=== PATIENT | female | born 1960 | race Caucasian/White ===

== ENCOUNTER 2022-02-05 08:04 | Outpatient (REF) | payer MEDICARE, MEDICAID, SELFPAY ==
[2022-02-05 09:05] LABS: Estimated Average Glucose 117 mg/dL; Hemoglobin A1c % 5.7 %
[2022-02-05 09:49] LABS: Alanine Aminotransferase 14 U/L (0-31); Albumin Level 4.4 g/dL (3.5-5.0); Alkaline Phosphatase 90 U/L (39-117); Anion Gap 16 (12-20); Aspartate Amino Transferase 12 U/L (5-31); Bilirubin Total < 0.2 mg/dL (0.0-1.0); Blood Urea Nitrogen 22 mg/dL (9-16); Calcium 9.3 mg/dL (8.4-10.2); Carbon Dioxide 22 mmol/L (22-29); Chloride 105 mmol/L (96-108); Cholesterol 227 mg/dL; Estimated Glomerular Filt Rate 54; Glucose Random 186 mg/dL (60-115); HDL Cholesterol 67 mg/dL; LDL Cholesterol Calculated 137 mg/dl; Potassium 4.4 mmol/L (3.3-5.1); Sodium 139 mmol/L (135-145); Total Protein 7.1 g/dL (6.5-8.0); Triglycerides 119 mg/dL
[2022-02-05 10:11] LABS: T4 Thyroxine 6.9 ug/dL (4.5-12.0); Thyroid Stimulating Hormone 0.54 uIU/mL (0.32-4.0)
== END 2022-02-05 08:05 | disposition home or self-care (01) ==
LOC: HO.LAB 08:04
PROVIDERS: PCP Internal Medicine; Visit Provider Psychiatry & Neurology Psychiatry
DX: Z79.899 Other long term (current) drug therapy (principal)
CPT/HCPCS: 36415; 80053; 80061; 83036; 84436; 84443

== ENCOUNTER 2023-05-16 23:54 | Observation (INO) | payer MEDICARE, MEDICAID, SELFPAY ==
--- NOTE | ~2023-05-16 | CT_ITS ---
EXAMINATION: CTA NECK WITH CONTRAST (STROKE) CTA BRAIN WITH CONTRAST (STROKE) CLINICAL INFORMATION: Suspect acute stroke. Assess for major vessel occlusion. Please call report. COMPARISON: None available. TECHNIQUE: CTA of the head and neck was performed in the axial plane from the mediastinum to the skull vertex using 70 mL Omnipaque 350 intravenous contrast. Additional reformatted multiplanar images including maximum intensity projection MIP images are generated on the CT workstation. This CT examination was performed using dose optimization techniques as appropriate, variously including the following: *Automated exposure control *Adjustment of mA and/or kV according to patient size (this includes techniques or standardized protocols for targeted exams where dose is matched to indication/reason for exam; i.e. extremities or head) *Use of iterative reconstruction technique DLP: 1292 mGy-cm FINDINGS: The degree of stenosis determined by criteria similar to NASCET. BONES, SOFT TISSUES AND LUNG APICES: Bronchial wall thickening. Scattered centrilobular nodular opacities with areas of tree-in-bud nodularity throughout the upper lungs. CTA NECK: The aortic arch has a two-vessel branching pattern and the major arch vessel origins are non-stenotic. The vertebral arteries are co-dominant and both vertebral origins are widely patent. Both common carotid arteries are normal in course and caliber. Both internal carotid arteries demonstrate mild atherosclerotic plaque without significant stenosis. CTA HEAD: There is normal opacification of the major intracranial vessels. No acute proximal large vessel occlusion, focal flow-limiting stenosis, or saccular intracranial aneurysm is identified. No abnormal parenchymal enhancement or regional oligemia is visualized. HEAD (delayed): No intracranial mass, intercerebral edema, hemorrhage, or midline shift is evident. Stable chronic right basal ganglial infarct and mild background chronic white matter small vessel ischemic changes. The ventricles and sulci are stable in size and configuration. No extra-axial collections are appreciated. No pathologic intracranial enhancement. Dural sinuses are patent. The paranasal sinuses are well-aerated and clear. CT/CT angio head neck stroke IMPRESSION: * No large vessel occlusion or hemodynamically significant stenosis within the intracranial or extracranial arterial vasculature. * Stable chronic right basal ganglial infarct and mild background white matter small vessel ischemic changes. * Scattered centrilobular nodular opacities with areas of tree-in-bud nodularity throughout the upper lungs suggestive of infectious or inflammatory bronchiolitis. This critical result was discussed with Dr Manan Perkins at 05/17/2023 1:05AM and it was ascertained that the content and urgency of the report was understood at the time of direct communication.
--- NOTE | ~2023-05-16 | CT_ITS ---
EXAMINATION: CT HEAD WITHOUT CONTRAST (STROKE PROTOCOL) CLINICAL INFORMATION: Stroke protocol. Recent stroke 6 weeks ago with residual left facial droop. Worsening face, arm and leg weakness. COMPARISON: None available. TECHNIQUE: Contiguous axial imaging was performed from the skull base to vertex without intravenous administration of contrast. This CT examination was performed using dose optimization techniques as appropriate, variously including the following: *Automated exposure control *Adjustment of mA and/or kV according to patient size (this includes techniques or standardized protocols for targeted exams where dose is matched to indication/reason for exam; i.e. extremities or head) *Use of iterative reconstruction technique DLP: 530 mGy-cm FINDINGS: Chronic right lentiform infarct extending into the right ratliff radiata. Bolaños-white matter interface is otherwise maintained. No acute intracranial hemorrhage. No abnormal mass effect or midline shift is seen. No extra-axial fluid collections are identified. No hydrocephalus. No significant volume loss. Patchy periventricular and deep white matter hypoattenuation is consistent with mild small vessel ischemic changes. No acute osseous or soft tissue abnormality. The mastoid air cells and visualized portions of the paranasal sinuses are well aerated. CT/CT head for stroke IMPRESSION: * No acute intracranial pathology. * Chronic right basal ganglial infarct and mild background white matter small vessel ischemic changes. This critical result was discussed with Dr Manan Perkins at 05/17/2023 12:25 AM and it was ascertained that the content and urgency of the report was understood at the time of direct communication.
[2023-05-16 23:55] VITALS: BP 160/100; PULSE 80; O2SAT 98; BMI 30.9
--- NOTE | 2023-05-16 23:59 | ED_ITS ---
HPI - Neuro Symptoms/Deficit General Chief Complaint: Weakness Stated Complaint: left arm numbness for 2 hours, stroke 6 weeks ago Time Seen by Provider: 05/16/23 23:59 Source: patient and EMS Mode of arrival: EMS Limitations: no limitations History of Present Illness HPI Narrative: 63-year-old female with a history of hypertension, ovarian cancer (1999), cholecystectomy, stroke with left-sided weakness 6 weeks prior who presents emergency department for evaluation of left arm and leg numbness with heaviness in the left arm with symptoms starting at 22:00 hours while the patient was watching TV. Patient states that when she had her stroke 6 weeks prior the symptoms started with numbness in her arm and leg. Patient states that since her last stroke she has recovered almost full strength in her left leg but still has some weakness in her left arm. Patient was concerned that she was having a new stroke so she called an ambulance and was transported to the emergency department. Paramedics reported a blood pressure 160/100, sinus rhythm on the EKG, O2 saturation 98% on room air with a point of care glucose of 197. Patient was evaluated on the coating engineer stretcher and was brought directly to CT scan. Related Data Previous Rx's Medication Instructions Recorded mirtazapine 15 mg tablet 15 mg PO BEDTIME #90 tabs 04/29/20 quetiapine 25 mg tablet 25 mg PO BID #180 tabs 04/29/20 Allergies Allergy/AdvReac Type Severity Reaction Status Date / Time aspirin [ASA] Allergy Intermediate GI UPSET, Unverified 02/15/20 15:43 nausea and vomiting calcium carbonate [Bufferin] Allergy Unknown Verified 07/20/19 00:00 magnesium [Bufferin] Allergy Unknown Verified 07/20/19 00:00 butter Allergy Unknown vomiting Uncoded 10/09/19 00:00 milk Allergy Unknown vomiting Uncoded 10/09/19 00:00 Review of Systems 2 Review of Systems: Yes all other systems are reviewed and are negative [facility] Past Medical History [facility] Narrative: Past medical history: Hypertension, stroke 6 weeks prior treated at [facility], ovarian cancer in 1999. Surgical history: cholecystectomy, hernia repair. Social history: Patient does smoke cigarettes, she smokes several cigarettes per day times 40 years. She denies alcohol use. She smokes marijuana 2 to 3 times a week Social History Social History Smoked in Last 30 Days: Yes Use of substances other than those prescribed or required for medical reasons: Yes Substance Use Type: Marijuana Substance Use Frequency: Chronic Longstanding Advance Directives: No Advance Directives Information Provided: No Patient : No Physical Exam 2 Vital Signs: Vital Signs: Last Vital Signs Temp 98.7 F 05/17/23 00:47 Pulse 68 05/17/23 00:47 Resp 16 05/17/23 00:47 BP 151/86 H 05/17/23 00:47 Pulse Ox 99 05/17/23 00:47 O2 Del Method Room Air 05/17/23 00:47 BMI result Body Mass Index 30.9 Vital signs revealed an elevated blood pressure of 151/86 Exam General: Awake, alert in no distress Head: Normocephalic, atraumatic EENT: PERRL, Lids normal, sclera normal, conjunctiva normal, nose normal , ears normal, throat without erythema or exudates Neck: Supple, no adenopathy, no trachea midline or C-spine tenderness Lung: breath sounds symmetric, no wheezing, rales or rhonchi Chest: symmetric movement, nontender Heart: regular rate and rhythm, normal S1, S2 no murmurs or rubs Abdomen: soft, non-tender, nondistended, normal bowel sounds Back: no vertebral tenderness, no CVAT Extremities: no deformities, moves all extremities symmetrically Skin: no rashes, no lesion, normal color and warmth Neuro: General: Awake, alert, oriented, normal speech Cranial nerves 2-12: Mild left facial droop Strength: Patient able to hold both upper and lower extremities up his gravity, patient has diminished strength in the left arm compared to the right and the left leg compared to the right Sensory exam: Normal light touch bilaterally symmetric Psych: Pleasant, cooperative Medications Administered Discontinued Medications Generic Name Dose Route Start Last Admin Trade Name Freq PRN Reason Stop Dose Admin Iohexol 70 ml 05/17/23 00:47 05/17/23 00:47 Iohexol 350 Mg/Ml 100 Ml Infus..Btl IV 05/17/23 00:48 70 ml ONCE ONE Administration Medical Decision Making Medical Decision Making MDM Narrative: 63-year-old female with a history of hypertension, stroke 6 weeks prior who presents emergency department for evaluation of numbness and heaviness of her left upper and lower extremity which began at 22:30 hours while she was watching TV. Patient states that the numbness felt similar to the numbness that occurred when she had her previous stroke. Vital signs did reveal an elevated blood pressure. Examination revealed left facial droop and weakness of her left upper and lower extremities compared to the right but these are most likely residual from her stroke 6 weeks prior. Patient's sensory exam was normal. Patient's NIH stroke scale was 1. 01:23 My interpretation patient's laboratory evaluation as follows: CBC was normal. Coags were normal. BUN was elevated 27 with normal creatinine of 0.89. Glucose was elevated 122. Twelve EKG with normal sinus rhythm CT scan of the head revealed a chronic right basal ganglion infarct with mild back from white matter and small-vessel ischemia but no acute stroke or bleed. CT angiogram of the head and neck revealed no retrievable large vessel occlusion The patient's presentation is concerning for possible stroke versus TIA. I will discuss admission with the covering hospitalist. Differential Diagnosis Differential Diagnoses: The differential diagnosis associated with the presentation includes Differential diagnosis includes was not limited to stroke, cerebral bleed, electrolyte abnormality, anemia, anxiety Admission/Observation Consideration of admission/observation: Escalation of care including admission/observation considered Consult Healthcare Provider Management of the patient was discussed with: Hospitalist Lab Data MDM Lab Attestation statement: I reviewed the patient's lab results. See MDM above 05/17/23 01:01 05/17/23 01:01 Labs: Lab Results 05/16/23 05/17/23 05/17/23 Range/Units 23:58 00:01 01:01 WBC 9.7 (4.8-10.8) X10*3/uL RBC 4.92 (4.20-5.50) X10*6/uL Hgb 13.3 (12.0-16.0) g/dl Hct 40.6 (37.0-47.0) % MCV 82.5 (80.0-98.0) fL MCH 27.0 (27.0-33.0) pg MCHC 32.8 (31.0-35.0) g/dl RDW 14.9 (11.0-16.0) % Plt Count 348 (160-400) X10*3/uL MPV 8.8 L (9.4-12.3) fL Immature Gran % (Auto) 0.3 (0.0-0.4) % Neut % (Auto) 70.5 (45-73) % Lymph % (Auto) 18.7 L (20-40) % Jasper % (Auto) 9.0 (2-11) % Eos % (Auto) 0.9 (0-4) % Baso % (Auto) 0.6 (0-2) % Lymph # (Auto) 1.8 (1.2-4.9) X10*3/uL Jasper # (Auto) 0.9 (0.1-1.2) X10*3/uL Eos # (Auto) 0.1 (0.0-0.4) X10*3/uL Baso # (Auto) 0.1 (0.0-0.2) X10*3/uL Abs Immat Gran (auto) 0.03 (0.00-0.03) X10*3/uL Absolute Neuts (auto) 6.8 (2.0-8.3) x10*3/uL Absolute Nucleated RBC 0.000 (0.0-0.012) X10*3/uL Nucleated RBC % (auto) 0.0 (0.0-0.2) /100WBC PT 10.1 L (11.1-13.3) SEC Whole Blood PT 13.6 H (11.1-13.5) sec INR 0.8 L (0.9-1.1) Whole Blood INR 1.0 (0.9-1.1) APTT 32.1 (26.0-36.4) SEC Sodium 138 (135-145) mmol/L Potassium 4.4 (3.3-5.1) mmol/L Chloride 108 (96-108) mmol/L Carbon Dioxide 22 (22-29) mmol/L Anion Gap 12 (12-20) BUN 27 H (9-16) mg/dL Creatinine 0.89 (0.5-1.4) mg/dL Estim Creat Clear Calc 61.1 Estimated GFR > 60 POC Glucose 156 H (60-115) mg/dL Random Glucose 122 H (60-115) mg/dL Calcium 9.8 (8.4-10.2) mg/dL Total Bilirubin 0.3 (0.0-1.0) mg/dL Direct Bilirubin 0.1 (0.0-0.5) mg/dL AST 17 (5-31) U/L ALT 21 (0-31) U/L Alkaline Phosphatase 91 (39-117) U/L Total Creatine Kinase 44 (26-140) U/L Troponin I High Sens < 2.7 (<3.5-17.0) ng/L Total Protein 6.8 (6.5-8.0) g/dL Albumin 4.3 (3.5-5.0) g/dL Ethyl Alcohol < 10 mg/dL Independent Interpretation I performed an independent interpretation of an: EKG Interpretation: My interpretation patient's 12 EKG done at 00:10 hours is as follows: Normal sinus rhythm with a rate of 81, normal PA interval, QRS duration, QTC interval, no ST segment elevation, no ST segment depression, no PACs, no PVCs no T-wave significant abnormalities Radiology Impression Discussion of test interpretation with radiology: I discussed test interpretation with the radiologist and I have reviewed the radiologist's reading. Radiologist Impression: CT head for stroke IMPRESSION: * No acute intracranial pathology. * Chronic right basal ganglial infarct and mild background white matter small vessel ischemic changes. This critical result was discussed with Dr Manan Perkins at 05/17/2023 12:25 AM and it was ascertained that the content and urgency of the report was understood at the time of direct communication. Dictated By: Mehran Tracey MD CT angio head neck stroke IMPRESSION: * No large vessel occlusion or hemodynamically significant stenosis within the intracranial or extracranial arterial vasculature. * Stable chronic right basal ganglial infarct and mild background white matter small vessel ischemic changes. * Scattered centrilobular nodular opacities with areas of tree-in-bud nodularity throughout the upper lungs suggestive of infectious or inflammatory bronchiolitis. This critical result was discussed with Dr Manan Perkins at 05/17/2023 1:05AM and it was ascertained that the content and urgency of the report was understood at the time of direct communication. Dictated By: Mehran Tracey MD NIH Stroke Scale Internal: Initial- Upon Arrival Level of Consciousness: Alert Level of Consciousness Questions: Answers both questions correctly Level of Consciousness Commands: Performs both tasks correctly Best Gaze: Normal Visual: No visual loss Facial Palsy: Minor paralyis Motor Arm (Right): No drift Motor Arm (Left): No drift Motor Leg (Right): No drift Motor Leg (Left): No drift Limb Ataxia: Absent Sensory: Normal Best Language: No aphasia Dysarthia: Normal Extinction and Inattention: No abnormality Score: 1 Critical Care Time Critical Care Time Critical Care Time: Yes Total Critical Care Time: 45 Attestation: Critical Care: The patient was critically ill with a high probability of imminent or life threatening deterioration. I spent greater than 30 minutes of discontinuous time evaluating the patient,delivering critical care at the bedside, discussing and evaluating pertinent data with consultants. Critical care time does not include time spent performing separately billable procedures or teaching. Total time spent performing critical care was 45 minutes. Discharge Plan Discharge Prescriptions: No Action mirtazapine 15 mg tablet 15 mg PO BEDTIME Qty: 90 3RF quetiapine 25 mg tablet 25 mg PO BID Qty: 180 5RF
--- NOTE | 2023-05-16 23:59 | ECG_ITS ---
Test Reason : stroke Blood Pressure : / mmHG Vent. Rate : 081 BPM Atrial Rate : 081 BPM P-R Int : 130 ms QRS Dur : 090 ms QT Int : 410 ms P-R-T Axes : 075 038 064 degrees QTc Int : 476 ms Normal sinus rhythm Nonspecific T wave abnormality Abnormal ECG When compared with ECG of 31-MAR-2019 02:23, No significant change was found Referred By: Manan Perkins Electronically Signed By:MOSHE TORO MD
[2023-05-17 00:04] LABS: Prothrombin Time Whole Bld POC 13.6 sec (11.1-13.5)
[2023-05-17 00:07] LABS: Glucose, Whole Blood 156 mg/dL (60-115)
[2023-05-17 00:13] VITALS: BP 151/80; PULSE 80; RESP 16; TEMP 36.2; O2SAT 98
[2023-05-17 00:47] VITALS: BP 151/86; PULSE 68; RESP 16; TEMP 37.1; O2SAT 99
[2023-05-17] MEDS: iohexoL 350 MG/ML 100 ML INFUS..BTL 70 ML IV (00:47)
[2023-05-17 01:05] LABS: MANUAL DIFF FLAG NO
[2023-05-17 01:07] LABS: Basophils Absolute Auto 0.1 X10*3/uL (0.0-0.2); Basophils Percent Auto 0.6 % (0-2); Eosinophils Absolute Auto 0.1 X10*3/uL (0.0-0.4); Eosinophils Percent Auto 0.9 % (0-4); Hematocrit 40.6 % (37.0-47.0); Hemoglobin 13.3 g/dl (12.0-16.0); Imm Gran Abs Auto 0.03 X10*3/uL (0.00-0.03); Imm Gran Pct Auto 0.3 % (0.0-0.4); Lymphocytes Absolute Auto 1.8 X10*3/uL (1.2-4.9); Lymphocytes Percent Auto 18.7 % (20-40); Mean Corpuscular HGB Conc 32.8 g/dl (31.0-35.0); Mean Corpuscular Volume 82.5 fL (80.0-98.0); Mean Platelet Volume 8.8 fL (9.4-12.3); Monocytes Absolute Auto 0.9 X10*3/uL (0.1-1.2); Neutrophils Absolute Auto 6.8 x10*3/uL (2.0-8.3); Neutrophils Percent Auto 70.5 % (45-73); Platelet Count 348 X10*3/uL (160-400); Red Blood Count 4.92 X10*6/uL (4.20-5.50); Red Cell Distribution Width 14.9 % (11.0-16.0); White Blood Count 9.7 X10*3/uL (4.8-10.8)
[2023-05-17 01:12] LABS: INTERNATIONAL NORM RATIO 0.8 (0.9-1.1); Prothrombin Time 10.1 SEC (11.1-13.3)
[2023-05-17 01:15] LABS: Partial Thromboplastin Time 32.1 SEC (26.0-36.4)
[2023-05-17 01:16] LABS: Stroke Lab Use COMPLETE
[2023-05-17 01:24] LABS: Alanine Aminotransferase 21 U/L (0-31); Albumin Level 4.3 g/dL (3.5-5.0); Alkaline Phosphatase 91 U/L (39-117); Anion Gap 12 (12-20); Aspartate Amino Transferase 17 U/L (5-31); Bilirubin Direct 0.1 mg/dL (0.0-0.5); Bilirubin Total 0.3 mg/dL (0.0-1.0); Blood Urea Nitrogen 27 mg/dL (9-16); Calcium 9.8 mg/dL (8.4-10.2); Carbon Dioxide 22 mmol/L (22-29); Chloride 108 mmol/L (96-108); Creatinine Clr Calc Pharmacy 61.1; Estimated Glomerular Filt Rate > 60; Ethanol < 10 mg/dL; Glucose Random 122 mg/dL (60-115); Potassium 4.4 mmol/L (3.3-5.1); Sodium 138 mmol/L (135-145); Total Protein 6.8 g/dL (6.5-8.0)
[2023-05-17 01:28] LABS: Troponin-I High Sensitivity < 2.7 ng/L (<3.5-17.0)
--- OUTSIDE RECORDS SUMMARY | 2023-05-17 01:31 | XMS_ITS | Continuity of Care Document ---
Author Name Unknown Organization [facility] ter Address [address] [place] [id number]- Care Team Providers Care Medical Imaging Technician Name Role Phone Not on Staff, PCP Primary Care Physician Unavail able Encounter [facility] Date(s): 03/30/23 - 04/01/[address] [id number]- Encounter Diagnosis Arterial ischemic stroke(Final) - 03/31/23 Anxiety and depression(Final) - 03/31/23 Discharge Disposition: A-D/C Home Attending Physician: Britney Gomez MD Admitting Physician: Cuco Mcfadden DO Referring Physician: Not on Staff, Referring MD Allergies, Adverse Reactions, Alerts Substance Reaction Severity Status aspirin GI s/s Active Motrin GI s/s Active Immunizations Given and Recorded Vaccine Date Status Refusal Reason influenza virus vaccine, inactivated 04/01/23 Give n influenza virus vaccine, inactivated 05/08/20 Reuben rded influenza virus vaccine, inactivated 02/23/16 Reuben rded influenza virus vaccine, inactivated 03/28/15 Reuben rded SARS-CoV-2 (COVID-19) mRNA-1273 vaccine 05/01/21 R ecorded SARS-CoV-2 (COVID-19) mRNA-1273 vaccine 09/19/20 R ecorded SARS-CoV-2 (COVID-19) mRNA-1273 vaccine 08/22/20 R ecorded pneumococcal 23-valent vaccine 12/15/12 Given pneumococcal 23-valent vaccine 01/06/12 Recorded Fluarix (oldterm) 03/15/12 Given Tet/diphth/pertussis, acel (oldterm) 03/15/12 Give n tetanus/diphtheria/pertussis, acel(Tdap) 03/15/12 Recorded Fluvirin (oldterm) 04/03/11 Given Medications busPIRone 30 mg oral tablet 1 tablet = 30 mg, By Mouth, 2 times a day, # 180 tablet, 0 Refills, Maintenance, 03/30/23 21:59:00 EDT, Tablet, Partial fill upon patient request if the prescription is for a schedule II opioid drug. Start Date: 03/30/23 Status: Ordered escitalopram 20 mg oral tablet 1 tablet = 20 mg, By Mouth, Daily, # 30 tablet, 0 Refills, Maintenance, 03/30/23 22:01:00 EDT, Tablet, Partial fill upon patient request if the prescription is for a schedule II opioid drug. Start Date: 03/30/23 Status: Ordered hydrOXYzine hydrochloride 50 mg oral tablet 1 tablet = 50 mg, By Mouth, 3 times a day, PRN for anxiety, # 40 tablet, 0 Refills, Maintenance, 03/30/23 21:59:00 EDT, Tablet, Partial fill upon patient request if the prescription is for a scheduleII opioid drug. Start Date: 03/30/23 Status: Ordered Lipitor 40 mg oral tablet = 40 mg, By Mouth, Daily at bedtime, 0 Refills, Maintenance, 04/01/23 13:20:00 EDT, Tablet, Partialfill upon patient request if the prescription is for a schedule II opioid drug. Start Date: 04/01/23 Status: Ordered melatonin 3 mg oral tablet = 3 mg, By Mouth, Daily at bedtime, PRN Insomnia, 0 Refills, Maintenance, 04/01/23 13:21:00 EDT, Tablet, Partial fill upon patient request if the prescription is for a schedule II opioid drug. Start Date: 04/01/23 Status: Ordered MiraLax Powder 1 pack/packet = 17 Gm, By Mouth, Daily, PRN Constipation, 0 Refills, Maintenance, 04/01/23 13:21:00EDT, Powder, Partial fill upon patient request if the prescription is for a schedule II opioid drug. Start Date: 04/01/23 Status: Ordered mirtazapine 45 mg oral tablet 1 tablet = 45 mg, By Mouth, Daily at bedtime, # 30 tablet, 0 Refills, Maintenance, 03/30/23 22:00:00 EDT, Tablet, Partial fill upon patient request if the prescription is for a schedule II opioid drug. Start Date: 03/30/23 Status: Ordered Nicotine = 21 mg, Topically, Daily, 0 Refills, Maintenance, 04/01/23 13:21:00 EDT, Patch, Partial fill upon patient request if the prescription is for a schedule II opioid drug. Start Date: 04/01/23 Status: Ordered Plavix 75 mg oral tablet 75 mg, By Mouth, Daily, Refills 0, Maintenance, 04/01/23 13:21:00 EDT, Partial fill upon patient request if the prescription is for a schedule II opioid drug. Start Date: 04/01/23 Status: Ordered propranolol 10 mg oral tablet 10 mg, Tablet, By Mouth, 04/01/23 10:02:00 EDT Start Date: 04/01/23 Stop Date: 04/01/23 Status: Completed propranolol 10 mg oral tablet 10 mg, 1, tablet, By Mouth, 2 times a day, # 180 tablet, Refills 0, Maintenance, 03/30/23 22:00:00 EDT, Partial fill upon patient request if the prescription is for a schedule II opioid drug. Start Date: 03/30/23 Status: Ordered QUEtiapine 50 mg oral tablet 1 tablet = 50 mg, By Mouth, 2 times a day, # 180 tablet, 0 Refills, Maintenance, 03/30/23 21:59:00 EDT, Tablet, Partial fill upon patient request if the prescription is for a schedule II opioid drug. Start Date: 03/30/23 Status: Ordered Problem List Condition Confirmation Course Effective Dates Status Health St atus Informant Abdominal pain NOS Confirmed 06/03/11 Active Cannabis user, Patient acknowledges use Confirmed Active Chest pain NOS Confirmed 05/01/11 Active Chronic abdominal pain Confirmed Active Chronic nausea Confirmed Active Cigarette smoker Confirmed Active Depression Confirmed Active Depression, major Confirmed 04/05/12 Active Depressive Disorder, Not Elsewhere Classified Confirmed 04/05/12 Active GERD (gastroesophageal reflux disease) Confirmed Active Obesity Confirmed Active 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 Panic disorder Confirmed Active Panic Disorder without Agoraphobia Confirmed 04/05/12 Active Results Radiology Reports * Exam Date Time Procedure Performing Provider Status 03/31/23 4:32 AM MRI Brain W/O Contrast Joselin Dang; Au th (Verified) Notes: (MRI Brain W/O Contrast) Reason For Exam: left sided weakness, r/o infarct;Hemiparesis RESULT: MRI Brain W/O Contrast MRI Brain W/O Contrast INDICATION: Reason: Hemiparesis; left sided weakness, r o infarct; Clinical Question(s): Infarction; Order Comment: Please see Reference Text for complete list of contraindications Infarction TECHNIQUE: MRI of the brain was performed without contrast utilizing sagittal T1, axial T2, axial FLAIR, axial SWAN, and axial DWI sequences. COMPARISON: CT scan of the head 03/30/2023. FINDINGS: Multiple images are degraded by patient motion which diminishes detail, and interpretation was made in light of this technical confine. BRAIN and EXTRA-AXIAL SPACES: There is a confluent region of T2 bright signal and mildly restricteddiffusion involving the posterior right caudate body and putamen. This correlates with the region of diminished density on the prior studies. A chronic left thalamocapsular lacunar infarct is present, and small FLAIR bright foci are also noted within the gamaliel. These are compatible with chronic microangiopathic/small vessel ischemic change.No abnormal susceptibility artifact to indicate hemorrhage. The ventricles are normal in size. Mild prominence of the sulci. No extra-axial fluid collection. EXTRACRANIAL SOFT TISSUES: Orbits are unremarkable. Paranasal sinuses and mastoids are unremarkable. BONES: Marrow signal is preserved. IMPRESSION: 1. Acute-subacute right corpus striatal infarct without hemorrhagic transformation. 2. Chronic left thalamocapsular junction lacunar infarct. WSN: [id number] Ordering Physician: Gagan Crouch Dictated By: Jeovanny Singh MD Dictated Date/Time: 03/31/23 7:46 am Reviewed By: Jeovanny Singh MD Signed By: Jeovanny Singh MD Signed Date/Time: 03/31/23 7:46 am Transcribed By: CANDICE Transcribed Date/Time: 03/31/23 7:41 am * Exam Date Time Procedure Performing Provider Status 03/30/23 2:39 PM Chest Portable Rod Loaiza; Auth ( Verified) Notes: (Chest Portable) Reason For Exam: Stroke;Other: RESULT: Chest Portable Chest Portable Hx of Present Illness: Pt reports 3 days ago she started with falling, leaning to L side, having slurred speech and a L facial droop. L arm is weak and numb; Reason: Other:; Stroke; Clinical Question(s): CHF COMPARISON: Multiple priors with the most recent dated 04/19/2011. FINDINGS: LINES AND TUBES: None. LUNGS AND PLEURA: Clear lungs. Normal pulmonary vascularity. No pleural effusion. No pneumothorax. HEART, MEDIASTINUM AND LYSSA: Heart is normal in size. Normal mediastinal and hilar contour. BONES AND SOFT TISSUES: No acute abnormality. IMPRESSION: No acute abnormality. WSN: [id number] Ordering Physician: Mary Martinez Dictated By: Steven Hernandez MD, V Dictated Date/Time: 03/30/23 3:22 pm Reviewed By: Steven Hernandez MD, V Signed By: Steven Hernandez MD, V Signed Date/Time: 03/30/23 3:22 pm Transcribed By: CANDICE Transcribed Date/Time: 03/30/23 3:21 pm * Exam Date Time Procedure Performing Provider Status 03/30/23 2:[address] Angio Neck Hyperacute Stroke Cathy Chu; Auth (Verified) Notes: (CT Angio Neck Hyperacute Stroke) Reason For Exam: Aneurysm, neck vessel(s);Other: RESULT: CT Angio Neck Hyperacute Stroke CT Angio Head Hyperacute Stroke, CT Angio Neck Hyperacute Stroke Hx of Present Illness: Pt reports 3 days ago she started with falling, leaning to L side, having slurred speech and a L facial droop. L arm is weak and numb; Reason: Other:; Stroke; Clinical Question(s): Other:; Hematoma Aneurysm / Other: TECHNIQUE: CT angiogram of the head and neck was performed after bolus administration of intravenous contrast. 100 mL of Omnipaque 300 was administered intravenously. Coronal and sagittal MIP reformatted images were obtained. Additional 3-D images were created on a separate workstation under concurrent supervision by the attending radiologist. All stenoses are measured using NASCET criteria. Weight-based protocol using automatic tube modulation was used to optimize exposure parameters. RADIATION DOSE PARAMETERS: CTDIvol Body: 10.33 mGy, DLP Body: 383 mGy*cm. CTDIvol Head: 45.50 mGy, DLP Head: 772 mGy*cm. COMPARISON: Noncontrast CT head performed concurrently. FINDINGS: CTA OF THE NECK: Arch: There is a three vessel aortic arch. The origins of the supra aortic vessels are patent. Right carotid system: The common carotid and cervical internal carotid arteries are patent. There is minimal atherosclerotic plaque at the carotid bifurcation, but no ICA stenosis (0%) by NASCET criteria. Left carotid system: The common carotid and cervical internal carotid arteries are patent. No stenosis (0%) by NASCET criteria. The left ICA is tortuous. There is a left-dominant vertebral artery system. Right vertebral: Patent. Left vertebral: Patent. Other: Soft tissues and bones: No evidence of lymphadenopathy or mass. The thyroid is unremarkable. Visualized lungs are blurred by motion artifact, without significant superimposed airspace opacity. Mild degenerative changes of the cervical spine are noted, without acute osseous abnormality. CTA OF THE HEAD: Anterior circulation: Minimal calcification is seen along the intracranial ICAs without significantnarrowing. There is a 2 mm aneurysm projected posteriorly from the right supraclinoid ICA. The anterior cerebral arteries are patent and normal in caliber. Bilateral M1 and proximal M2 segments are patent and normal in caliber. Posterior circulation: The right vertebral artery is hypoplastic after giving off PICA, normal variant. The left vertebral is normal in caliber. The basilar artery, superior cerebellar arteries, and posterior cerebral arteries are patent with a small left posterior communicating artery noted. Veins: Major dural venous sinuses are patent. Other: Soft tissues and bones: There is hypodensity in the right posterior thalamus extending into the ratliff radiata and into the caudate body suggesting subacute ischemia. Gaze is noted to be towards the right. No significant opacification in the paranasal sinuses or mastoid air cells. IMPRESSION: 1. No proximal occlusion or high grade stenosis in the major arteries of the head and neck. 2. Suspected subacute right corpus striatum infarct. 3. 2 mm right supraclinoid ICA aneurysm. WSN: [id number] Ordering Physician: Mary Martinez Dictated By: Kendra Lawson MD Dictated Date/Time: 03/30/23 3:05 pm Reviewed By: Kendra Lawson MD Signed By: Kendra Lawson MD Signed Date/Time: 03/30/23 3:05 pm Transcribed By: CANDICE Transcribed Date/Time: 03/30/23 2:30 pm * Exam Date Time Procedure Performing Provider Status 03/30/23 2:[address] Angio Head Hyperacute Stroke Cathy Chu; Auth (Verified) Notes: (CT Angio Head Hyperacute Stroke) Reason For Exam: Stroke;Other: RESULT: CT Angio Head Hyperacute Stroke CT Angio Head Hyperacute Stroke, CT Angio Neck Hyperacute Stroke Hx of Present Illness: Pt reports 3 days ago she started with falling, leaning to L side, having slurred speech and a L facial droop. L arm is weak and numb; Reason: Other:; Stroke; Clinical Question(s): Other:; Hematoma Aneurysm / Other: TECHNIQUE: CT angiogram of the head and neck was performed after bolus administration of intravenous contrast. 100 mL of Omnipaque 300 was administered intravenously. Coronal and sagittal MIP reformatted images were obtained. Additional 3-D images were created on a separate workstation under concurrent supervision by the attending radiologist. All stenoses are measured using NASCET criteria. Weight-based protocol using automatic tube modulation was used to optimize exposure parameters. RADIATION DOSE PARAMETERS: CTDIvol Body: 10.33 mGy, DLP Body: 383 mGy*cm. CTDIvol Head: 45.50 mGy, DLP Head: 772 mGy*cm. COMPARISON: Noncontrast CT head performed concurrently. FINDINGS: CTA OF THE NECK: Arch: There is a three vessel aortic arch. The origins of the supra aortic vessels are patent. Right carotid system: The common carotid and cervical internal carotid arteries are patent. There is minimal atherosclerotic plaque at the carotid bifurcation, but no ICA stenosis (0%) by NASCET criteria. Left carotid system: The common carotid and cervical internal carotid arteries are patent. No stenosis (0%) by NASCET criteria. The left ICA is tortuous. There is a left-dominant vertebral artery system. Right vertebral: Patent. Left vertebral: Patent. Other: Soft tissues and bones: No evidence of lymphadenopathy or mass. The thyroid is unremarkable. Visualized lungs are blurred by motion artifact, without significant superimposed airspace opacity. Mild degenerative changes of the cervical spine are noted, without acute osseous abnormality. CTA OF THE HEAD: Anterior circulation: Minimal calcification is seen along the intracranial ICAs without significantnarrowing. There is a 2 mm aneurysm projected posteriorly from the right supraclinoid ICA. The anterior cerebral arteries are patent and normal in caliber. Bilateral M1 and proximal M2 segments are patent and normal in caliber. Posterior circulation: The right vertebral artery is hypoplastic after giving off PICA, normal variant. The left vertebral is normal in caliber. The basilar artery, superior cerebellar arteries, and posterior cerebral arteries are patent with a small left posterior communicating artery noted. Veins: Major dural venous sinuses are patent. Other: Soft tissues and bones: There is hypodensity in the right posterior thalamus extending into the ratliff radiata and into the caudate body suggesting subacute ischemia. Gaze is noted to be towards the right. No significant opacification in the paranasal sinuses or mastoid air cells. IMPRESSION: 1. No proximal occlusion or high grade stenosis in the major arteries of the head and neck. 2. Suspected subacute right corpus striatum infarct. 3. 2 mm right supraclinoid ICA aneurysm. WSN: [id number] Ordering Physician: Mary Martinez Dictated By: Kendra Lawson MD Dictated Date/Time: 03/30/23 3:05 pm Reviewed By: Kendra Lawson MD Signed By: Kendra Lawson MD Signed Date/Time: 03/30/23 3:05 pm Transcribed By: CANDICE Transcribed Date/Time: 03/30/23 2:30 pm * Exam Date Time Procedure Performing Provider Status 03/30/23 2:[address] Head-Hyper Acute Stroke Chapman , Co lleen; Auth (Verified) Notes: (CT Head-Hyper Acute Stroke) Reason For Exam: Neuro deficit, acute, stroke suspected;Other: RESULT: CT Head-Hyper Acute Stroke CT Head-Hyper Acute Stroke INDICATION: Hx of Present Illness: Pt reports 3 days ago she started with falling, leaning to L side, having slurred speech and a L facial droop. L arm is weak and numb; Reason: Other:; Neuro deficit, acute, stroke suspected; Clinical Question(s): Other:; Hematoma Infarction TECHNIQUE: Noncontrast head CT using axial technique and reconstructed in axial and coronal planes.Iterative reconstruction techniques are used to optimize dose and image quality. CTDIvol Body: 10.33 mGy, DLP Body: 383 mGy*cm. CTDIvol Head: 45.50 mGy, DLP Head: 772 mGy*cm. COMPARISON: None. FINDINGS: Orthodontic Lab Technician view findings, lines and tubes: None. BRAIN AND EXTRA-AXIAL SPACES: No parenchymal hemorrhage, midline shift, or mass effect. Bolaños-white matter differentiation is wellpreserved. No acute infarct. Old right basal ganglia lacunar infarct. Ventricles, sulci, and basilar cisterns are normal. Mild low-density white matter changes. No subarachnoid hemorrhage. No subdural or epidural collection. CALVARIUM, SKULL BASE, AND SOFT TISSUES: No fractures or suspicious bony lesions. The paranasal sinuses and mastoid air cells are clear. Visualized orbits and globes are intact. The extracranial soft tissues are unremarkable. IMPRESSION: No acute intracranial pathology. Mild chronic small vessel ischemic changes. WSN: [id number] Ordering Physician: Mary Martinez Dictated By: Yassine Cullen MD Dictated Date/Time: 03/30/23 2:27 pm Reviewed By: Yassine Cullen MD Signed By: Yassine Cullen MD Signed Date/Time: 03/30/23 2:27 pm Transcribed By: CANDICE Transcribed Date/Time: 03/30/23 2:22 pm Vital Signs Most recent to oldest [Reference Range]: 1 2 3 Height 156 cm (03/31/23 5:15 PM) 156 cm (03/31/23 1:43 PM) Oxygen Saturation [94-100 %] 96 % (04/01/23 1:12 PM) 96 % (04/01/23 6:10 AM) 96 % (04/01/23 4:15 AM) Pulse Rate [55-90 bpm] 98 bpm *H* (04/01/23 2:28 PM) 120 bpm *H* (04/01/23 1:12 PM) 117 bpm *H* (04/01/23 9:16 AM) Blood Pressure [90-138/55-84 mm Hg] 130/104mm Hg (04/01/23 1:12 PM) 136/113mm Hg (04/01/23 9:16 AM) 127/77mm Hg (04/01/23 6:10 AM) Respiratory Rate [16-30 br/min] 18 br/min (04/01/23 1:12 PM) 18 br/min (04/01/23 9:16 AM) 18 br/min (04/01/23 6:10 AM) Temperature [96.8-100.4 DegF] 98.5 DegF (04/01/23 6:10 AM) 98.2 DegF (04/01/23 2:32 AM) 92.2 DegF *L* (03/31/23 10:44 PM) Mode of Delivery (Oxygen) Room air (04/01/23 1:12 PM) Room air (04/01/23 6:10 AM) Room air (04/01/23 4:15 AM) Blood pressure sites Arm, right (03/31/23 1:43 PM) Arm, right (03/31/23 9:09 AM) Arm, left (03/31/23 3:38 AM) Temperature Route Oral (04/01/23 6:10 AM) Oral (04/01/23 2:32 AM) Oral (03/31/23 10:44 PM) Social History Social History Type Response Smoking Status 5-9 cigarettes (betw een 1/4 to 1/2 pack)/day in last 30 days; Interested in cessation: Yes; Patient wants NRT during admission Yes; Other: 40+ years smoking. Has decreased to a half a pack or less for the last few months.; entered on: 03/31/23 Sex History and physical note * Gagan Crouch MD: PERFORM Event Display: History and Physical Hospital Authored Date: Patient: ??JENNIFERADOLPH BENSON ? Age:??62 Years?Sex:??Female?:??[id number]?? Chief Complaint/Reason for Consultation L sided weakness with facial droop and slurred speech x 3 days. History of Present Illness Patient is a 62-year-old female with past medical history of hypertension, tobacco and cannabis smoker, anxiety/depression, history of panic attack, history of substance abuse noted in neurology notefrom today, presented to ED with left-sided weakness of 3 days.?? Initially she thought it would improve so did not seek medical attention but since it was not improving came to the hospital today.??At the time of my interview she states that her left leg strength is improved but left upper extremity continues to be weak.?? She denies being on aspirin or Plavix.?? Reports only taking the medication bottles that he she has in her purse which I reviewed.?She does report some issues with speech. She denies any cough or runny nose or sore throat. ??No fever or chills. ??No chest pain or shortness of breath or palpitation. ??No??history of CVA. ??No??history of VTE.?? No??abdominal pain or constipation or diarrhea or nausea or vomiting. ??No dysuria, urgency or frequency.?? No headache or vision changes. ??She feels anxious and wants her??psychiatric medications. ?? In the ED she underwent CT??and CTA head and neck for stroke rule out.?? Neurology was consulted. ??Plavix 300 mg??and lorazepam 2 mg was given and she is being admitted for further management. ?? Review of Systems All other review of systems were negative with the exception of those noted above in the HPI.?? Objective ? Vital Signs?? Temperature: 98.1 DegF (03/30/23 20:05:00) Temperature Route: Oral (03/30/23 20:05:00) Pulse Rate:??99 bpm??High (03/31/23 01:16:00) Respiratory Rate: 18 br/min (03/31/23 01:16:00) Systolic Blood Pressure: 115 mm Hg (03/31/23 01:16:00) Diastolic Blood Pressure: 65 mm Hg (03/31/23 01:16:00) Blood pressure sites: Arm, left (03/30/23 23:36:00) Mean Arterial Pressure: 82 mm Hg (03/31/23 01:16:00) Pulse Pressure: 50 mm Hg (03/31/23 01:16:00) Oxygen Saturation: 98 % (03/31/23 01:16:00) Mode of Delivery (Oxygen): Room air (03/31/23 01:16:00) Early Warning Score: 0 (03/31/23 01:17:03) ? Intake/Output? No Data Available ?? NIH Stroke Scale Level of Consciousness for Stroke Scale: Alert (03/30/23 14:32:00) Response Month/Age: Answers both questions correctly (03/30/23 14:32:00) Response Open/Close Eyes: Performs both tasks correctly (03/30/23 14:32:00) Best Gaze: Normal (03/30/23 14:32:00) Visual: No visual loss (03/30/23 14:32:00) Facial Palsy: Minor paralysis (03/30/23 14:32:00) Motor Function Left Arm: Drift (03/30/23 14:32:00) Motor Function Right Arm: No drift (03/30/23 14:32:00) Motor Function Left Leg: Drift (03/30/23 14:32:00) Motor Function Right Leg: No drift (03/30/23 14:32:00) Limb Ataxia: Absent (03/30/23 14:32:00) Sensory: Normal; no sensory loss (03/30/23 14:32:00) Best Language: No aphasia (03/30/23 14:32:00) Dysarthria NIH Stroke Scale: Mild to moderate dysarthria (03/30/23 14:32:00) Extinction and Inattention: No abnormality (03/30/23 14:32:00) NIH Stroke Scale Score: 4 (03/30/23 14:32:00) ? Physical Exam Constitutional: Alert, in no acute distress. Head EENT: Extraocular muscle movement intact.??Moist mucous membranes.?? Neck: Supple. No JVD. Respiratory: Clear to auscultation. No wheezing or crackles. No use of accessory muscles. Cardiovascular: S1S2 regular. No murmurs, rubs or gallops. Gastrointestinal: Abdomen soft, non-tender, non-distended. Normal bowel sounds. Genitourinary: No CVA tenderness. Extremities: No lower extremity pitting??edema. No cyanosis or clubbing. Neurologic: AAOx3,??Dysarhtria and facial droop +,??LUE 3/5 and LLE 4/5,?RUE and RLE 5/5 Skin: No rash. Psychiatric: Normal mood and affect Assessment/Plan Diagnoses ?? Patient is a 62-year-old female with past medical history of hypertension, tobacco and cannabis smoker, anxiety/depression, history of panic attack, history of substance abuse noted in neurology note from today, presented to ED with left-sided weakness of 3 days.? Rule out CVA Left hemiparesis -CT head/CTA with suspected subacute right corpus stratum infarct, 2 mm right supraclinoid ICA aneurysm, no proximal occlusion or high-grade stenosis of major arteries of head and neck. -Left-sided weakness improving per patient.?? Able to move left lower extremity now, continues to have facial droop -Denies any symptoms concerning for infection, chest x-ray negative.?? No dysuria, urgency or frequency.?? She does have mild leukocytosis of 12.4.?? Trend white cell count and temperature curve. ??Check UA and tox screen -Neurology evaluation appreciated, will order MRI as recommended -Every 4 neurochecks -Plavix 10 mg given, will do 75 mg daily.?? Reported allergy to aspirin this will need to be further clarified tomorrow. -Checking lipid panel and A1c -PMNR consult, bedside speech/swallow eval -Permissive hypertension, fold in propanolol as able. ?? Hypertension, on propanolol, hold in the setting of concern for stroke for permissive hypertension. ?? Nicotine abuse, counselled against use. ?? Anxiety/depression, continue hydroxyzine 50 mg 3 times as needed, buspirone 30 mg 2 times a day, escitalopram 20 mg daily, mirtazapine 40 mg daily at bedtime, quetiapine 50 mg 2 times a day ?? GERD, used to be on omeprazole but not taking it now.?? Hold for now ?? DVT prophylaxis with heparin ?? Full code, confirmed with patient ? Histories Allergies Allergies ?(Active and Proposed Allergies Only) Motrin? (Severity: Unknown severity, Onset: Unknown) ?Reactions: GI s/s aspirin? (Severity: Unknown severity, Onset: Unknown) ?Reactions: GI s/s ? 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 Past Surgical History Cholecystectomy Laproscopic: 08/15/14 bilateral ovariectomy and partial hysterectomy ??in July 1999 colonoscopy 2010 , poor prep hernia repair , July 2011 LEEP January 2012 ? Social History Tobacco Details:??Current every day smoker Details:??Use: Current every day smoker. ? Family History Other: CAD - Coronary artery disease; Diabetes mellitus type II; Hyperlipidemia; Hypertension ? Medications Home Medications BusPIRone (busPIRone 30 mg oral tablet)?1?tab(s)?30?Milligram?By Mouth?2 times a day Escitalopram (escitalopram 20 mg oral tablet)?1?tab(s)?20?Milligram?By Mouth?Daily HydrOXYzine (hydrOXYzine hydrochloride 50 mg oral tablet)?1?tab(s)?50?Milligram?By Mouth?3 times a day?as needed?for anxiety Mirtazapine (mirtazapine 45 mg oral tablet)?1?tab(s)?45?Milligram?By Mouth?Daily at bedtime Propranolol (propranolol 10 mg oral tablet)?10?Milligram?1?tablet?By Mouth?2 times a day Quetiapine (QUEtiapine 50 mg oral tablet)?1?tab(s)?50?Milligram?By Mouth?2 times a day ? Inpatient Medications Medications (14) Active SCHEDULED: (5) BusPIRone 10 mg Tablet (busPIRone 10 mg oral tablet) ??30 mg, By Mouth, 2 times a day Escitalopram 10 mg Tablet (escitalopram 10 mg oral tablet) ??20 mg, By Mouth, Daily Mirtazapine 15 mg Tablet (mirtazapine 15 mg oral tablet) ??45 mg, By Mouth, Daily at bedtime NaCl 0.9% Flush 3ml (NaCL 0.9% Flush) ??3 mL, IV Push, Every 8 hours Quetiapine 25 mg Tablet (QUEtiapine 25 mg oral tablet) ??50 mg, By Mouth, 2 times a day CONTINUOUS: (0) PRN: (9) Acetaminophen 325 mg Tablet (Acetaminophen Tablet) ??650 mg, By Mouth, Every 4 hours Dextromethorphan-Guaifenesin 20 mg-200 mg/10 mL Liqu UD (Robitussin DM Liquid) ??10 mL, By Mouth, Every 4 hours Docusate Sodium 100 mg Capsule (Docusate Sodium Capsule) ??100 mg 1 capsule, By Mouth, 2 times a day HydrOXYzine Pamoate 25mg Capsule (hydrOXYzine pamoate 25 mg oral capsule) ??50 mg, By Mouth, 3 times a day Melatonin 3 mg Tablet (Melatonin Tablet) ??3 mg, By Mouth, Daily at bedtime NaCl 0.9% Flush 3ml (NaCL 0.9% Flush) ??3 mL, IV Push, Every 8 hours Polyethylene Glycol 17 Gm Powder (MiraLax Powder) ??17 Gm 1 pack/packet, By Mouth, Daily Senna Tablet ??8.6 mg 1 tablet, By Mouth, 2 times a day Simethicone 80 mg Chewable Tablet (Simethicone Tablet) ??80 mg, Chew, 3 times a day ? Results Recent Labs BLOOD BANK Blood Type B Positive ()?? 03/30/2023 14:02 Antibody Screen Negative ()?? 03/30/2023 14:02 ?? BLOOD COUNT & DIFF WBC 12.4 k/mm3 (High)?? 03/30/2023 14:52 RBC 5.47 m/mm3 (High)?? 03/30/2023 14:52 Hgb 14.5 Gm/dL ()?? 03/30/2023 14:52 Hct 43.8 % ()?? 03/30/2023 14:52 MCV 80.1 femtoliters ()?? 03/30/2023 14:52 MCH 26.5 pg (Low)?? 03/30/2023 14:52 MCHC 33.1 g/dL ()?? 03/30/2023 14:52 Platelet Count 381 k/mm3 ()?? 03/30/2023 14:52 RDW-SD 40.3 femtoliters ()?? 03/30/2023 14:52 MPV 8.7 femtoliters (Low)?? 03/30/2023 14:52 Nucleated RBC (Automated) 0.0 #/100 WBC'S ()?? 03/30/2023 14:52 Abs. NRBC 0.0 k/mm3 ()?? 03/30/2023 14:52 Abs. Neut 9.0 k/mm3 (High)?? 03/30/2023 14:52 Abs. Lymph 2.6 k/mm3 ()?? 03/30/2023 14:52 Abs. [place] 0.7 k/mm3 ()?? 03/30/2023 14:52 Abs. Eo 0.0 k/mm3 ()?? 03/30/2023 14:52 Abs. Baso 0.1 k/mm3 ()?? 03/30/2023 14:52 Neut % 72.3 % ()?? 03/30/2023 14:52 Lymph % 21.2 % ()?? 03/30/2023 14:52 [place] % 5.4 % ()?? 03/30/2023 14:52 Eos % 0.2 % ()?? 03/30/2023 14:52 Baso % 0.4 % ()?? 03/30/2023 14:52 Imm Gran 0.5 % ()?? 03/30/2023 14:52 Abs. Imm Gran 0.1 k/mm3 ()?? 03/30/2023 14:52 ?? CARDIAC High Sensitivity Troponin (HSTnT) <6 ng/L ()?? 03/30/2023 14:52 ?? CHEM GENERAL Sodium 136 mmol/L ()?? 03/30/2023 14:52 Potassium 4.3 mmol/L ()?? 03/30/2023 14:52 Chloride 103 mmol/L ()?? 03/30/2023 14:52 Bicarbonate Level 21 mmol/L (Low)?? 03/30/2023 14:52 Anion Gap 12 ()?? 03/30/2023 14:52 Glucose Level 126 mg/dL (High)?? 03/30/2023 14:52 Hemoglobin A1C (Monitoring) 6.2 % (High)?? 03/30/2023 14:52 BUN 19 mg/dL ()?? 03/30/2023 14:52 Creatinine-Blood 0.8 mg/dL ()?? 03/30/2023 14:52 Estimated GFR Creatinine 86 ML/MIN/1.73 M2 ()?? 03/30/2023 14:52 Calcium 9.5 mg/dL ()?? 03/30/2023 14:52 AST (SGOT) 11 units/L ()?? 03/30/2023 14:52 ?? COAG INR 1.0 ()?? 03/30/2023 14:52 Protime (PT) 10.2 seconds ()?? 03/30/2023 14:52 APTT 29.3 seconds ()?? 03/30/2023 14:52 ?? LIPID STUDIES Cholesterol 229 mg/dL (High)?? 03/30/2023 14:52 Triglycerides 165 mg/dL (High)?? 03/30/2023 14:52 HDL Cholesterol 59 mg/dL ()?? 03/30/2023 14:52 LDL Cholesterol 137 mg/dL (High)?? 03/30/2023 14:52 Non HDL Cholesterol 170 mg/dL (High)?? 03/30/2023 14:52 ? [facility] * Event Display: Echocardiogram - Complete Authored Date: [id number] Transthoracic Echocardiography Report (TTE) Patient Demographics Patient Name ADOLPH REDDY Date of Study 03/31/2023 Corporate Gender Female Facility Race Ethnicity Date of 1960 Height: 62.2 inches Age 62 year(s) Weight: 174.17 pounds Accession Number [id number] BSA: 1.81 m2 Room Number [id number] BMI: 31.65 kg/m2 Referring Physician Claribel Alcazar MD Interpreting Missy Chisholm MD Physician Hand Glove Cleaner Angelica Freed CVA. Clinical History Obesity. Study Data Type of Study TTE procedure:Echo Complete-Doppler, Colorflow, M-Mode. Procedure Information:Saline (bubble study) was administered by Mitchel. Study Date03/31/2023 Start Time: 02:53 PM Study Location: [facility] [place] Adult Echo Study Status: Echo lab Patient Status: Routine Technical Quality: Technically difficult due to restricted mobility. Blood Pressure:149/101 mmHg EKG: Normal sinus rhythm HR: 90 bpm Contrast Medium: Bubble Study. Amount - 50 ml 2D Measurements LV Diastolic Dimension: 4.1 cm LV Systolic Dimension: 3.5 cm LV Septum Diastolic: 0.6 cm LV PW Diastolic: 0.7 cm AO Root Dimension: 2.5 cm LA ESV (BP):13.7 ml LVOT Stroke Volume: 48.98 ml LA ESV Index: 8 ml/m2 Stroke Volume Index27.06 ml/m2 LVOT: 2 cm Cardiac Index:2.44 l/min/m2 Ascending Aorta:2.6 cm Doppler Measurements AV Peak Velocity: 150 cm/s MV Peak E-Wave: 49.7 cm/s AV Peak Gradient: 9 mmHg MV Peak A-Wave: 76.3 cm/s MV E/A Ratio: 0.65 LVOT Peak Velocity: 88.3 cm/s LVOT VTI15.6 cm MV Deceleration Time: 204 msec TR Velocity:238 cm/s TR Gradient:22.66 mmHg PV Peak Velocity: 83.4 cm/s E' Septal Velocity: 4.24 cm/s PV Peak Gradient: 2.78 mmHg E' Lateral Velocity: 11.1 cm/s E/Med E':11.7217 E/Lat E':[id number] Cardiac Anatomy Left Ventricle/Interventricular Septum The left ventricular size is normal. Left ventricular wall thickness is normal to near normal. Suboptimal endocardial definition in apical images limits evaluation. The left ventricular ejection fraction is 60-65%. No obvious wall motion abnormalities seen on limited views. Normal diastolic function. Left Atrium/Interatrial Septum The left atrium is normal in size. An agitated saline study (bubble study) was performed and was normal at rest and with Valsalva. There is no evidence of right to left shunting. Aortic Valve The aortic valve is poorly visualized. There is no aortic stenosis. There is trivial aortic regurgitation. Mitral Valve The mitral valve appears grossly normal. There is trace mitral regurgitation. Aorta The ascending aorta and aortic root are normal in size. Right Ventricle The right ventricle is normal in size. Right ventricular systolic function is mildly reduced. Right Atrium The right atrium is normal in size. Pulmonic Valve The pulmonic valve velocity is normal. Tricuspid Valve The tricuspid valve is grossly normal. There is trace tricuspid valve regurgitation. Pumonary Artery The pulmonary artery systolic pressure estimation is within normal limits. Venous Structures The inferior vena cava appears grossly normal. Pericardium/Extracardiac There is no significant pericardial effusion. Summary The left ventricular size is normal. Left ventricular wall thickness is normal to near normal. Suboptimal endocardial definition in apical images limits evaluation. The left ventricular ejection fraction is 60-65%. No obvious wall motion abnormalities seen on limited views. Normal diastolic function. The left atrium is normal in size. An agitated saline study (bubble study) was performed and was normal at rest and with Valsalva. There is no evidence of right to left shunting. The aortic valve is poorly visualized. There is no aortic stenosis. There is trivial aortic regurgitation. The right ventricle is normal in size. Right ventricular systolic function is mildly reduced. There is no significant pericardial effusion. Comparison No prior study available for comparison. Signature * Event Display: Echocardiogram - Complete Authored Date: [facility] Progress note * Yesi KHAN, Rae Ha: PERFORM, MODIFY, MODIFY, MODIFY, MODIFY Event Display: [facility] Authored Date: Patient: ??ADOLPH REDDY ? Age:??62 Years?Sex:??Female?:??1960?? Chief Complaint/Reason for Consultation Left sided weakness, facial droop, and slurred speech x3 days History of Present Illness Interval HPI: Overnight without acute events. Patient offers no new complaints. Continues with left-sided weakness. ECHO with LVEF: 60-65%. Left atrium normal. No shunting on bubble study. ?? Review of Systems Constitutional: Denies fever/chills. HEENT: Denies dizziness. Denies headache. Denies recent loss or change in vision. Cardiovascular: Denies chest pain and/or palpitations. Denies shortness of breath.?? Respiratory: Denies SOB/dyspnea. ?? GI: Denies N/V/D. Denies abdominal discomfort. : Denies dysuria, or nocturia. Denies any other urinary symptoms. Neuro: Denies dizziness. Denies headache. Denies recent loss or change in vision. Denies paresthesia. Reports improved left-sided weakness Musculoskeletal: Denies musculoskeletal pain. ? Objective Vital Signs?? Temperature: 98.5 DegF (04/01/23 06:10:00) Temperature Route: Oral (04/01/23 06:10:00) Pulse Rate:??117 bpm??High (04/01/23 09:16:00) Respiratory Rate: 18 br/min (04/01/23 09:16:00) Systolic Blood Pressure: 136 mm Hg (04/01/23 09:16:00) Diastolic Blood Pressure:??113 mm Hg??High (04/01/23 09:16:00) Blood pressure sites: Arm, right (03/31/23 13:43:00) Mean Arterial Pressure: 119 mm Hg (03/31/23 17:15:00) Pulse Pressure: 50 mm Hg (04/01/23 06:10:00) Oxygen Saturation: 96 % (04/01/23 06:10:00) Mode of Delivery (Oxygen): Room air (04/01/23 06:10:00) Early Warning Score: 2 (04/01/23 09:41:42) ? Candido Coma Scale Candido Coma Score: 15 (04/01/23 09:16:00) Motor Response-Adult: Obeys commands (04/01/23 09:16:00) Response Eye Opening: Spontaneously (04/01/23 09:16:00) Verbal Response-Adult: Oriented and converses (04/01/23 09:16:00) ? Physical Exam General:?62-year-old female, who appears stated age. Calm and cooperative. Responds appropriately to questioning. Speech slurred Integ: Skin is warm, dry and intact. No diaphoresis.?? HEENT: Eyes symmetrical. Pupils 2mm, equally round, regular, and responsive to light. Extraocular eye movements intact. No nystagmus. Hearing grossly intact.?? Respiratory: Respirations even and unlabored. GI: Abd soft, and nondistended. Extremities: warm and perfused. Neurological: Mental status: A&O x3. Answers questions appropriately and follows commands. Cranial Nerves: II: Pupils 2mm equally round, regular and reactive to light III, IV, : EOM intact, no gaze preference or deviation. No nystagmus. VFF V: Facial sensation intact to light touch in V1, V2, and V3 segments. VII: left facial droop VIII: Normal hearing to speech IX, X:??Normal palatal elevation, no uvular deviation. XI: Shoulder shrug intact bilaterally XII: Leftward tongue protrusion Motor: Musculoskeletal development appropriate for age and gender. left-sided weakness?? Strength Stockroom Selector: L: 4-/5 ? R: 5/5 Deltoids: L: 4-/5??with pronator drift?? R:5/5 Biceps: ?? L: 4/5 ? R:5/5 Triceps: ?? L: 5/5 ? R:5/5 Knee extension: L: 4-/5 ? R: 4+/5 Sensory: Sensation intact to light touch in all limbs. No hemineglect, no extinction to double sided stimulation Coordination:?? No clear dysmetria on finger to nose on right. Unable to complete on left. Gait: Deferred. ?? Assessment/Plan 62-year-old female with??PMH significant for Mullerian mucinous tumor, chronic abdominal pain, tobacco and cannabis smoker, depression, panic disorder and substance abuse (opioid and benzos, has beendischarged from multiple PCP offices due to??prescription abuse) who presented to the ED on 03/30??for evaluation of??Left sided weakness x 3 days. LKW 03/27. Patient noted to have Left facial, droop, in addition to slurred speech and??LUE/LLE weakness.??Initial NIHSS 4.??CT Head nonacute. Chronic Right BG infarct noted. CTA Head/Neck without LVO or high grade stenosis. MRI brain with acute/subacute right corpus striatal infarct. Chronic left thalmocapsular lacunar infarct noted. Patient loadedwith Plavix. ECHO with LVEF: 60-65%. Left atrium normal. No shunting on bubble study. Today,??continues with left facial droop, slurred speech, and Left-sided weakness (slightly improved). ? DDx: Acute/subacute right corpus striatal infarct - Rule out cardioembolic etiology ? Recommendations: - Continue Plavix 75 mg daily (Ideally, prefer DAPT, but patient states she is allergic to ASA as it makes her stomach hurt) -??Continue??statin therapy for LDL goal <70 - Cardioembolic work up ? - Follow up hypercoag labs ? - XioPatch on discharge - requested - Continue neuro checks, VS, and telemetry per unit protocol - STAT CT Head for any acute changes - PM&R consult - Control vascular risks: A1C <7.0. Statin therapy for LDL >70 or >100 with only one vascular??risk. television production assistant BP control - Outpatient follow up with [facility] for incidental Right ICA aneurysm - requested - Outpatient Neurology follow up with Dr. Jessica Mendoza - appointment requested ? Thank you. Neurology will sign off at this time. ?? d/w Dr. 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 Past Surgical History Cholecystectomy Laproscopic: 08/15/14 bilateral ovariectomy and partial hysterectomy ??in July 1999 colonoscopy 2010 , poor prep hernia repair , July 2011 LEEP January 2012 ? Social History Tobacco Details:??Use: 5-9 cigarettes (between 1/4 to 1/2 pack)/day in last 30 days. ??Interested in cessation: Yes. ??Yes, Other: 40+ years smoking. ??Has decreased to a half a pack or less for the last fewmonths.. Details:??Current every day smoker Details:??Use: Current every day smoker. ? Stroke Treatment Details Able to close lips, pucker and blow out: No Patient alert: Yes Voluntary Cough: Yes ?? Medications Home Medications BusPIRone (busPIRone 30 mg oral tablet)?1?tab(s)?30?Milligram?By Mouth?2 times a day Escitalopram (escitalopram 20 mg oral tablet)?1?tab(s)?20?Milligram?By Mouth?Daily HydrOXYzine (hydrOXYzine hydrochloride 50 mg oral tablet)?1?tab(s)?50?Milligram?By Mouth?3 times a day?as needed?for anxiety Mirtazapine (mirtazapine 45 mg oral tablet)?1?tab(s)?45?Milligram?By Mouth?Daily at bedtime Propranolol (propranolol 10 mg oral tablet)?10?Milligram?1?tablet?By Mouth?2 times a day Quetiapine (QUEtiapine 50 mg oral tablet)?1?tab(s)?50?Milligram?By Mouth?2 times a day ? Inpatient Medications Medications (25) Active SCHEDULED: (11) Atorvastatin 40 mg Tablet (Lipitor 40 mg oral tablet) ??40 mg, By Mouth, Daily at bedtime BusPIRone 10 mg Tablet (busPIRone 10 mg oral tablet) ??30 mg, By Mouth, 2 times a day Clopidogrel 75 mg Tablet (Plavix 75 mg oral tablet) ??75 mg, By Mouth, Daily Escitalopram 10 mg Tablet (escitalopram 10 mg oral tablet) ??20 mg, By Mouth, Daily Heparin 5000 units/mL Inj (1 mL) (Heparin Inj) ??5,000 units 1 mL, Subcutaneous Injection, 3 times a day Mirtazapine 15 mg Tablet (mirtazapine 15 mg oral tablet) ??45 mg, By Mouth, Daily at bedtime NaCl 0.9% Flush 3ml (NaCL 0.9% Flush) ??3 mL, IV Push, Every 8 hours Nicotine 21 mg / 24 hour Patch (Nicotine Topical) ??21 mg, Topically, Daily Propranolol 10 mg Tablet (propranolol 10 mg oral tablet) ??10 mg, By Mouth, 2 times a day Quetiapine 25 mg Tablet (QUEtiapine 25 mg oral tablet) ??50 mg, By Mouth, 2 times a day Remove Patch (Remove ??Patch) ??1 each, Topically, Daily CONTINUOUS: (0) PRN: (14) Acetaminophen 325 mg Tablet (Acetaminophen Tablet) ??650 mg, By Mouth, Every 4 hours Dextromethorphan-Guaifenesin 20 mg-200 mg/10 mL Liqu UD (Robitussin DM Liquid) ??10 mL, By Mouth, Every 4 hours Dextrose Inj Syringe (Dextrose 50% Inj Syringe (25Gm)) ??12.5 Gm, IV Push Slowly, Every 20 minutes Dextrose Inj Syringe (Dextrose 50% Inj Syringe (25Gm)) ??25 Gm, IV Push Slowly, Every 15 minutes Docusate Sodium 100 mg Capsule (Docusate Sodium Capsule) ??100 mg 1 capsule, By Mouth, 2 times a day Glucagon 1 mg Inj (Glucagon Inj) ??1 mg, Intramuscular, Once Glucose 40% Gel (15 Gm) (Glucose Gel) ??15 Gm, By Mouth, Every 20 minutes Glucose 40% Gel (15 Gm) (Glucose Gel) ??30 Gm, By Mouth, Every 20 minutes HydrOXYzine Pamoate 25mg Capsule (hydrOXYzine pamoate 25 mg oral capsule) ??50 mg, By Mouth, 3 times a day Melatonin 3 mg Tablet (Melatonin Tablet) ??3 mg, By Mouth, Daily at bedtime NaCl 0.9% Flush 3ml (NaCL 0.9% Flush) ??3 mL, IV Push, Every 8 hours Polyethylene Glycol 17 Gm Powder (MiraLax Powder) ??17 Gm 1 pack/packet, By Mouth, Daily Senna Tablet ??8.6 mg 1 tablet, By Mouth, 2 times a day Simethicone 80 mg Chewable Tablet (Simethicone Tablet) ??80 mg, Chew, 3 times a day ? Results Recent Labs BLOOD BANK Blood Type B Positive ()?? 03/31/2023 01:19 Antibody Screen Negative ()?? 03/31/2023 01:19 ?? BLOOD COUNT & DIFF WBC 9.8 k/mm3 ()?? 03/31/2023 05:23 RBC 5.24 m/mm3 ()?? 03/31/2023 05:23 Hgb 14.2 Gm/dL ()?? 03/31/2023 05:23 Hct 42.3 % ()?? 03/31/2023 05:23 MCV 80.7 femtoliters ()?? 03/31/2023 05:23 MCH 27.1 pg ()?? 03/31/2023 05:23 MCHC 33.6 g/dL ()?? 03/31/2023 05:23 Platelet Count 364 k/mm3 ()?? 03/31/2023 05:23 RDW-SD 40.6 femtoliters ()?? 03/31/2023 05:23 MPV 8.6 femtoliters (Low)?? 03/31/2023 05:23 Nucleated RBC (Automated) 0.0 #/100 WBC'S ()?? 03/31/2023 05:23 Abs. NRBC 0.0 k/mm3 ()?? 03/31/2023 05:23 ?? CHEM GENERAL Sodium 139 mmol/L ()?? 03/31/2023 05:23 Potassium 3.7 mmol/L ()?? 03/31/2023 05:23 Chloride 104 mmol/L ()?? 03/31/2023 05:23 Bicarbonate Level 22 mmol/L ()?? 03/31/2023 05:23 Anion Gap 13 ()?? 03/31/2023 05:23 Glucose Level 127 mg/dL (High)?? 03/31/2023 05:23 Glucose, POC 124 mg/dL (High)?? 03/31/2023 23:08 BUN 20 mg/dL ()?? 03/31/2023 05:23 Creatinine-Blood 0.9 mg/dL ()?? 03/31/2023 05:23 Estimated GFR Creatinine 75 ML/MIN/1.73 M2 ()?? 03/31/2023 05:23 Calcium 9.3 mg/dL ()?? 03/31/2023 05:23 ? Abnormal Labs ?? CHEM GENERAL ??Glucose, POC ??124 mg/dL (High) ??03/31/2023 23:08 ? Note: Critical results are displayed in red. ? * Inge Sanford MD: PERFORM Event Display: Progress Note Hospital Authored Date: Patient: ??ADOLPH REDDY ? Age:??62 Years?Sex:??Female?:??1960?? Subjective Patient was seen and examined in a.m.??in the ER Daughter at bedside Feels like??weakness??and speech improving MRI reported for acute stroke Neurology recommended echo with bubble study.?? LDL is high started on??Lipitor Physical medicine rehab saw her.?? Started on dental soft diet.?? Recommended will need rehab,??waiting PT/OT evaluation Review of Systems As above Objective Vital Signs?? Temperature: 98.1 DegF (03/30/23 20:05:00) Temperature Route: Oral (03/30/23 20:05:00) Pulse Rate:??100 bpm??High (03/31/23 09:09:00) Respiratory Rate: 20 br/min (03/31/23 09:09:00) Systolic Blood Pressure:??149 mm Hg??High (03/31/23 09:09:00) Diastolic Blood Pressure:??101 mm Hg??High (03/31/23 09:09:00) Blood pressure sites: Arm, right (03/31/23 09:09:00) Mean Arterial Pressure: 117 mm Hg (03/31/23 09:09:00) Pulse Pressure: 48 mm Hg (03/31/23 09:09:00) Oxygen Saturation: 95 % (03/31/23 09:09:00) Mode of Delivery (Oxygen): Room air (03/31/23 09:09:00) Early Warning Score: 2 (03/31/23 09:09:46) ? Intake/Output? No Data Available ? Physical Exam Constitutional: Alert, in no acute distress. Respiratory: Clear to auscultation. No wheezing or crackles. No use of accessory muscles. Cardiovascular: S1S2 regular. No murmurs, rubs or gallops. Gastrointestinal: Abdomen soft, non-tender, non-distended. Normal bowel sounds.. Extremities: No lower extremity pitting??edema. No cyanosis or clubbing. Neurologic: AAOx3,??Dysarthria and facial droop +,??left-sided??upper and lower extremity weakness Results Recent Labs BLOOD BANK Blood Type B Positive ()?? 03/31/2023 01:19 Antibody Screen Negative ()?? 03/31/2023 01:19 ?? BLOOD COUNT & DIFF WBC 9.8 k/mm3 ()?? 03/31/2023 05:23 RBC 5.24 m/mm3 ()?? 03/31/2023 05:23 Hgb 14.2 Gm/dL ()?? 03/31/2023 05:23 Hct 42.3 % ()?? 03/31/2023 05:23 MCV 80.7 femtoliters ()?? 03/31/2023 05:23 MCH 27.1 pg ()?? 03/31/2023 05:23 MCHC 33.6 g/dL ()?? 03/31/2023 05:23 Platelet Count 364 k/mm3 ()?? 03/31/2023 05:23 RDW-SD 40.6 femtoliters ()?? 03/31/2023 05:23 MPV 8.6 femtoliters (Low)?? 03/31/2023 05:23 Nucleated RBC (Automated) 0.0 #/100 WBC'S ()?? 03/31/2023 05:23 Abs. NRBC 0.0 k/mm3 ()?? 03/31/2023 05:23 Abs. Neut 9.0 k/mm3 (High)?? 03/30/2023 14:52 Abs. Lymph 2.6 k/mm3 ()?? 03/30/2023 14:52 Abs. [place] 0.7 k/mm3 ()?? 03/30/2023 14:52 Abs. Eo 0.0 k/mm3 ()?? 03/30/2023 14:52 Abs. Baso 0.1 k/mm3 ()?? 03/30/2023 14:52 Neut % 72.3 % ()?? 03/30/2023 14:52 Lymph % 21.2 % ()?? 03/30/2023 14:52 [place] % 5.4 % ()?? 03/30/2023 14:52 Eos % 0.2 % ()?? 03/30/2023 14:52 Baso % 0.4 % ()?? 03/30/2023 14:52 Imm Gran 0.5 % ()?? 03/30/2023 14:52 Abs. Imm Gran 0.1 k/mm3 ()?? 03/30/2023 14:52 ?? CARDIAC High Sensitivity Troponin (HSTnT) <6 ng/L ()?? 03/30/2023 14:52 ?? CHEM GENERAL Sodium 139 mmol/L ()?? 03/31/2023 05:23 Potassium 3.7 mmol/L ()?? 03/31/2023 05:23 Chloride 104 mmol/L ()?? 03/31/2023 05:23 Bicarbonate Level 22 mmol/L ()?? 03/31/2023 05:23 Anion Gap 13 ()?? 03/31/2023 05:23 Glucose Level 127 mg/dL (High)?? 03/31/2023 05:23 Hemoglobin A1C (Monitoring) 6.2 % (High)?? 03/30/2023 14:52 BUN 20 mg/dL ()?? 03/31/2023 05:23 Creatinine-Blood 0.9 mg/dL ()?? 03/31/2023 05:23 Estimated GFR Creatinine 75 ML/MIN/1.73 M2 ()?? 03/31/2023 05:23 Calcium 9.3 mg/dL ()?? 03/31/2023 05:23 AST (SGOT) 11 units/L ()?? 03/30/2023 14:52 ?? COAG INR 1.0 ()?? 03/30/2023 14:52 Protime (PT) 10.2 seconds ()?? 03/30/2023 14:52 APTT 29.3 seconds ()?? 03/30/2023 14:52 ?? LIPID STUDIES Cholesterol 229 mg/dL (High)?? 03/30/2023 14:52 Triglycerides 165 mg/dL (High)?? 03/30/2023 14:52 HDL Cholesterol 59 mg/dL ()?? 03/30/2023 14:52 LDL Cholesterol 137 mg/dL (High)?? 03/30/2023 14:52 Non HDL Cholesterol 170 mg/dL (High)?? 03/30/2023 14:52 ? Assessment/Plan ??Patient is a 62-year-old female with past medical history of hypertension, tobacco and cannabis smoker, anxiety/depression, history of panic attack, history of substance abuse noted in neurology note from today, presented to ED with left-sided weakness of 3 days.? Acute stroke Left hemiparesis -CT head/CTA with suspected subacute right corpus stratum infarct, 2 mm right supraclinoid ICA aneurysm, no proximal occlusion or high-grade stenosis of major arteries of head and neck. -Left-sided weakness improving per patient.?? Able to move left lower extremity now, continues to have facial droop -Denies any symptoms concerning for infection, chest x-ray negative.?? No dysuria, urgency or frequency.?? She does have mild leukocytosis of 12.4.?? Trend white cell count and temperature curve. ??Check UA and tox screen -Neurology evaluation appreciated, will order MRI as recommended -Every 4 neurochecks -Plavix 75 mg daily.?? Reported allergy to aspirin -Checking lipid panel and A1c.?? A1c 6.2. ??Discussed with??patient.?? LDL high. ??Started on Lipitor discussed with patient -PMNR consult, bedside speech/swallow eval -Permissive hypertension, hold in propranolol ?? 03/31 MRI reported for acute stroke Neurology recommended echo with bubble study.?? LDL is high started on??Lipitor Physical medicine rehab saw her.?? Started on dental soft diet.?? Recommended will need rehab,??waiting PT/OT evaluation ?? Hypertension, on propanolol, hold in the setting of concern for stroke for permissive hypertension. ?? Nicotine abuse, counselled against use. ?? Anxiety/depression, continue hydroxyzine 50 mg 3 times as needed, buspirone 30 mg 2 times a day, escitalopram 20 mg daily, mirtazapine 40 mg daily at bedtime, quetiapine 50 mg 2 times a day ?? GERD, used to be on omeprazole but not taking it now.?? Hold for now ?? DVT prophylaxis with heparin ?? Full code, confirmed with patient ?? * Yesi KHAN, Rae Ha: PERFORM, MODIFY, MODIFY, MODIFY, MODIFY, MODIFY, MODIFY Event Display: Progress Note Hospital Authored Date: Patient: ??ADOLPH REDDY ? Age:??62 Years?Sex:??Female?:??1960?? Chief Complaint/Reason for Consultation Left sided weakness, facial droop, and slurred speech x3 days History of Present Illness Interval HPI: Overnight without acute events. Patient reports improved??left- sided weakness. MRI brain with acute/subacute right corpus striatal infarct. Chronic left thalmocapsular lacunar infarct noted. ?? Review of Systems Constitutional: Denies fever/chills. HEENT: Denies dizziness. Denies headache. Denies recent loss or change in vision. Cardiovascular: Denies chest pain and/or palpitations. Denies shortness of breath.?? Respiratory: Denies SOB/dyspnea. ?? GI: Denies N/V/D. Denies abdominal discomfort. : Denies dysuria, or nocturia. Denies any other urinary symptoms. Neuro: Denies dizziness. Denies headache. Denies recent loss or change in vision. Denies paresthesia. Reports improved left-sided weakness Musculoskeletal: Denies musculoskeletal pain. ? Objective Vital Signs?? Temperature: 98.1 DegF (03/30/23 20:05:00) Temperature Route: Oral (03/30/23 20:05:00) Pulse Rate:??100 bpm??High (03/31/23 09:09:00) Respiratory Rate: 20 br/min (03/31/23 09:09:00) Systolic Blood Pressure:??149 mm Hg??High (03/31/23 09:09:00) Diastolic Blood Pressure:??101 mm Hg??High (03/31/23 09:09:00) Blood pressure sites: Arm, right (03/31/23 09:09:00) Mean Arterial Pressure: 117 mm Hg (03/31/23 09:09:00) Pulse Pressure: 48 mm Hg (03/31/23 09:09:00) Oxygen Saturation: 95 % (03/31/23 09:09:00) Mode of Delivery (Oxygen): Room air (03/31/23 09:09:00) Early Warning Score: 2 (03/31/23 09:09:46) ? Keene Coma Scale Candido Coma Score: 15 (03/30/23 19:00:00) Motor Response-Adult: Obeys commands (03/30/23 19:00:00) Response Eye Opening: Spontaneously (03/30/23 19:00:00) Verbal Response-Adult: Oriented and converses (03/30/23 19:00:00) ? Physical Exam General:?62-year-old female, who appears stated age. Calm and cooperative. Responds appropriately to questioning. Speech slurred Integ: Skin is warm, dry and intact. No diaphoresis.?? HEENT: Eyes symmetrical. Pupils 2mm, equally round, regular, and responsive to light. Extraocular eye movements intact. No nystagmus. Hearing grossly intact.?? Respiratory: Respirations even and unlabored. GI: Abd soft, and nondistended. Extremities: warm and perfused. Neurological: Mental status: A&O x3. Answers questions appropriately and follows commands. Cranial Nerves: II: Pupils 2mm equally round, regular and reactive to light III, IV, : EOM intact, no gaze preference or deviation. No nystagmus. VFF V: Facial sensation intact to light touch in V1, V2, and V3 segments. VII: left facial droop VIII: Normal hearing to speech IX, X:??Normal palatal elevation, no uvular deviation. XI: Shoulder shrug intact bilaterally XII: Leftward tongue protrusion Motor: Musculoskeletal development appropriate for age and gender. left-sided weakness?? Strength Stockroom Selector: L: 4-/5 ? R: 5/5 Deltoids: L: 4-/5??with pronator drift?? R:5/5 Biceps: ?? L: 4/5 ? R:5/5 Triceps: ?? L: 5/5 ? R:5/5 Knee extension: L: 4-/5 ? R: 4/5 Sensory: Sensation intact to light touch in all limbs. No hemineglect, no extinction to double sided stimulation Coordination:?? Finger to nose slowed on left. No clear dysmetria. Gait: Deferred. ? Assessment/Plan 62-year-old female with??PMH significant for Mullerian mucinous tumor, chronic abdominal pain, tobacco and cannabis smoker, depression, panic disorder and substance abuse (opioid and benzos, has beendischarged from multiple PCP offices due to??prescription abuse) who presented to the ED on 03/30??for evaluation of??Left sided weakness x 3 days. LKW 03/27. Patient noted to have Left facial, droop, in addition to slurred speech and??LUE/LLE weakness.??Initial NIHSS 4.??CT Head nonacute. Chronic Right BG infarct noted. CTA Head/Neck without LVO or high grade stenosis. MRI brain with acute/subacute right corpus striatal infarct. Chronic left thalmocapsular lacunar infarct noted. Patient loadedwith Plavix. Today,??continues with left facial droop, slurred speech, and Left-sided weakness (slightly improved). ? DDx: Acute/subacute right corpus striatal infarct - Rule out cardioembolic etiology ? Recommendations: - Continue Plavix 75 mg daily (Ideally, prefer DAPT, but patient states she is allergic to ASA as it makes her stomach hurt) - Initiate statin therapy for LDL goal <70 - Cardioembolic work up ?- Obtain ECHO with bubble ? - Hypercoag labs - ordered - Continue neuro checks, VS, and telemetry per unit protocol - STAT CT Head for any acute changes - PM&R consult - Control vascular risks: A1C <7.0. Statin therapy for LDL >70 or >100 with only one vascular??risk. prison BP control - Outpatient follow up with [facility] for incidental Right ICA aneurysm - requested ? Thank you. Neurology will follow. Please call with any questions/concerns ?? d/w Dr. Escudero d/w Inge Pena ? 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 Past Surgical History Cholecystectomy Laproscopic: 08/15/14 bilateral ovariectomy and partial hysterectomy ??in July 1999 colonoscopy 2010 , poor prep hernia repair , July 2011 LEEP January 2012 ? Social History Tobacco Details:??Current every day smoker Details:??Use: Current every day smoker. ? Stroke Treatment Details Able to close lips, pucker and blow out: No Patient alert: Yes Voluntary Cough: Yes ?? Medications Home Medications BusPIRone (busPIRone 30 mg oral tablet)?1?tab(s)?30?Milligram?By Mouth?2 times a day Escitalopram (escitalopram 20 mg oral tablet)?1?tab(s)?20?Milligram?By Mouth?Daily HydrOXYzine (hydrOXYzine hydrochloride 50 mg oral tablet)?1?tab(s)?50?Milligram?By Mouth?3 times a day?as needed?for anxiety Mirtazapine (mirtazapine 45 mg oral tablet)?1?tab(s)?45?Milligram?By Mouth?Daily at bedtime Propranolol (propranolol 10 mg oral tablet)?10?Milligram?1?tablet?By Mouth?2 times a day Quetiapine (QUEtiapine 50 mg oral tablet)?1?tab(s)?50?Milligram?By Mouth?2 times a day ? Inpatient Medications Medications (22) Active SCHEDULED: (8) Atorvastatin 40 mg Tablet (Lipitor 40 mg oral tablet) ??40 mg, By Mouth, Daily at bedtime BusPIRone 10 mg Tablet (busPIRone 10 mg oral tablet) ??30 mg, By Mouth, 2 times a day Clopidogrel 75 mg Tablet (Plavix 75 mg oral tablet) ??75 mg, By Mouth, Daily Escitalopram 10 mg Tablet (escitalopram 10 mg oral tablet) ??20 mg, By Mouth, Daily Heparin 5000 units/mL Inj (1 mL) (Heparin Inj) ??5,000 units 1 mL, Subcutaneous Injection, 3 times a day Mirtazapine 15 mg Tablet (mirtazapine 15 mg oral tablet) ??45 mg, By Mouth, Daily at bedtime NaCl 0.9% Flush 3ml (NaCL 0.9% Flush) ??3 mL, IV Push, Every 8 hours Quetiapine 25 mg Tablet (QUEtiapine 25 mg oral tablet) ??50 mg, By Mouth, 2 times a day CONTINUOUS: (0) PRN: (14) Acetaminophen 325 mg Tablet (Acetaminophen Tablet) ??650 mg, By Mouth, Every 4 hours Dextromethorphan-Guaifenesin 20 mg-200 mg/10 mL Liqu UD (Robitussin DM Liquid) ??10 mL, By Mouth, Every 4 hours Dextrose Inj Syringe (Dextrose 50% Inj Syringe (25Gm)) ??12.5 Gm, IV Push Slowly, Every 20 minutes Dextrose Inj Syringe (Dextrose 50% Inj Syringe (25Gm)) ??25 Gm, IV Push Slowly, Every 15 minutes Docusate Sodium 100 mg Capsule (Docusate Sodium Capsule) ??100 mg 1 capsule, By Mouth, 2 times a day Glucagon 1 mg Inj (Glucagon Inj) ??1 mg, Intramuscular, Once Glucose 40% Gel (15 Gm) (Glucose Gel) ??15 Gm, By Mouth, Every 20 minutes Glucose 40% Gel (15 Gm) (Glucose Gel) ??30 Gm, By Mouth, Every 20 minutes HydrOXYzine Pamoate 25mg Capsule (hydrOXYzine pamoate 25 mg oral capsule) ??50 mg, By Mouth, 3 times a day Melatonin 3 mg Tablet (Melatonin Tablet) ??3 mg, By Mouth, Daily at bedtime NaCl 0.9% Flush 3ml (NaCL 0.9% Flush) ??3 mL, IV Push, Every 8 hours Polyethylene Glycol 17 Gm Powder (MiraLax Powder) ??17 Gm 1 pack/packet, By Mouth, Daily Senna Tablet ??8.6 mg 1 tablet, By Mouth, 2 times a day Simethicone 80 mg Chewable Tablet (Simethicone Tablet) ??80 mg, Chew, 3 times a day ? Results Recent Labs BLOOD BANK Blood Type B Positive ()?? 03/31/2023 01:19 Antibody Screen Negative ()?? 03/31/2023 01:19 ?? BLOOD COUNT & DIFF WBC 9.8 k/mm3 ()?? 03/31/2023 05:23 RBC 5.24 m/mm3 ()?? 03/31/2023 05:23 Hgb 14.2 Gm/dL ()?? 03/31/2023 05:23 Hct 42.3 % ()?? 03/31/2023 05:23 MCV 80.7 femtoliters ()?? 03/31/2023 05:23 MCH 27.1 pg ()?? 03/31/2023 05:23 MCHC 33.6 g/dL ()?? 03/31/2023 05:23 Platelet Count 364 k/mm3 ()?? 03/31/2023 05:23 RDW-SD 40.6 femtoliters ()?? 03/31/2023 05:23 MPV 8.6 femtoliters (Low)?? 03/31/2023 05:23 Nucleated RBC (Automated) 0.0 #/100 WBC'S ()?? 03/31/2023 05:23 Abs. NRBC 0.0 k/mm3 ()?? 03/31/2023 05:23 Abs. Neut 9.0 k/mm3 (High)?? 03/30/2023 14:52 Abs. Lymph 2.6 k/mm3 ()?? 03/30/2023 14:52 Abs. [place] 0.7 k/mm3 ()?? 03/30/2023 14:52 Abs. Eo 0.0 k/mm3 ()?? 03/30/2023 14:52 Abs. Baso 0.1 k/mm3 ()?? 03/30/2023 14:52 Neut % 72.3 % ()?? 03/30/2023 14:52 Lymph % 21.2 % ()?? 03/30/2023 14:52 [place] % 5.4 % ()?? 03/30/2023 14:52 Eos % 0.2 % ()?? 03/30/2023 14:52 Baso % 0.4 % ()?? 03/30/2023 14:52 Imm Gran 0.5 % ()?? 03/30/2023 14:52 Abs. Imm Gran 0.1 k/mm3 ()?? 03/30/2023 14:52 ?? CARDIAC High Sensitivity Troponin (HSTnT) <6 ng/L ()?? 03/30/2023 14:52 ?? CHEM GENERAL Sodium 139 mmol/L ()?? 03/31/2023 05:23 Potassium 3.7 mmol/L ()?? 03/31/2023 05:23 Chloride 104 mmol/L ()?? 03/31/2023 05:23 Bicarbonate Level 22 mmol/L ()?? 03/31/2023 05:23 Anion Gap 13 ()?? 03/31/2023 05:23 Glucose Level 127 mg/dL (High)?? 03/31/2023 05:23 Hemoglobin A1C (Monitoring) 6.2 % (High)?? 03/30/2023 14:52 BUN 20 mg/dL ()?? 03/31/2023 05:23 Creatinine-Blood 0.9 mg/dL ()?? 03/31/2023 05:23 Estimated GFR Creatinine 75 ML/MIN/1.73 M2 ()?? 03/31/2023 05:23 Calcium 9.3 mg/dL ()?? 03/31/2023 05:23 AST (SGOT) 11 units/L ()?? 03/30/2023 14:52 ?? COAG INR 1.0 ()?? 03/30/2023 14:52 Protime (PT) 10.2 seconds ()?? 03/30/2023 14:52 APTT 29.3 seconds ()?? 03/30/2023 14:52 ?? LIPID STUDIES Cholesterol 229 mg/dL (High)?? 03/30/2023 14:52 Triglycerides 165 mg/dL (High)?? 03/30/2023 14:52 HDL Cholesterol 59 mg/dL ()?? 03/30/2023 14:52 LDL Cholesterol 137 mg/dL (High)?? 03/30/2023 14:52 Non HDL Cholesterol 170 mg/dL (High)?? 03/30/2023 14:52 ? Abnormal Labs ?? BLOOD BANK ??Antibody Screen ??Negative () ??03/31/2023 01:19 ??Blood Type ??B Positive () ??03/31/2023 01:19 ? BLOOD COUNT & DIFF ??Abs. Imm Gran ??0.1 k/mm3 () ??03/30/2023 14:52 ??Abs. NRBC ??0.0 k/mm3 () ??03/31/2023 05:23 ??Abs. Neut ??9.0 k/mm3 (High) ??03/30/2023 14:52 ??Imm Gran ??0.5 % () ??03/30/2023 14:52 ??MPV ??8.6 femtoliters (Low) ??03/31/2023 05:23 ??Nucleated RBC (Automated) ??0.0 #/100 WBC'S () ??03/31/2023 05:23 ??RDW-SD ??40.6 femtoliters () ??03/31/2023 05:23 ? CARDIAC ??High Sensitivity Troponin (HSTnT) ??<6 ng/L () ??03/30/2023 14:52 ? CHEM GENERAL ??Estimated GFR Creatinine ??75 ML/MIN/1.73 M2 () ??03/31/2023 05:23 ??Glucose Level ??127 mg/dL (High) ??03/31/2023 05:23 ??Hemoglobin A1C (Monitoring) ??6.2 % (High) ??03/30/2023 14:52 ? LIPID STUDIES ??Cholesterol ??229 mg/dL (High) ??03/30/2023 14:52 ??HDL Cholesterol ??59 mg/dL () ??03/30/2023 14:52 ??LDL Cholesterol ??137 mg/dL (High) ??03/30/2023 14:52 ??Non HDL Cholesterol ??170 mg/dL (High) ??03/30/2023 14:52 ??Triglycerides ??165 mg/dL (High) ??03/30/2023 14:52 ? Note: Critical results are displayed in red. ? Consult note * Ran Galvez MD: PERFORM Event Display: Consultation Note Authored Date: Patient: ??ADOLPH REDDY ? Age:??62 Years?Sex:??Female?:??1960?? Chief Complaint/Reason for Consult L sided weakness with facial droop and slurred speech x 3 days. History of Present Illness 62 yo RH woman?? presented?? with 3 day hx of L sided weakness and 1 day hx of L Facial droop. NIHSS 4. ?? MRI c/w L?? corpus striatal infarct by my read.. NPO. ?? At baseline, she was independent?? in ADL and amb without a device. She lives alone in an apartment in [place]-- no stairs. Brother and sister have had strokes Physical Exam Vitals & Measurements T:??98.1?F?? HR:??100??(Peripheral)?? RR:??20?? BP:??149/101?? SpO2:??95%?? General:??Alert2. Bed to chair p.?? No apparent distress. Psychiatric: Mood:??Normal.?? Pleasant & Cooperative Oriented: X 3 ? HEENT: Cranial Nerves:??CN 2-12 normal,??L central facial droop.?? EOMI.? Visual holman:??Full. ?? Visual neglect:??None.?? No diplopia?No nystagmus. ?? Tracks:??Bilaterally ?? Cardiovascular:??RRR. Lungs:??CTA bilaterally Abdomen/GI:??NABS. NT. Soft. ?? Extremities:?? Edema:??None.?? Passive ROM: WFL? Skin:??No open areas or rash.? Neurologic? Follows Commands:??2 step well ?? can cross body to well.?? Memory:??Normal? Language:??Normal. ?Naming:??Normal.?. ??Dysarthria:??None. ??Dysphonia:??None.? Motor Exam:??Motor strength 5/5 on R; LUE 3-/5 shoulder and elbow, 3/5 wrist and marketing co op; incomplete finger extension and partial isolation of the index finger.?? LLE in supine 3-/5?? hip flexion,?? 3/5knee flex/ext and ankle d/f and p/f ?? Sensory Exam: light touch??normal, position??normal. ?? Coordination Exam: finger to nose??poor d/t weakness L Deep Tendon Reflexes??2+ on R and 3+??on R Babinski:??on L ?? Spasticity Exam:??None.? Mobility Exam:??Supine to sit??mod assist, Mod Assist to Stand but unable to support self?? with LLE ? Swallow: performed at 10:30 AM ?Purees:??Normal.? Thin liquids??normal. ? Solids:??Normal.?? Combos- Normal ?? Assessment/Plan 62 yo RH woman, living?? independently in the community, developed L sided weakness x 3 days and L FD x 1 day. R corpus striatal CVA. Exam c/w this, mild L FD and moderate L HP with inability to transfer, and ambulate. Good functional prognosis ?? Rec: 1. Dental soft diet with HOB upright 2. Bed to chair with assist BID 2. Bowel program 4. Monitor for bladder retention 5. PT for bed mobility, transfers and ambulation 6. OT for ADL and UE strengthening 7.?? 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 Obesity Panic disorder Panic Disorder without Agoraphobia Procedure/Surgical History Cholecystectomy Laproscopic: 08/15/14 bilateral ovariectomy and partial hysterectomy ??in July 1999 colonoscopy 2010 , poor prep hernia repair , July 2011 LEEP January 2012 Home Medications BusPIRone: 30 mg = 1 tablet, By Mouth, 2 times a day Escitalopram: 20 mg = 1 tablet, By Mouth, Daily HydrOXYzine: 50 mg = 1 tablet, By Mouth, 3 times a day, PRN (for anxiety) Mirtazapine: 45 mg = 1 tablet, By Mouth, Daily at bedtime Propranolol: 10 mg = 1 tablet, By Mouth, 2 times a day Quetiapine: 50 mg = 1 tablet, By Mouth, 2 times a day Hospital Medications Medications (22) Active SCHEDULED: (8) Atorvastatin 40 mg Tablet (Lipitor 40 mg oral tablet) ??40 mg, By Mouth, Daily at bedtime BusPIRone 10 mg Tablet (busPIRone 10 mg oral tablet) ??30 mg, By Mouth, 2 times a day Clopidogrel 75 mg Tablet (Plavix 75 mg oral tablet) ??75 mg, By Mouth, Daily Escitalopram 10 mg Tablet (escitalopram 10 mg oral tablet) ??20 mg, By Mouth, Daily Heparin 5000 units/mL Inj (1 mL) (Heparin Inj) ??5,000 units 1 mL, Subcutaneous Injection, 3 times a day Mirtazapine 15 mg Tablet (mirtazapine 15 mg oral tablet) ??45 mg, By Mouth, Daily at bedtime NaCl 0.9% Flush 3ml (NaCL 0.9% Flush) ??3 mL, IV Push, Every 8 hours Quetiapine 25 mg Tablet (QUEtiapine 25 mg oral tablet) ??50 mg, By Mouth, 2 times a day CONTINUOUS: (0) PRN: (14) Acetaminophen 325 mg Tablet (Acetaminophen Tablet) ??650 mg, By Mouth, Every 4 hours Dextromethorphan-Guaifenesin 20 mg-200 mg/10 mL Liqu UD (Robitussin DM Liquid) ??10 mL, By Mouth, Every 4 hours Dextrose Inj Syringe (Dextrose 50% Inj Syringe (25Gm)) ??12.5 Gm, IV Push Slowly, Every 20 minutes Dextrose Inj Syringe (Dextrose 50% Inj Syringe (25Gm)) ??25 Gm, IV Push Slowly, Every 15 minutes Docusate Sodium 100 mg Capsule (Docusate Sodium Capsule) ??100 mg 1 capsule, By Mouth, 2 times a day Glucagon 1 mg Inj (Glucagon Inj) ??1 mg, Intramuscular, Once Glucose 40% Gel (15 Gm) (Glucose Gel) ??15 Gm, By Mouth, Every 20 minutes Glucose 40% Gel (15 Gm) (Glucose Gel) ??30 Gm, By Mouth, Every 20 minutes HydrOXYzine Pamoate 25mg Capsule (hydrOXYzine pamoate 25 mg oral capsule) ??50 mg, By Mouth, 3 times a day Melatonin 3 mg Tablet (Melatonin Tablet) ??3 mg, By Mouth, Daily at bedtime NaCl 0.9% Flush 3ml (NaCL 0.9% Flush) ??3 mL, IV Push, Every 8 hours Polyethylene Glycol 17 Gm Powder (MiraLax Powder) ??17 Gm 1 pack/packet, By Mouth, Daily Senna Tablet ??8.6 mg 1 tablet, By Mouth, 2 times a day Simethicone 80 mg Chewable Tablet (Simethicone Tablet) ??80 mg, Chew, 3 times a day Radiology (03/30/2023 14:[address] Angio Neck Hyperacute Stroke) ?? IMPRESSION: ? 1. ??No proximal occlusion or high grade stenosis in the major arteries of the head and neck. 2. ??Suspected subacute right corpus striatum infarct. 3. ??2 mm right supraclinoid ICA aneurysm. [1] ?? (03/31/2023 04:32 EDT MRI Brain W/O Contrast) IMPRESSION: ?? 1. Acute-subacute right corpus striatal infarct without hemorrhagic transformation. 2. Chronic left thalamocapsular junction lacunar infarct. [2] Lab Results PM&R Labs WBC: 9.8 k/mm3 (03/31/23) Platelet Count: 364 k/mm3 (03/31/23) Sodium: 139 mmol/L (03/31/23) BUN: 20 mg/dL (03/31/23) Creatinine-Blood: 0.9 mg/dL (03/31/23) AST (SGOT): 11 units/L (03/30/23 14:52:00) [1]??CT Angio Neck Hyperacute Stroke; Renny GARCIA , Kendra Gardner 03/30/2023 14:21 EDT [2]??MRI Brain W/O Contrast; Jeovanny Singh MD 03/31/2023 04:32 EDT * Joseph PAYNE, Lucina Mobley: PERFORM Event Display: Consultation Note Authored Date: Patient: ??ADOLPH REDDY ? Age:??62 Years?Sex:??Female?:??1960?? Chief Complaint/Reason for Consultation L sided weakness with facial droop and slurred speech x 3 days. History of Present Illness 62 y/o F w/ PMH of mullerian mucinous tumor, chronic abdominal pain, tobacco and cannabis smoker, depression, panic disorder and substance abuse (opioid and benzos, has been discharged from multiple PCP offices d/t prescription abuse) who presented to the ED w/ L sided weakness x 3 days. LKW 03/27.Patient noted L facial, arm and leg weakness. She believed it would improve so she did not seek medical attention. Upon arrival to the ED,??noted to have significant L sided weakness.??SBP 160s. CTH w/ chronic R BG infarct but no acute infarct. CTA w/o LVO or high grade stenosis.? NIHSS of 4 for L FD, dysarthria,??and L hemiparesis. She states to call her pharmacy when asked about antiplatelets or anticoagulation use. Per chart review, patient is not on either. She statesshe is having a panic attack and to go leave her room as soon as possible to get [her] ativan . Review of Systems Admits to L sided weakness, L FD and dysarthria. Admits to a panic attack. Denies vision changes, aphasia, numbness, paresthesias. Objective ? Vital Signs?? Temperature: 97.8 DegF (03/30/23 12:55:00) Temperature Route: Oral (03/30/23 12:55:00) Pulse Rate: 82 bpm (03/30/23 12:55:00) Respiratory Rate: 18 br/min (03/30/23 12:55:00) Systolic Blood Pressure:??149 mm Hg??High (03/30/23 12:55:00) Diastolic Blood Pressure:??92 mm Hg??High (03/30/23 12:55:00) Mean Arterial Pressure: 111 mm Hg (03/30/23 12:55:00) Pulse Pressure: 57 mm Hg (03/30/23 12:55:00) Oxygen Saturation: 95 % (03/30/23 12:55:00) Mode of Delivery (Oxygen): Room air (03/30/23 12:55:00) ? NIH Stroke Scale Level of Consciousness for Stroke Scale: Alert (03/30/23 14:32:00) Response Month/Age: Answers both questions correctly (03/30/23 14:32:00) Response Open/Close Eyes: Performs both tasks correctly (03/30/23 14:32:00) Best Gaze: Normal (03/30/23 14:32:00) Visual: No visual loss (03/30/23 14:32:00) Facial Palsy: Minor paralysis (03/30/23 14:32:00) Motor Function Left Arm: Drift (03/30/23 14:32:00) Motor Function Right Arm: No drift (03/30/23 14:32:00) Motor Function Left Leg: Drift (03/30/23 14:32:00) Motor Function Right Leg: No drift (03/30/23 14:32:00) Limb Ataxia: Absent (03/30/23 14:32:00) Sensory: Normal; no sensory loss (03/30/23 14:32:00) Best Language: No aphasia (03/30/23 14:32:00) Dysarthria NIH Stroke Scale: Mild to moderate dysarthria (03/30/23 14:32:00) Extinction and Inattention: No abnormality (03/30/23 14:32:00) NIH Stroke Scale Score: 4 (03/30/23 14:32:00) ?? Keene Coma Scale Keene Coma Score: 15 (03/30/23 12:55:00) Motor Response-Adult: Obeys commands (03/30/23 12:55:00) Response Eye Opening: Spontaneously (03/30/23 12:55:00) Verbal Response-Adult: Oriented and converses (03/30/23 12:55:00) ? Physical Exam Gen: NAD, awake, alert HEENT: normocephalic, atraumatic. No ptosis. Psych: agitated, not anxious appearing Cardio: RRR Lungs: normal I:E Abdomen: nondistended Extremities: no edema Skin: warm and dry Neuro: Mental status is??intact, no deficits Speech is??dysarthric,??no aphasia. Names well. Follows simple and complex commands. Cranial Nerves: PERRL, EOMI without nystagmus, VFF. L FD.?? Motor: LUE 3/5, LLE 3/5;??slight improvement with??encouragement.??R side 5/5. Sensation: Intact light touch sensation bilaterally. Coordination: No ataxia or dysmetria noted with finger to nose on R, cannot perform on L.? CT Head IMPRESSION: ?? No acute intracranial pathology. Mild chronic small vessel ischemic changes. ?? Images have been personally reviewed by myself. ?? Assessment/Plan 62 y/o F w/ PMH of mullerian mucinous tumor, chronic abdominal pain, tobacco and cannabis smoker, depression, panic disorder and substance abuse (opioid and benzos, has been discharged from multiple PCP offices d/t prescription abuse) who presented to the ED on 03/30 w/ L sided weakness x 3 days. LKW 03/27. Patient noted L facial, arm and leg weakness. She believed it would improve so she did notseek medical attention. NIHSS 4 for L FD, dysarthria, and L hemiparesis.??CTH w/ chronic R BG infarct but no acute infarct. CTA w/o LVO or high grade stenosis. Patient became agitated when told she will need a stroke workup. Immediately asked for ativan and ordered me out of her room to get her ativan. ?? Dx: L hemiparesis x 3 days; chronic appearing R BG infarct - r/o acute/subacute infarct ?? Recommendations: - q 4 hour neuro checks - MRI of brain w/o??to assess for infarct - load Plavix 300 mg NOW; followed up Plavix 75 mg daily (would like pt to be on DAPT but states shes allergic to ASA as it makes her stomach hurt) - check LDL. recommend goal LDL <70 with high dose statin - check A1C - PM&R consult - cardiac telemetry - NPO until passes swallow eval - DVT ppx with SQH - permissive hypertension - provide stroke education - outpatient goals LDL between 40 &70, A1C <7%, and BP <120/80? D/w Dr. Escudero D/w Dr. Martinez Call/cortex with any questions. Neurology will follow. ?? Histories Allergies Allergies ?(Active and Proposed Allergies Only) Motrin? (Severity: Unknown severity, Onset: Unknown) ?Reactions: GI s/s aspirin? (Severity: Unknown severity, Onset: Unknown) ?Reactions: GI s/s ? 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 Past Surgical History Cholecystectomy Laproscopic: 08/15/14 bilateral ovariectomy and partial hysterectomy ??in July 1999 colonoscopy 2010 , poor prep hernia repair , July 2011 LEEP January 2012 ? Social History Tobacco Details:??Current every day smoker Details:??Use: Current every day smoker. ? Family History Other: CAD - Coronary artery disease; Diabetes mellitus type II; Hyperlipidemia; Hypertension ? Medications Home Medications Lorazepam (lorazepam 2 mg oral tablet)?1?tab(s)?2?Milligram?By Mouth?3 times a day?as needed?PRN Omeprazole (omeprazole 20 mg oral enteric coated capsule)?2?capsule?40?Milligram?By Mouth?Daily Oxcarbazepine (oxcarbazepine 150 mg oral tablet)?3?tab(s)?450?Milligram?By Mouth?2 times a day?for 30?Days PROCHLORperazine (prochlorperazine 10 mg oral tablet)?1?tab(s)?10?Milligram?By Mouth?3 times a day?as needed?as needed for nausea/vomiting?for 10?Days Venlafaxine (venlafaxine 150 mg oral capsule, extended release)?1?capsule?150?Milligram?By Mouth?2 times a day ? Results Recent Labs No labs resulted between 03/29/2023 00:00 and 03/30/2023 14:43? Abnormal Labs No lab data available. ? CBC, CBC w/Diff?? No qualifying data available. ?? BMP, Mg, and Phos?? No qualifying data available. ?? Coagulation Profile?? No qualifying data available. ?? LFT?? No qualifying data available. ?? Urinalysis?? No qualifying data available. ? Blood Gases?? No qualifying data available. ?? Uric/LDH?? No qualifying data available. ? * Lindsay Becker MD: PERFORM Event Display: Consultation Note Authored Date: [id number] Attending Attestation:??I have discussed the case and its management with the advanced practitionerand agree with the findings and plan as documented in the advanced practitioner???s note. ?? Lindsay Mendoza M.D Attending-Vascular Neurology Department of Neurosciences Note * Britney Gomez MD: PERFORM Event Display: Discharge/Transfer Note Hospital Authored Date: Patient: ??ADOLPH REDDY ? Age:??62 Years?Sex:??Female?:??1960?? Patient Information Discharge Location: [facility] Primary Care Physician: Not on Staff, PCP Admit Date/Time: 03/30/23 16:22 Discharge Disposition Discharge Disposition: Long Term Facility/Rehab Discharge Diagnosis Anxiety and depression (F41.9) Arterial ischemic stroke (I63.9) ?? _ Discharge Medications Atorvastatin (Lipitor 40 mg oral tablet)?40?Milligram?By Mouth?Daily at bedtime BusPIRone (busPIRone 30 mg oral tablet)?1?tab(s)?30?Milligram?By Mouth?2 times a day Clopidogrel (Plavix 75 mg oral tablet)?75?Milligram?By Mouth?Daily Escitalopram (escitalopram 20 mg oral tablet)?1?tab(s)?20?Milligram?By Mouth?Daily HydrOXYzine (hydrOXYzine hydrochloride 50 mg oral tablet)?1?tab(s)?50?Milligram?By Mouth?3 times a day?as needed?for anxiety Melatonin (melatonin 3 mg oral tablet)?3?Milligram?By Mouth?Daily at bedtime?as needed?Insomnia Mirtazapine (mirtazapine 45 mg oral tablet)?1?tab(s)?45?Milligram?By Mouth?Daily at bedtime Nicotine?21?Milligram?Topically?Daily Polyethylene Glycol 3350 (MiraLax Powder)?1?pack/packet?17?gram?By Mouth?Daily?as needed?Constipation Propranolol (propranolol 10 mg oral tablet)?10?Milligram?1?tablet?By Mouth?2 times a day Quetiapine (QUEtiapine 50 mg oral tablet)?1?tab(s)?50?Milligram?By Mouth?2 times a day ? Quality Measures Stroke Quality Measures:?Discharged on Antithrombotic Therapy:??Allergy to Antithrombotic ?Statin Prescribed at Discharge:??Active Home Med for Statin ?? Tobacco Use Treatment:?Cessation Medication Prescribed on Discharge:??Active Home Med for Cessation Medication ? Medications Started Statin Plavix Allergies Allergies ?(Active and Proposed Allergies Only) Motrin? (Severity: Unknown severity, Onset: Unknown) ?Reactions: GI s/s aspirin? (Severity: Unknown severity, Onset: Unknown) ?Reactions: GI s/s ? Future Appointments will need to Fu with Neurology Hospital Course ??Chief Complaint/Reason for Consultation ?? L sided weakness with facial droop and slurred speech x 3 days. ? History of Present Illness ? Patient is a 62-year-old female with past medical history of hypertension, tobacco and cannabis smoker, anxiety/depression, history of panic attack, history of substance abuse noted in neurology notefrom today, presented to ED with left-sided weakness of 3 days.?? Initially she thought it would improve so did not seek medical attention but since it was not improving came to the hospital today.??At the time of my interview she states that her left leg strength is improved but left upper extremity continues to be weak.?? She denies being on aspirin or Plavix.?? Reports only taking the medication bottles that he she has in her purse which I reviewed.?? She does report some issues with speech. She denies any cough or runny nose or sore throat.?? No fever or chills.?? No chest pain or shortness of breath or palpitation.?? No history of CVA.?? No history of VTE.?? No abdominal pain or constipation or diarrhea or nausea or vomiting.?? No dysuria, urgency or frequency.?? No headache or vision changes.?? She feels anxious and wants her psychiatric medications. ?? In the ED she underwent CT and CTA head and neck for stroke rule out.?? Neurology was consulted.?? Plavix 300 mg and lorazepam 2 mg was given and she is being admitted for further management. ?? Hospital Course: 62-year-old female with PMH significant for Mullerian mucinous tumor, chronic abdominal pain, tobacco and cannabis smoker, depression, panic disorder and substance abuse (opioid and benzos, has been discharged from multiple PCP offices due to prescription abuse) who presented to the ED on 03/30 for evaluation of Left sided weakness x 3 days. LKW 03/27. Patient noted to have Left facial, droop, inaddition to slurred speech and LUE/LLE weakness. Initial NIHSS 4. CT Head nonacute. Chronic Right BG infarct noted. CTA Head/Neck without LVO or high grade stenosis. MRI brain with acute/subacute right corpus striatal infarct. Chronic left thalmocapsular lacunar infarct noted. Patient loaded with Plavix. ECHO with LVEF: 60-65%. Left atrium normal. No shunting on bubble study. Today, continues with left facial droop, slurred speech, and Left-sided weakness (slightly improved). ? Acute/subacute right corpus striatal infarct Patient was seen by neurology. Started on Plavix 75 mg daily Started on statin therapy for LDL goal less than 70 Patient to have outpatient follow-up with [facility] for incidental right ICA aneurysm which has been requested Outpatient neurology follow-up with Dr.Flores Mendoza - appointment requested ?? Patient was seen by PM&R PT for bed mobility transfers and ambulation OT for ADL and upper extremity strengthening Patient to be transferred to acute rehab ?? Hypertension, on propanolol, Nicotine abuse, counselled against use.?? Started on nicotine patch ?? Anxiety/depression, continue hydroxyzine 50 mg 3 times as needed, buspirone 30 mg 2 times a day, escitalopram 20 mg daily, mirtazapine 40 mg daily at bedtime, quetiapine 50 mg 2 times a day ?? GERD, used to be on omeprazole but not taking it now.? Patient stable enough to be discharged to rehab today. ?? Cardiogram done showed Summary The left ventricular size is normal. Left ventricular wall thickness is normal to near normal. Suboptimal endocardial definition in apical images limits evaluation. The left ventricular ejection fraction is 60-65%. No obvious wall motion abnormalities seen on limited views. Normal diastolic function. The left atrium is normal in size. An agitated saline study (bubble study) was performed and was normal at rest and with Valsalva. There is no evidence of right to left shunting. The aortic valve is poorly visualized. There is no aortic stenosis. There is trivial aortic regurgitation. The right ventricle is normal in size. Right ventricular systolic function is mildly reduced. There is no significant pericardial effusion. ?? MRI of the head showed IMPRESSION: ?? 1. Acute-subacute right corpus striatal infarct without hemorrhagic transformation. 2. Chronic left thalamocapsular junction lacunar infarct. ? Objective Assessment and Plan Discharge Planning:? Measurements?? Height: 156 cm (03/31/23) ?? Vital Signs?? Temperature: 98.5 DegF (04/01/23 06:10:00) Temperature Route: Oral (04/01/23 06:10:00) Pulse Rate:??120 bpm??High (04/01/23 13:12:00) Respiratory Rate: 18 br/min (04/01/23 13:12:00) Systolic Blood Pressure: 130 mm Hg (04/01/23 13:12:00) Diastolic Blood Pressure:??104 mm Hg??High (04/01/23 13:12:00) Blood pressure sites: Arm, right (03/31/23 13:43:00) Mean Arterial Pressure: 119 mm Hg (03/31/23 17:15:00) Pulse Pressure: 50 mm Hg (04/01/23 06:10:00) Oxygen Saturation: 96 % (04/01/23 13:12:00) Mode of Delivery (Oxygen): Room air (04/01/23 13:12:00) Early Warning Score: 2 (04/01/23 13:22:44) ? Intake/Output? No Data Available ?? . Physical Exam Constitutional: Alert, in no acute distress. Respiratory: Clear to auscultation. No wheezing or crackles. No use of accessory muscles. Cardiovascular: S1S2 regular. No murmurs, rubs or gallops. Gastrointestinal: Abdomen soft, non-tender, non-distended. Normal bowel sounds.. Extremities: No lower extremity pitting??edema. No cyanosis or clubbing. Neurologic: AAOx3,??Dysarthria and facial droop +,??left-sided??upper and lower extremity weakness Consultants Neurology and PM and R Follow-Up Appointments Added Follow Up ?Time Frame ?Comments Follow up with Neurology Patient Instructions - Continue Plavix 75 mg daily (Ideally, prefer DAPT, but patient states she is allergic to ASA as it makes her stomach hurt) -??Continue??statin therapy for LDL goal <70 - Outpatient follow up with [facility] for incidental Right ICA aneurysm - requested - Outpatient Neurology follow up with Dr. Jessica Mendoza - appointment requested ?? Post Discharge Care Diet: ??Cardiac diet ?? Code Status: ??Full Code ?? Condition: ??Fair ?? Discharge ?04/01/23 13:20:00 EDT Discharge Prescriptions ?ePrescribed, 04/01/23 13:20:00 EDT Home Health Face to Face ^HomeHealthFTF Results Discharge Labs BLOOD BANK Blood Type B Positive ()?? 03/31/2023 01:19 Antibody Screen Negative ()?? 03/31/2023 01:19 ?? BLOOD COUNT & DIFF WBC 9.8 k/mm3 ()?? 03/31/2023 05:23 RBC 5.24 m/mm3 ()?? 03/31/2023 05:23 Hgb 14.2 Gm/dL ()?? 03/31/2023 05:23 Hct 42.3 % ()?? 03/31/2023 05:23 MCV 80.7 femtoliters ()?? 03/31/2023 05:23 MCH 27.1 pg ()?? 03/31/2023 05:23 MCHC 33.6 g/dL ()?? 03/31/2023 05:23 Platelet Count 364 k/mm3 ()?? 03/31/2023 05:23 RDW-SD 40.6 femtoliters ()?? 03/31/2023 05:23 MPV 8.6 femtoliters (Low)?? 03/31/2023 05:23 Nucleated RBC (Automated) 0.0 #/100 WBC'S ()?? 03/31/2023 05:23 Abs. NRBC 0.0 k/mm3 ()?? 03/31/2023 05:23 Abs. Neut 9.0 k/mm3 (High)?? 03/30/2023 14:52 Abs. Lymph 2.6 k/mm3 ()?? 03/30/2023 14:52 Abs. [place] 0.7 k/mm3 ()?? 03/30/2023 14:52 Abs. Eo 0.0 k/mm3 ()?? 03/30/2023 14:52 Abs. Baso 0.1 k/mm3 ()?? 03/30/2023 14:52 Neut % 72.3 % ()?? 03/30/2023 14:52 Lymph % 21.2 % ()?? 03/30/2023 14:52 [place] % 5.4 % ()?? 03/30/2023 14:52 Eos % 0.2 % ()?? 03/30/2023 14:52 Baso % 0.4 % ()?? 03/30/2023 14:52 Imm Gran 0.5 % ()?? 03/30/2023 14:52 Abs. Imm Gran 0.1 k/mm3 ()?? 03/30/2023 14:52 ?? CARDIAC High Sensitivity Troponin (HSTnT) <6 ng/L ()?? 03/30/2023 14:52 ? CHEM GENERAL Sodium 139 mmol/L ()?? 03/31/2023 05:23 Potassium 3.7 mmol/L ()?? 03/31/2023 05:23 Chloride 104 mmol/L ()?? 03/31/2023 05:23 Bicarbonate Level 22 mmol/L ()?? 03/31/2023 05:23 Anion Gap 13 ()?? 03/31/2023 05:23 Glucose Level 127 mg/dL (High)?? 03/31/2023 05:23 Glucose, POC 124 mg/dL (High)?? 03/31/2023 23:08 Hemoglobin A1C (Monitoring) 6.2 % (High)?? 03/30/2023 14:52 BUN 20 mg/dL ()?? 03/31/2023 05:23 Creatinine-Blood 0.9 mg/dL ()?? 03/31/2023 05:23 Estimated GFR Creatinine 75 ML/MIN/1.73 M2 ()?? 03/31/2023 05:23 Calcium 9.3 mg/dL ()?? 03/31/2023 05:23 AST (SGOT) 11 units/L ()?? 03/30/2023 14:52 ? COAG INR 1.0 ()?? 03/30/2023 14:52 Protime (PT) 10.2 seconds ()?? 03/30/2023 14:52 APTT 29.3 seconds ()?? 03/30/2023 14:52 ? LIPID STUDIES Cholesterol 229 mg/dL (High)?? 03/30/2023 14:52 Triglycerides 165 mg/dL (High)?? 03/30/2023 14:52 HDL Cholesterol 59 mg/dL ()?? 03/30/2023 14:52 LDL Cholesterol 137 mg/dL (High)?? 03/30/2023 14:52 Non HDL Cholesterol 170 mg/dL (High)?? 03/30/2023 14:52 ? Blood Glucose Trend Glucose, POC:??124 mg/dL??High (03/31/23 23:08:00) Glucose, POC:??158 mg/dL??High (03/31/23 17:13:00) ? >30 ??minutes spent on discharge * Amber Moreland: PERFORM, SIGN, VERIFY Event Display: Case Management Discharge Plan Authored Date: [id number] Patient: ADOLPH REDDY Age: 62 years Sex: Female : 1960 Associated Diagnoses: None Author: Amber Moreland Discharge Plan Case Management Discharge Plan : Case Management Discharge Plan Data 04/01/2023 12:40 EDT Discharge Level of Care at Discharge Inpatient Rehab Facility/Unit Discharge Nursing Homes/Rehab Facilities [facility] Discharge Transportation Arranged [facility] [address] [place] [phone] Discharge Arranged Transport Date/Time 04/01/2023 14:00 Mode of Transportation Arranged Ambulance Name of Person Notified of Transfer Shanae Patient Care team information Care Team Personnel Name: John Whitney MD Position: [facility] Physician - Oncology Member Role: Lifetime Consulting Physician Address: Address: [address] [place] [address] [facility] Hematology Oncology [address] Name: Not on Staff, PCP Position: [facility] Physician (General Medicine) Member Role: PCP Name: *Meagan GASPAR Attending Position: [facility] ED Medicine Name: Shanell Flores RN Position: [facility] ED RN W/OE and Tasks Member Role: Patient Care Provider Name: Kris Mercedes RN Position: [facility] ED RN W/OE and Tasks Member Role: Patient Care Provider Care Team Related Persons Name: SHANAE LOVE Address: [address] [address] Name: SHANAE MENON Address: [place], [place]
--- OUTSIDE RECORDS SUMMARY | 2023-05-17 01:31 | XMS_ITS | Continuity of Care Document ---
Author Name Unknown Organization [facility] Address [address] [place] [id number]- Care Team Providers Care [employer] Technician Name Role Phone Not on Staff, PCP Primary Care Physician Unavail able Encounter [facility] Date(s): 04/02/23 - 05/02/23 [facility] [address] [place] [id number]- Attending Physician: Isaias Geller Admitting Physician: Isaias Geller Referring Physician: Isaias Geller Allergies, Adverse Reactions, Alerts Substance Reaction Severity [...] Panic Disorder without Agoraphobia Confirmed 04/05/12 Active Social History Social History Type Response Smoking Status 5-9 cigarettes (betw een 1/4 to 1/2 pack)/day in last 30 days; Interested in cessation: Yes; Patient wants NRT during admission Yes; Other: 40+ years smoking. Has decreased to a half a pack or less for the last few months.; entered on: 03/31/23 Sex Patient Care team information Care Team Personnel Name: John Whitney MD Position: [facility] Physician - Oncology Member Role: Lifetime Consulting Physician Address: Address: [address] [place] [address] Cancer Care [facility] Hematology Oncology [place], [place] [address] Name: Not on Staff, PCP Position: [facility] Physician (General Medicine) Member Role: PCP Care Team Related Persons Name: SHANAE LOVE Address: home [address] [place] [id number] Name: SHANAE MENON Address: home [place], [place]
[2023-05-17 01:56] LABS: Appearance Urine Clear; Color Urine Yellow; Glucose Urine UA Negative (Negative); Leukocyte Esterase Urine Negative (Negative); Nitrite Urine Positive (Negative); Specific Gravity - Urine >= 1.030 (1.005-1.025); UMIC TRIGGER UACC YES; Urine Blood Negative (Negative); Urine Ketones Negative (Negative); Urine Protein Negative (Neg-Trace)
[2023-05-17 01:58] LABS: Bacteria Urine 4+ (None Seen); Hyaline Casts Urine 0-2 /LPF (0-2); RBC Urine 0-2 /HPF (0-2); Squamous Epithelial Cell Urine 0-2 /HPF (0-2); UACC Culture Trigger YES; WBC Urine 0-5 /HPF (0-5)
[2023-05-17 02:00] VITALS: BP 143/88; PULSE 67; RESP 16; TEMP 36.4; O2SAT 98
--- NOTE | 2023-05-17 02:46 | PC.NURSE ---
PT resting in bed, respirations even and unlabored, in no apparent distress. Talking in full clear sentences. VS stable. Plan of care ongoing.
[2023-05-17 04:42] VITALS: BP 98/59; PULSE 63; RESP 14; TEMP 36.4; O2SAT 95
--- OUTSIDE RECORDS SUMMARY | 2023-05-17 06:14 | XMS_ITS | Summary of Care ---
Author Name Unknown Organization [facility] Address [address] [place] [address]- Encounter 04/01/23 - 04/11/[address] [id number] Discharge Disposition: 01H Discharged to Home or Self Care Attending Physician: Shu Kuhn MD Admitting Physician: Shu Kuhn MD Allergies, Adverse Reactions, Alerts Substance Reaction Severity Status aspirin Active morphine Active Medications busPIRone 30 mg oral tablet 30 mg = 1 tab, Tab, Oral, BID, 60 tab, 0 Refill(s), Route to Pharmacy Electronically, [facility] #[id number], 155, 04/02/23 10:55:00 EDT, Height/Length Dosing, cm, 73.7, 04/01/23 17:29:00 EDT, Weight Dosing, kg Start Date: 04/08/23 Status: Ordered gabapentin 100 mg oral capsule 100 mg, = 1 cap, Indication: Neuropathic Pain - Spinal Cap, Oral, TID, 90 cap, 0 Refill(s), Route to Pharmacy Electronically, [facility] #[id number], 155, 04/02/23 10:55:00 EDT, Height/Length Dosing, cm, 73.7, 04/01/23 17:29:00 EDT, Weight Dosing... Start Date: 04/08/23 Status: Ordered Lexapro 20 mg oral tablet 20 mg = 1 tab, Tab, Oral, Daily, 30 tab, 0 Refill(s), Route to Pharmacy Electronically, [facility] #[id number], 155, 04/02/23 10:55:00 EDT, Height/Length Dosing, cm, 73.7, 04/01/23 17:29:00 EDT,Weight Dosing, kg Start Date: 04/08/23 Status: Ordered Lipitor 40 mg oral tablet 40 mg = 1 tab, Tab, Oral, QHS, 30 tab, 0 Refill(s), Route to Pharmacy Electronically, [facility] #[id number], 155, 04/02/23 10:55:00 EDT, Height/Length Dosing, cm, 73.7, 04/01/23 17:29:00 EDT, Weight Dosing, kg Start Date: 04/08/23 Status: Ordered melatonin 3 mg oral tablet 3 mg = 1 tab, Tab, Oral, QHS PRN, 0 Refill(s), Insomnia Start Date: 04/01/23 Status: Ordered MiraLax oral powder for reconstitution 17 gm, Powder, Oral, Daily PRN, 0 Refill(s), Constipation Start Date: 04/01/23 Status: Ordered mirtazapine 45 mg oral tablet 45 mg = 1 tab, Tab, Oral, QHS, 30 tab, 0 Refill(s), Route to Pharmacy Electronically, [facility] #[id number], 155, 04/02/23 10:55:00 EDT, Height/Length Dosing, cm, 73.7, 04/01/23 17:29:00 EDT, Weight Dosing, kg Start Date: 04/08/23 Status: Ordered nicotine 21 mg/24 hr transdermal film, extended release 1 patch, Film, Transdermal, Daily, 20 patch, 0 Refill(s), Route to Pharmacy Electronically, [facility] #[id number], 155, 04/02/23 10:55:00 EDT, Height/Length Dosing, cm, 73.7, 04/01/23 17:29:00 EDT, Weight Dosing, kg Start Date: 04/08/23 Status: Ordered Plavix 75 mg oral tablet 75 mg, = 1 tab, Tab, Oral, Daily, 30 tab, 0 Refill(s), Route to Pharmacy Electronically, [facility] #[id number], 155, 04/02/23 10:55:00 EDT, Height/Length Dosing, cm, 73.7, 04/01/23 17:29:00 EDT, Weight Dosing, kg Start Date: 04/08/23 Status: Ordered propranolol 10 mg = 1 tab, Tab, Oral, Start date 04/10/23 20:00:00 EST, 04/01/23 15:44:00 EDT Start Date: 04/10/23 Stop Date: 04/10/23 Status: Completed propranolol 10 mg oral tablet 10 mg, 1 tab, Tab, Oral, BID, 60 tab, 0 Refill(s), Route to Pharmacy Electronically, [facility] #[id number], 155, 04/02/23 10:55:00 EDT, Height/Length Dosing, cm, 73.7, 04/01/23 17:29:00 EDT, Weight Dosing, kg Start Date: 04/08/23 Status: Ordered Seroquel 50 mg oral tablet 50 mg, = 1 tab, Tab, Oral, BID, 60 tab, 0 Refill(s), Route to Pharmacy Electronically, [facility] #[id number], 155, 04/02/23 10:55:00 EDT, Height/Length Dosing, cm, 73.7, 04/01/23 17:29:00 EDT, Weight Dosing, kg Start Date: 04/08/23 Status: Ordered Therapeutic Multiple Vitamins with Minerals oral tablet 1 tab, Tab, Oral, Daily, 0 Refill(s) Start Date: 04/08/23 Status: Ordered Problem List Condition Confirmation Course Effective Dates Status H ealth Status Informant Abdominal pain Confirmed Active At risk of venous thromboembolus 1 Confirmed 04/02/23 Active Cannabis Confirmed Active Chest pain Confirmed Active CVA - Cerebrovascular accident Confirmed Active Depression Confirmed Active GERD - Gastro-esophageal reflux disease Confirmed Active Obesity Confirmed Active Panic disorder with agoraphobia Confirmed Active Smoker Confirmed Active Substance abuse Confirmed Active 1Problem added by Discern Expert Rule: EBN_VTERISKPROB_3 Results Most recent to oldest [Reference Range]: 1 2 Creatinine Level 0.97 mg/dL (04/10/23 5:52 PM) 1.14 mg/dL (04/02/23 8:42 AM) Estimated Creatinine Clearance 46.59 mL/ min 1 (04/10/23 5:52 PM) 39.65 mL/min 2 (04/02/23 8:42 AM) 1Result Comment: Calculated using method: Cockcroft-Gault (default) Calculated using Formula : 0.85*(140-ageInYears)*IBW/(72*scrInMGperDL) Age: 62 (63538401859.0) Serum Creatinine: 0.97 mg/dL (34119160335.0) Height: 155 cm (52687494111.0) Weight: 73.3 kg (IBW = 47.854 kg) 2Result Comment: Calculated using method: Cockcroft-Gault (default) Calculated using Formula : 0.85*(140-ageInYears)*IBW/(72*scrInMGperDL) Age: 62 (45036200665.0) Serum Creatinine: 1.14 mg/dL (03569437161.0) Height: 155 cm (42590750694.0) Weight: 73.7 kg (IBW = 47.854 kg) Vital Signs Most recent to oldest [Reference Range]: 1 2 3 Temperature Oral F [96.4-99.1 DegF] 97.6 DegF (04/11/23 5:32 AM) 97.7 DegF (04/10/23 4:30 PM) 98.4 DegF (04/10/23 5:10 AM) Temperature Axillary F [96.4-99.1 DegF] 98.1 DegF (04/05/23 5:00 AM) 98.2 DegF (04/04/23 8:13 AM) 97.4 DegF (04/04/23 4:08 AM) Peripheral Pulse Rate [60-100 bpm] 76 bpm (04/11/23 7:21 AM) 104 bpm *HI* (04/11/23 5:32 AM) 78 bpm (04/10/23 9:21 PM) Respiratory Rate [14-20 br/min] 20 br/min (04/11/23 5:32 AM) 19 br/min (04/10/23 4:30 PM) 19 br/min (04/07/23 4:25 PM) Blood Pressure [90-140/60-90 mmHg] 114/83mmHg (04/11/23 7:21 AM) 171/116mmHg *HI* (04/11/23 5:32 AM) Systolic Blood Pressure [90-140 mmHg] 154 mmHg *HI* (04/10/23 9:21 PM) Diastolic Blood Pressure [60-90 mmHg] 88 mmHg (04/10/23 9:21 PM) Mean Arterial Pressure, Cuff 107 mmHg (04/10/23 4:30 PM) 90 mmHg (04/10/23 7:33 AM) 78 mmHg (04/10/23 5:10 AM) Extremity used to obtain blood pressure Left Arm (04/11/23 7:21 AM) Left Arm (04/11/23 5:32 AM) Vital Signs Additional Information (04/10/23 7:00 AM) Temperature Axillary 36.7 DegC 1 (04/05/23 5:00 AM) 36.8 DegC 2 (04/04/23 8:13 AM) 36.3 DegC 3 (04/04/23 4:08 AM) Temperature Oral 36.5 DegC 4 (04/10/23 4:30 PM) 36.9 DegC 5 (04/10/23 5:10 AM) Temperature Oral [35.8-37.3 DegC] 36.8 DegC (04/09/23 3:00 PM) 1Result Comment: Charted by SYSTEM secondary to charting of Temperature Axillary F on a Vitals Monitor. Rule: VITALSLINK_CALCULATIONS_2 2Result Comment: Charted by SYSTEM secondary to charting of Temperature Axillary F on a Vitals Monitor. Rule: VITALSLINK_CALCULATIONS_2 3Result Comment: Charted by SYSTEM secondary to charting of Temperature Axillary F on a Vitals Monitor. Rule: VITALSLINK_CALCULATIONS_2 4Result Comment: Charted by SYSTEM secondary to charting of Temperature Oral F on a Vitals Monitor. Rule: VITALSLINK_CALCULATIONS_2 5Result Comment: Charted by SYSTEM secondary to charting of Temperature Oral F on a Vitals Monitor. Rule: VITALSLINK_CALCULATIONS_2 Social History Social History Type Response Sex Female
--- NOTE | 2023-05-17 06:59 | P.HPHOSP_ITS ---
History of Present Illness Date of Service: 05/17/23 Attending physician on admission: Galileo Kingsley Chief Complaint: Left sided numbness 63-year-old white female with a history of hypertension, ovarian cancer (1999), cholecystectomy, and stroke with residual left hemiparesis who presents to the emergency department for evaluation of left arm and leg numbness that started 2 hours prior to her presentation. She at baseline has residual left sided weakness which was unchanged. The only new symptoms was the numbness, first involving the LUE and then the LLE. This got her worried since she thought that she may be having another stroke (this is what happened too when she had the stroke) hence her decision to come in for evaluation. She states that since her last stroke she has recovered almost full strength in her left leg but still has some weakness in her left arm. EMS reported a blood pressure 160/100, sinus rhythm on the EKG, O2 saturation 98% on room air with a point of care glucose of 197. However by the time I saw her, the numbness had resolved and initial work up done in the emergency room was unrevealing with both CT brain and CTA head and neck not showing any acute intra-cranial pathology. Review of Systems 2 Review of Systems: Yes all other systems are reviewed and are negative PMFSH Social History Smoked in Last 30 Days: Yes Use of substances other than those prescribed or required for medical reasons: Yes Substance Use Type: Marijuana Substance Use Frequency: Chronic Longstanding Advance Directives: No Advance Directives Information Provided: No Patient : No Meds Allergies Allergy/AdvReac Type Severity Reaction Status Date / Time aspirin [ASA] Allergy Intermediate GI UPSET, Verified 05/17/23 06:28 nausea and vomiting calcium carbonate [Bufferin] Allergy Unknown Rash Verified 05/17/23 06:28 magnesium [Bufferin] Allergy Unknown Rash Verified 05/17/23 06:28 butter Allergy Unknown vomiting Uncoded 10/09/19 00:00 milk Allergy Unknown vomiting Uncoded 10/09/19 00:00 Physical Exam 2 Vital Signs and Narrative: Vital Signs: Last Vital Signs Temp 97.5 F 05/17/23 04:42 Pulse 63 05/17/23 04:42 Resp 14 05/17/23 04:42 BP 98/59 L 05/17/23 04:42 Pulse Ox 95 05/17/23 04:42 O2 Del Method Room Air 05/17/23 04:42 BMI result Body Mass Index 30.9 General: Well nourished. Awake, alert and oriented x 4. No apparent distress Eyes: No pallor or jaundice. PERRLA, EOMI HENT: Moist oral mucus membranes. No oropharyngeal lesions. Neck: Supple. No cervical adenopathy. No JVD Cardiovascular: Regular rate and rhythm. Normal heart sounds. No murmurs, rubs or gallops. No JVD. No peripheral edema. Respiratory: Normal respiratory effort with no accessory muscle use. CTAB. Gastrointestinal: Abdomen is soft, non-tender, non-distended. NABS. No hepatosplenomegaly Extremities: No edema. No calf tenderness. Good peripheral pulses Skin - Warm/Dry. No rashes. No motling. Capillary refill is < 2 seconds Neurological: AAOx4. Intact speech & cognition. Noted with left sided hemiparesis. CN II - XII grossly intact but not individually tested. Hematologic: No bleeding. No ecchymosis. No swollen or tender lymph nodes. Psychiatric: Cooperative. Appropriate mood and affect. Results Labs 05/17/23 01:01 05/17/23 01:01 Labs: Laboratory Results - last 24 hr 05/16/23 05/17/23 05/17/23 23:58 00:01 01:01 MCV 82.5 MCH 27.0 MCHC 32.8 RDW 14.9 Plt Count 348 MPV 8.8 L Immature Gran % (Auto) 0.3 Neut % (Auto) 70.5 Lymph % (Auto) 18.7 L [place] % (Auto) 9.0 Eos % (Auto) 0.9 Baso % (Auto) 0.6 Lymph # (Auto) 1.8 [place] # (Auto) 0.9 Eos # (Auto) 0.1 Baso # (Auto) 0.1 Abs Immat Gran (auto) 0.03 Absolute Neuts (auto) 6.8 Absolute Nucleated RBC 0.000 Nucleated RBC % (auto) 0.0 PT 10.1 L Whole Blood PT 13.6 H INR 0.8 L Whole Blood INR 1.0 APTT 32.1 Anion Gap 12 Estim Creat Clear Calc 61.1 Estimated GFR > 60 POC Glucose 156 H Random Glucose 122 H Calcium 9.8 Total Bilirubin 0.3 Direct Bilirubin 0.1 AST 17 ALT 21 Alkaline Phosphatase 91 Total Creatine Kinase 44 Total Protein 6.8 Albumin 4.3 Urine Color Urine Appearance Urine pH Ur Specific [place] Urine Protein Urine Glucose (UA) Urine Ketones Urine Blood Urine Nitrite Ur Leukocyte Esterase Urine RBC Urine WBC Ur Squamous Epith Cells Urine Bacteria Hyaline Casts Ethyl Alcohol < 10 05/17/23 01:49 MCV MCH MCHC RDW Plt Count MPV Immature Gran % (Auto) Neut % (Auto) Lymph % (Auto) [place] % (Auto) Eos % (Auto) Baso % (Auto) Lymph # (Auto) [place] # (Auto) Eos # (Auto) Baso # (Auto) Abs Immat Gran (auto) Absolute Neuts (auto) Absolute Nucleated RBC Nucleated RBC % (auto) PT Whole Blood PT INR Whole Blood INR APTT Anion Gap Estim Creat Clear Calc Estimated GFR POC Glucose Random Glucose Calcium Total Bilirubin Direct Bilirubin AST ALT Alkaline Phosphatase Total Creatine Kinase Total Protein Albumin Urine Color Yellow Urine Appearance Clear Urine pH 5.0 Ur Specific [place] >= 1.030 H Urine Protein Negative Urine Glucose (UA) Negative Urine Ketones Negative Urine Blood Negative Urine Nitrite Positive H Ur Leukocyte Esterase Negative Urine RBC 0-2 Urine WBC 0-5 Ur Squamous Epith Cells 0-2 Urine Bacteria 4+ Hyaline Casts 0-2 Ethyl Alcohol Imaging Radiologist's Impressions: Impressions Head CT 05/17/23 00:18 IMPRESSION: * No acute intracranial pathology. * Chronic right basal ganglial infarct and mild background white matter small vessel ischemic changes. This critical result was discussed with Dr Manan Perkins at 05/17/2023 12:25 AM and it was ascertained that the content and urgency of the report was understood at the time of direct communication. Head/Neck CTA 05/17/23 00:44 IMPRESSION: * No large vessel occlusion or hemodynamically significant stenosis within the intracranial or extracranial arterial vasculature. * Stable chronic right basal ganglial infarct and mild background white matter small vessel ischemic changes. * Scattered centrilobular nodular opacities with areas of tree-in-bud nodularity throughout the upper lungs suggestive of infectious or inflammatory bronchiolitis. This critical result was discussed with Dr Manan Perkins at 05/17/2023 1:05AM and it was ascertained that the content and urgency of the report was understood at the time of direct communication. Assessment and Plan (1) Left sided numbness: Status: Acute (2) Hypertension, essential: Status: Acute (3) Left hemiparesis: Status: Acute (4) Stroke: Qualifiers: CVA mechanism: other Qualified Code(s): I63.89 - Other cerebral infarction Status: Inactive Plan 63-year-old white female with a history of hypertension, ovarian cancer (1999), cholecystectomy, and stroke with residual left hemiparesis here with: 1. Transient episode of left sided numbness - symptoms had already resolved by the time I got to see her - doubt that this represents a new stroke - she is not on aspirin (allergic) - resume Plavix and Atorvastatin - will consult Neurology before ordering any additional tests 2. Hypertension - BP up to 151 mmHg - resume Propranolol 3. Anxiety and depression - resume Buspirone, Lexapro, Mirtazapine and Quetiapine Total time managing care of this patient today: 55 minutes. Quality Stroke Does the patient have a stroke diagnosis?: Yes Reason for No Anti-thrombotic by Day Two: N/A - Med Ordered VTE Prior VTE?: No VTE Risk Level:: Medical - moderate - high VTE Device Contraindication: N/A - Device Ordered VTE Drug Contraindication: N/A - Med Ordered
[2023-05-17 07:22] VITALS: BP 151/110; PULSE 92; RESP 14; TEMP 36.7; O2SAT 99
--- NOTE | 2023-05-17 07:43 | MHC.CM.PN ---
Met with patient in regards to discharge planning. Patient lives alone, ambulates independently and had no services prior to coming to the hospital. Patient's PCP was Dr Vega but she hadn't seen him in over a year so he will not see her as a patient. Patient has a new PCP appointment in December. This is the earliest her daughter could help her arrange an appointment. Patient suffered from a CVA on . Patient went to [facility] after her CVA and returned home. Patient's psychiatrist has been prescribing her maintenance medication until her scheduled appointment in December. Obs notice explained and signed. Copy of HCP requested from [facility]. Patient's brother will transport her home when medically stable. Patient is requesting to be d/c'd home. Yuliet KHAN made aware. Continue to monitor for d/c needs.
--- NOTE | 2023-05-17 09:10 | PC.NURSE ---
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 PT ADVICED ABOUT THE OF RISKS OF CVA S/SX RETURN AND . PT IS STILL ADAMANT ABOUT LEAVING AMA.
[2023-05-17 09:28] VITALS: BP 172/94; PULSE 108; RESP 16; TEMP 36.7; O2SAT 95
--- NOTE | 2023-05-17 10:57 | PM.DS ---
DS: Providers Provider Date of Service: 05/17/23 Date of admission: 05/17/23 06:07 Primary care physician: None Physician Consults: 05/17/23 07:40 Consult to Neurology Routine Consulting Provider: [facility] Reason for consultation: left sided numbness Has provider been notified: No DS: Diagnosis Discharge Diagnosis (1) Left sided numbness: Status: Acute (2) Hypertension, essential: Status: Acute (3) Left hemiparesis: Status: Acute (4) Stroke: Status: Inactive DS: Summary Hospital Course Hospital Course: HP as per admiting provider. 63-year-old white female with a history of hypertension, ovarian cancer (1999), cholecystectomy, and stroke with residual left hemiparesis who presents to the emergency department for evaluation of left arm and leg numbness that started 2 hours prior to her presentation. She at baseline has residual left sided weakness which was unchanged. The only new symptoms was the numbness, first involving the LUE and then the LLE. This got her worried since she thought that she may be having another stroke (this is what happened too when she had the stroke) hence her decision to come in for evaluation. She states that since her last stroke she has recovered almost full strength in her left leg but still has some weakness in her left arm. EMS reported a blood pressure 160/100, sinus rhythm on the EKG, O2 saturation 98% on room air with a point of care glucose of 197. However by the time I saw her, the numbness had resolved and initial work up done in the emergency room was unrevealing with both CT brain and CTA head and neck not showing any acute intra-cranial pathology. 63 year old women admitted for TIA/stroke like symptoms. She had and neck CTA which was negative for large vessel occlusion or significant stenosis. It did ahow chronic right basal ganglia infarct. She had an outstanding consultation for neurology and her elevated blood pressure readings needed to be addressed however patient reported that she had to leave right away. She was alert and oriented x 3. Patient was waiting for her brother to pick her. Patient reported that she should return to the emergency department if symptoms persist or worsen. She stated understanding Time Attestation Discharge coordination time: Greater than 30 minutes Quality: Safe Use of Opioids Does Pt have an Active Cancer Diagnosis on the Problem List?: No Quality: Stroke Does the patient have a stroke diagnosis?: No Physical Exam Vital Signs: Vital Signs: Last Vital Signs Temp 98.1 F 05/17/23 09:28 Pulse 108 H 05/17/23 09:28 Resp 16 05/17/23 09:28 BP 172/94 H 05/17/23 09:28 Pulse Ox 95 05/17/23 09:28 O2 Del Method Room Air 05/17/23 09:28 BMI result Body Mass Index 30.9 Appearing in no acute distress head is normocephalic atraumatic eyes pupils are PERRLA sclera is anicteric mouth throat mucous membranes are intact and moist neck is supple no lymphadenopathy, no JVD noted lung sounds are clear to auscultation heart regular rate rhythm, clear S1, S2 positive bowel sounds, abdomen is soft, nontender neuro patient is alert x3, no focal deficits DS: Data Data Completed and Pending Labs on day of discharge: Laboratory Results - last 24 hr 05/16/23 05/17/23 05/17/23 23:58 00:01 01:01 WBC 9.7 RBC 4.92 Hgb 13.3 Hct 40.6 MCV 82.5 MCH 27.0 MCHC 32.8 RDW 14.9 Plt Count 348 MPV 8.8 L Immature Gran % (Auto) 0.3 Neut % (Auto) 70.5 Lymph % (Auto) 18.7 L [place] % (Auto) 9.0 Eos % (Auto) 0.9 Baso % (Auto) 0.6 Lymph # (Auto) 1.8 [place] # (Auto) 0.9 Eos # (Auto) 0.1 Baso # (Auto) 0.1 Abs Immat Gran (auto) 0.03 Absolute Neuts (auto) 6.8 Absolute Nucleated RBC 0.000 Nucleated RBC % (auto) 0.0 PT 10.1 L Whole Blood PT 13.6 H INR 0.8 L Whole Blood INR 1.0 APTT 32.1 Sodium 138 Potassium 4.4 Chloride 108 Carbon Dioxide 22 Anion Gap 12 BUN 27 H Creatinine 0.89 Estim Creat Clear Calc 61.1 Estimated GFR > 60 POC Glucose 156 H Random Glucose 122 H Calcium 9.8 Total Bilirubin 0.3 Direct Bilirubin 0.1 AST 17 ALT 21 Alkaline Phosphatase 91 Total Creatine Kinase 44 Troponin I High Sens < 2.7 Total Protein 6.8 Albumin 4.3 Urine Color Urine Appearance Urine pH Ur Specific [place] Urine Protein Urine Glucose (UA) Urine Ketones Urine Blood Urine Nitrite Ur Leukocyte Esterase Urine RBC Urine WBC Ur Squamous Epith Cells Urine Bacteria Hyaline Casts Ethyl Alcohol < 10 05/17/23 01:49 WBC RBC Hgb Hct MCV MCH MCHC RDW Plt Count MPV Immature Gran % (Auto) Neut % (Auto) Lymph % (Auto) [place] % (Auto) Eos % (Auto) Baso % (Auto) Lymph # (Auto) [place] # (Auto) Eos # (Auto) Baso # (Auto) Abs Immat Gran (auto) Absolute Neuts (auto) Absolute Nucleated RBC Nucleated RBC % (auto) PT Whole Blood PT INR Whole Blood INR APTT Sodium Potassium Chloride Carbon Dioxide Anion Gap BUN Creatinine Estim Creat Clear Calc Estimated GFR POC Glucose Random Glucose Calcium Total Bilirubin Direct Bilirubin AST ALT Alkaline Phosphatase Total Creatine Kinase Troponin I High Sens Total Protein Albumin Urine Color Yellow Urine Appearance Clear Urine pH 5.0 Ur Specific [place] >= 1.030 H Urine Protein Negative Urine Glucose (UA) Negative Urine Ketones Negative Urine Blood Negative Urine Nitrite Positive H Ur Leukocyte Esterase Negative Urine RBC 0-2 Urine WBC 0-5 Ur Squamous Epith Cells 0-2 Urine Bacteria 4+ Hyaline Casts 0-2 Ethyl Alcohol Discharge Plan Discharge Anticipated Discharge Date/Time: 05/17/23 10:55 Patient Disposition: Left Against Medical Advice Discharge Diagnosis: Left sided weakness Referrals: Physician,None [Primary Care Provider] - 1 Week Discharge Medications: No Action atorvastatin 40 mg tablet 40 mg PO QPM hydroxyzine HCl 50 mg tablet 50 mg PO TID PRN (Reason: panic attack) clopidogrel 75 mg tablet 75 mg PO QPM propranolol 10 mg tablet 10 mg PO BID buspirone 30 mg tablet 30 mg PO BID mirtazapine 45 mg tablet 45 mg PO BEDTIME gabapentin 100 mg capsule 100 mg PO TID escitalopram oxalate 20 mg tablet 20 mg PO QAM quetiapine 50 mg tablet 50 mg PO BID Discharge Orders: Discharge Order (Routine); Ordered 05/17/23 Ordered By: Yuliet Verdugo Diet: Advance to usual diet Activity on Discharge: As tolerated Stand Alone Forms: Against Medical Advice Care Plan Goals: Left against medical advice Health Concerns: Left sided weakness Plan of Treatment: Patient did not complete workup for TIA/stroke-like symptoms. She should return to the emergency department if symptoms persist or worsen Assessment: For summary Discharge Date/Time: 05/17/23 09:43
--- NOTE | 2023-05-17 11:03 | PHA.MEDREC ---
Pharmacy Consult ? Medication Reconciliation Pharmacy has completed the medication reconciliation. used claim history to confirm medications. patient could not remember names and kept telling me she wanted to leave.
== END 2023-05-17 09:43 | disposition left against medical advice (07) ==
LOC: HO.ED 05-17 01:43 → HO.EDOVER 05-17 06:13
PROVIDERS: Admitting Provider Internal Medicine; Emergency Provider Emergency Medicine Emergency Medical Services; Visit Provider Nurse Practitioner Acute Care
DX: I69.354 Hemiplegia and hemiparesis following cerebral infarction affecting left non-dominant side (principal); I63.89 Other cerebral infarction; I10 Essential (primary) hypertension; F41.9 Anxiety disorder, unspecified; R20.0 Anesthesia of skin; Z53.29 Procedure and treatment not carried out because of patient's decision for other reasons; Z79.899 Other long term (current) drug therapy; Z85.43 Personal history of malignant neoplasm of ovary
CPT/HCPCS: 36415; 70450; 70496; 70498; 80048; 80076; 80307; 81001; 82550; 82947; 84484; 85025; 85610; 85730; 87086; 87088; 87186; 93005; 99222; 99285; Q9967

== ENCOUNTER → 2023-05-16 23:59 | Outpatient (BNV) | payer MEDICARE, MEDICAID, SELFPAY | PROVIDERS: Admitting Provider Internal Medicine; Emergency Provider Emergency Medicine Emergency Medical Services; Visit Provider Internal Medicine Cardiovascular Disease | DX: R94.31 Abnormal electrocardiogram [ECG] [EKG] (principal) | CPT/HCPCS: 93010 ==

== ENCOUNTER → 2023-05-17 06:07 | Outpatient (BNV) | payer MEDICARE, MEDICAID, SELFPAY | PROVIDERS: Admitting Provider Internal Medicine; Emergency Provider Emergency Medicine Emergency Medical Services; Visit Provider Internal Medicine | DX: R20.0 Anesthesia of skin (principal); I10 Essential (primary) hypertension; G81.94 Hemiplegia, unspecified affecting left nondominant side; I63.89 Other cerebral infarction | CPT/HCPCS: 99223; 99499 ==

== ENCOUNTER 2023-06-29 08:45 | Outpatient (AMB) | payer MEDICARE, MEDICAID, SELFPAY ==
--- NOTE | 2023-06-29 09:09 | A.OFFPC_ITS ---
Vital Signs 06/29/23 09:14 Height 5 ft 0.63 in Weight 156 lb 4 oz BMI 29.9 BP 130/78 Blood Pressure Location Lt brachial Position Sitting Pulse 75 Pulse Source Pulse Oximeter Pulse Oximetry (%) 97 Oxygen Delivery Method Room Air Intake Visit Reasons: Fowl Blood Tester Re-establish Care([facility] [place] 05/16/23 Stroke ?) Intake Note: The individual is present for a follow-up appointment following hospital discharge. They were released from [facility] on May 17, 2023, following a stroke and are now seeking to resume care with a new primary care physician. The patient was previously under the care of Dr. Vega. Mortgage Protection Sales Required: No Accompanied by: Self / Same As Patient Allergies aspirin [ASA] Allergy (Intermediate, Verified 06/29/23 09:34) GI UPSET, nausea and vomiting calcium carbonate [Bufferin] Allergy (Unknown, Verified 06/29/23 09:34) Rash magnesium [Bufferin] Allergy (Unknown, Verified 06/29/23 09:34) Rash butter Allergy (Unknown, Uncoded 06/29/23 09:19) vomiting milk Allergy (Unknown, Uncoded 06/29/23 09:19) vomiting Medication List - Last Reconciled 06/29/23 by Kalpesh Browne PA-C atorvastatin 40 mg PO QPM buspirone 30 mg PO BID clopidogrel 75 mg PO QPM escitalopram oxalate 20 mg PO QAM gabapentin 100 mg PO TID hydroxyzine HCl 50 mg PO TID PRN mirtazapine 45 mg PO BEDTIME propranolol 10 mg PO BID quetiapine 50 mg PO BID Tobacco use date assessed: 06/29/23 Dental Screening Dental Screen Date: 06/29/23 Did you have a dental visit in the last 12 months?: No Did you have a dental problem in the last 6 months where you did not have access to dental care?: No Was dental information given to patient?: Patient has dentist HPI Fowl Blood Tester Re-establish Care([facility] [place] 05/16/23 Stroke ?) HPI Details Patient is a 63-year-old female here today for an establish care visit. This is the 1st time meeting this 63 year female with a past medical history significant for hypertension, ovarian cancer in 1999, CVA. She was recently se en at [facility] for acute left upper and left lower extremity numbness and tingling. She at baseline already has left hemiparesis from previous stroke. CTA head and neck without any large vessel occlusions. She was to follow-up in patient with Neurology though left against medical advice. Laboratory Tests 05/17/23 01:01 RBC 4.92 Creatinine 0.89 Random Glucose 122 H Ethyl Alcohol < 10 PFSH Social History (Updated 06/29/23 @ 09:37 by Kalpesh Browne PA-C) Housing: Apartment Alcohol intake: never Patient Tobacco Use Status: Current everyday Tobacco user Tobacco use type: Cigarette Cigarettes Per Day: 6 Years Smoked: 45 e-Cigarette/Vaping Use: Never Used Substance Use Type: Marijuana service: No Current occupational status: disabled Cognitive needs: No Hearing needs: No Vision needs: No Questionnaire PHQ-9 Over the last 2 weeks, how often have you been bothered by any of the following problems? 1. Little interest or pleasure in doing things: several days 2. Feeling down, depressed, or hopeless: several days 3. Trouble falling or staying asleep, or sleeping too much: several days 4. Feeling tired or having little energy: several days 5. Poor appetite or overeating: several days 6. Feeling bad about yourself - or that you are a failure or have let yourself or your family down: more than half the days 7. Trouble concentrating on things, such as reading the newspaper or watching television: several days 8. Moving or speaking so slowly that other people could have noticed. Or the opposite - being so fidgety or restless that you have been moving around a lot more than usual: not at all 9. Thoughts that you would be better off or of hurting yourself in some way: not at all Total score: 8 Depression Screening Interpretation: Positive Depression Screening Follow-up: Existing condition and In treatment Depression Screening Done: Yes 54335 - PHQ-9 Billing: Yes Source: Developed by Drs. Bret Childers, Renu Cazares, Alexandru White and colleagues, with an educational elizabeth from [employer]. Thrive Questionnaire Date Thrive assessed: 06/29/23 I am a: Patient What is your living situation today?: I have a steady place to live Within the past 12 months, did the food you bought not last and you didn't have the money to get more?: Never true Within the past 12 months, did you worry whether your food would run out before you got money to buy more?: Never true Do you have trouble paying for medicines?: No Do you have trouble getting transportation to medical appointments?: No Do you have trouble paying your heating and electricity bill?: No Do you have trouble taking care of your child, family member or friend?: No Do you have trouble with day-to-day activities such as bathing, preparing meals, shopping, managing finances, etc.?: No Are you currently unemployed and looking for a job?: No Are you interested in more education?: No Please select the resources that you would like help with: None Currently or been in a relationship where the following occur: no concerns reported THRIVE Score: 0 AUDIT C Alcohol Use Questionnaire (AUDIT-C) 1. How often do you have a drink containing alcohol?: Never 3. How often do you have six or more drinks on one occasion?: Never Total Score: 0 Score Reviewed/Action Taken: Yes (Pt does not drink. ) KURT-7 AMB Questionnaire KURT-7 Date KURT - 7 assessed: 06/29/23 Feeling nervous, anxious, or on edge: 3 = Nearly every day Not being able to stop or control worryin = Nearly every day Worrying too much about different things: 3 = Nearly every day Trouble relaxin = Several days Being so restless that it is hard to sit still: 1 = Several days Becoming easily annoyed or irritable: 2 = More than half the days Feeling afraid as if something awful might happen: 1 = Several days Total KURT-7 score (0-4 normal; 5-9 mild; 10-14 moderate; 15-21 severe): 14 Source: Developed by Drs. Bret Childers, Renu Cazares, Alexandru White and colleagues, with an educational elizabeth from [employer]. KURT-7 Assessment Billing KURT-7 Assessment Tool: KURT-7 Assessment 08956 Physical exam (Primary Care) Vital Signs: Last Vital Signs Pulse 75 06/29/23 09:14 BP 130/78 06/29/23 09:14 Pulse Ox 97 06/29/23 09:14 Oxygen Delivery Method Room Air 06/29/23 09:14 BMI result Body Mass Index 29.9 Tobacco/Smoking Status: Tobacco use Status Tobacco use date assessed 06/29/23 06/29/23 09:26 Patient Tobacco Use Status Current everyday Tobacco 06/29/23 09:37 Tobacco use type Cigarette 06/29/23 09:37 e-Cigarette/Vaping Use Never Used 06/29/23 09:37 Are you ready to quit: No Tobacco cessation counseling provided: Yes Items discussed: Nicotine replacement and QuitWorks Relapse Prevention: discussed the importance of a supportive environment, discussed negative mood or depression after quitting, weight gain after smoking is common and discussed dietary, exercise and/or lifestyle changes Number of minutes spent counselin CPT code: 22058 - 4-10 Minutes PHQ-9: PHQ-9 Score PHQ-9: Total score 8 06/29/23 10:05 Depression Screening Interpretation: Positive Depression Screening Follow-up: Existing condition and In treatment Thrive Assessment: Date of Thrive Assessment Date Thrive assessed 06/29/23 06/29/23 09:26 Currently or been in a relationship where the following occur: no concerns reported Immunizations pneumoc 20-jaiden conj-dip cr(PF) 0.5 mL IM syringe Performing Provider: Kalpesh Browne PA-C Performing Location: [facility] Administered by: MARIA E [place] on 06/29/23 10:05 Dose Route Admin Location Dispensed Lot Number Expiration Date [facility] [employer] Clerk 0.5 mL IM Left Deltoid 0.5 mL [id number] 07/29/24 4217-8863-25 [employer] VIS Given Date VIS Provided VIS Publication Date 06/29/23 Single Vaccine 21 Eligibility Eligibility Date Funding Source Not VFC Eligible 06/29/23 Private Boostrix Tdap 2.5 Lf unit-8 mcg-5 Lf/0.5 mL intramuscular syringe Performing Provider: Kalpesh Browne PA-C Performing Location: [facility] [facility] Administered by: MARIA E [place] on 06/29/23 10:05 Dose Route Admin Location Dispensed Lot Number Expiration Date [employer] 0.5 mL IM Left Deltoid 0.5 mL [id number] 05/05/25 37058-579-11 Tymphany VIS Given Date VIS Provided VIS Publication Date 06/29/23 Single Vaccine 21 Eligibility Eligibility Date Funding Source Not VFC Eligible 06/29/23 Private Assessment and Plan Assessment & Plan (1) Hypertension, essential: Code(s): I10 - Essential (primary) hypertension Plan: Patient's blood pressure acceptable today in office. Was elevated during hospitalization. Will add on lisinopril for better blood pressure control. Advised to monitor blood pressure at home. Given a paper Rx for blood pressure monitor (2) CVA (cerebral vascular accident): Code(s): I63.9 - Cerebral infarction, unspecified Qualifiers: CVA mechanism: stenosis Laterality of affected vessel: unspecified Precerebral and cerebral artery: posterior cerebral artery Qualified Code(s): I63.539 - Cerebral infarction due to unspecified occlusion or stenosis of unspecified posterior cerebral artery Plan: As per HPI patient seems to have a CVA with left-sided temporary hemiparesis. She seems to have regained full strength. She has not interested in a neurology follow-up or physical therapy. Will try to reduce risk factors for recurrent stroke. She does understand she needs to quit smoking and control blood pressure. Again will add on lisinopril for better blood pressure control. (3) Tobacco dependence: Code(s): F17.200 - Nicotine dependence, unspecified, uncomplicated Plan: Patient does understand she needs to quit smoking. She does have nicotine patches available to her at home though has a difficult time quitting. Offered medication though she declines at this time (4) Left hemiparesis: Code(s): G81.94 - Hemiplegia, unspecified affecting left nondominant side Plan: Recover from her left-sided hemiparesis. Has equal crew member strength on physical exam today. (5) KURT (generalized anxiety disorder): Code(s): F41.1 - Generalized anxiety disorder Plan: Patient's KURT-7 score positive for anxiety which has been existing condition for her. Patient is followed by a psychiatrist who manages her mental health medications. She does report suffering with severe panic disorder since childhood. (6) MDD (major depressive disorder), recurrent episode, moderate: Code(s): F33.1 - Major depressive disorder, recurrent, moderate Plan: Patient's PHQ-9 score positive for depression which has been existing condition for her. Patient is followed by psychiatrist Orders: Orders Microalbumin, Random (w Creat) 06/29/23 I10 - Essential (primary) hypertension Pneumococcal 20 Immunization 06/29/23 I63.539 - Cerebral infarction due to unspecified occlusion or stenosis of unspecified posterior cerebral artery, Z23 - Encounter for immunization Lipid Panel 06/29/23 I63.539 - Cerebral infarction due to unspecified occlusion or stenosis of unspecified posterior cerebral artery Comprehensive [place]. Panel Fast 06/29/23 I63.539 - Cerebral infarction due to unspecified occlusion or stenosis of unspecified posterior cerebral artery TDaP Immunization 06/29/23 I63.539 - Cerebral infarction due to unspecified o cclusion or stenosis of unspecified posterior cerebral artery, Z23 - Encounter for immunization Medications: New miscellaneous medical supply (Blood Pressure Cuff) As directed 1 ea 0RF I10 - Essential (primary) hypertension atorvastatin 40 mg PO QPM 90 tabs 1RF I63.539 - Cerebral infarction due to unspecified occlusion or stenosis of unspecified posterior cerebral artery lisinopril 10 mg PO DAILY 90 days 90 tabs 1RF I10 - Essential (primary) hypertension Changed From gabapentin 100 mg PO TID I63.539 - Cerebral infarction due to unspecified occlusion or stenosis of unspecified posterior cerebral artery To gabapentin 100 mg PO TID 90 days 270 caps 1RF I63.539 - Cerebral infarction due to unspecified occlusion or stenosis of unspecified posterior cerebral artery From clopidogrel 75 mg PO QPM I63.539 - Cerebral infarction due to unspecified occlusion or stenosis of unspecified posterior cerebral artery To clopidogrel 75 mg PO QPM 90 days 90 tabs 1RF I63.539 - Cerebral infarction due to unspecified occlusion or stenosis of unspecified posterior cerebral artery Coding Level of Care Code New Pt Level 4 (70000) Diagnoses Hypertension, essential I10 Cerebrovascular accident (CVA) due to stenosis of posterior cerebral artery, unspecified blood vessel laterality I63.539 CVA mechanism: stenosis Laterality of affected vessel: unspecified Precerebral and cerebral artery: posterior cerebral artery Tobacco dependence F17.200 Left hemiparesis G81.94 KURT (generalized anxiety disorder) F41.1 MDD (major depressive disorder), recurrent episode, moderate F33.1 Additional Codes KURT-7 Assessment Billing - KURT-7 Assessment Tool: KURT-7 Assessment 02522 ([id number]) Vital Signs *Quality* - CPT code: 39560 - 4-10 Minutes ([id number])
[2023-06-29 09:14] VITALS: BP 130/78; PULSE 75; O2SAT 97; BMI 29.9
== END 2023-06-29 10:07 | disposition home or self-care (01) ==
PROVIDERS: Visit Provider Physician Assistant
DX: I10 Essential (primary) hypertension (principal); I63.539 Cerebral infarction due to unspecified occlusion or stenosis of unspecified posterior cerebral artery; G81.94 Hemiplegia, unspecified affecting left nondominant side; F33.1 Major depressive disorder, recurrent, moderate; F17.200 Nicotine dependence, unspecified, uncomplicated; F41.1 Generalized anxiety disorder
CPT/HCPCS: 90471; 90677; 90715; 99204

== ENCOUNTER 2023-07-14 08:05 | Outpatient (REF) | payer MEDICARE, MEDICAID, SELFPAY ==
[2023-07-14 12:22] LABS: Alanine Aminotransferase 21 U/L (0-31); Albumin Level 4.5 g/dL (3.5-5.0); Alkaline Phosphatase 92 U/L (39-117); Anion Gap 13 (12-20); Aspartate Amino Transferase 18 U/L (5-31); Bilirubin Total 0.4 mg/dL (0.0-1.0); Blood Urea Nitrogen 18 mg/dL (9-16); Calcium 9.9 mg/dL (8.4-10.2); Carbon Dioxide 25 mmol/L (22-29); Chloride 108 mmol/L (96-108); Cholesterol 138 mg/dL (<200); Estimated Glomerular Filt Rate 49; Glucose Fasting 197 mg/dL (60-99); HDL Cholesterol 54 mg/dL (>40); LDL Cholesterol Calculated 62 mg/dL (<100); Potassium 4.2 mmol/L (3.3-5.1); Sodium 142 mmol/L (135-145); Total Protein 7.5 g/dL (6.5-8.0); Triglycerides 111 mg/dL (<150)
== END 2023-07-14 08:06 | disposition home or self-care (01) ==
LOC: HO.HMGCLDS 08:05
PROVIDERS: PCP Physician Assistant; Visit Provider Physician Assistant
DX: I63.539 Cerebral infarction due to unspecified occlusion or stenosis of unspecified posterior cerebral artery (principal)
CPT/HCPCS: 36415; 80053; 80061

== ENCOUNTER 2023-07-16 08:02 | Outpatient (REF) | payer MEDICARE, MEDICAID, SELFPAY ==
[2023-07-16 11:36] LABS: Estimated Average Glucose 123 mg/dL; Hemoglobin A1c % 5.9 % (<6.0)
[2023-07-16 12:28] LABS: Creatinine Urine 110.68 mg/dL; Microalbum/Creatinine Ratio Ur 9.9 ug/mg cr (<30)
== END 2023-07-16 08:03 | disposition home or self-care (01) ==
LOC: HO.HMGCLDS 08:02
PROVIDERS: PCP Physician Assistant; Visit Provider Physician Assistant
DX: R73.01 Impaired fasting glucose (principal); I10 Essential (primary) hypertension
CPT/HCPCS: 36415; 82043; 82570; 83036

== ENCOUNTER 2023-09-27 13:43 | Outpatient (AMB) | payer MEDICARE, MEDICAID, SELFPAY ==
[2023-09-27 13:56] VITALS: BP 106/58; PULSE 74; O2SAT 96; BMI 27.9
--- NOTE | 2023-09-27 13:56 | A.OFFPC_ITS ---
Vital Signs 09/27/23 13:56 Height 5 ft 0.63 in Weight 146 lb BMI 27.9 BP 106/58 L Blood Pressure Location Lt brachial Position Sitting Pulse 74 Pulse Source Pulse Oximeter Pulse Oximetry (%) 96 Oxygen Delivery Method Room Air Intake Visit Reasons: f/u HTN/ CVA Take Off Worker Required: No Accompanied by: Self / Same As Patient Allergies aspirin [ASA] Allergy (Intermediate, Verified 09/27/23 14:22) GI UPSET, nausea and vomiting calcium carbonate [Bufferin] Allergy (Unknown, Verified 09/27/23 14:22) Rash magnesium [Bufferin] Allergy (Unknown, Verified 09/27/23 14:22) Rash butter Allergy (Unknown, Uncoded 09/27/23 13:59) vomiting milk Allergy (Unknown, Uncoded 09/27/23 13:59) vomiting Medication List - Last Reconciled 09/27/23 by Kalpesh Browne PA-C atorvastatin 40 mg PO QPM buspirone 30 mg PO BID 90 days clopidogrel 75 mg PO QPM 90 days escitalopram oxalate 20 mg PO QAM gabapentin 100 mg PO TID 90 days hydroxyzine HCl 50 mg PO TID PRN lisinopril 10 mg PO DAILY 90 days mirtazapine 45 mg PO BEDTIME miscellaneous medical supply (Blood Pressure Cuff) As directed propranolol 10 mg PO BID quetiapine 50 mg PO BID Tobacco use date assessed: 06/29/23 Dental Screening Dental Screen Date: 06/29/23 HPI f/u HTN/ CVA HPI Details Patient is a 63-year-old female here today for follow-up visit. Patient has a past medical history significant for CVA , major depressive disorder, anxiety, tobacco dependency, hypertension. .. Hypertension: Blood pressure acceptable today in office. She continues on lisinopril and propranolol. She otherwise denies any chest discomfort, dizziness or headaches. . CVA: Continues with goal blood sugar. He has no further neurological deficits on left side. Most recent lipid panel showing excellent control over total cholesterol and LDL. Laboratory Tests 05/17/23 07/14/23 07/16/23 01:01 08:12 07:30 RBC 4.92 Hemoglobin A1c % Cholesterol 138 LDL Cholesterol, C alc 62 Urine Microalbumin 11.0 07/16/23 08:12 RBC Hemoglobin A1c % 5.9 Cholesterol LDL Cholesterol, C alc Urine Microalbumin [facility] Social History Housing: Apartment Alcohol intake: never Patient Tobacco Use Status: Current everyday Tobacco user Tobacco use type: Cigarette Cigarettes Per Day: 6 Years Smoked: 45 e-Cigarette/Vaping Use: Never Used Substance Use Type: Marijuana service: No Current occupational status: disabled Cognitive needs: No Hearing needs: No Vision needs: No Questionnaire Thrive Questionnaire Date Thrive assessed: 06/29/23 KURT-7 AMB Questionnaire KURT-7 Date KURT - 7 assessed: 06/29/23 Source: Developed by Drs. Bret Childers, Renu Cazares, Alexandru White and colleagues, with an educational elizabeth from [employer]. Review of Systems Const Denies headache(s) Eyes Denies loss of vision ENT Denies vertigo, Denies dizziness, Denies headache(s) and Denies sore throat Card Denies chest pain, Denies leg edema and Denies lightheadedness Resp Denies cough, Denies hemoptysis and Denies wheezing GI Denies abdominal pain, Denies melena, Denies constipation, Denies diarrhea and Denies vomiting Denies urinary frequency, Denies dysuria and Denies urinary urgency Musc Denies arthralgias, Denies joint swelling, Denies numbness and Denies tingling Neuro Denies Abnormal speech present, Denies behavioral changes, Denies vertigo, Denies dizziness, Denies headache(s), Denies loss of vision, Denies memory loss, Denies numbness and Denies tingling Psych Denies anxiety, Denies behavioral changes, Denies depression, Denies memory loss and Denies panic attacks Kaushik/Lymph Denies easy bleeding and Denies easy bruising Aller/Immun Denies wheezing Physical exam (Primary Care) Vital Signs: Last Vital Signs Pulse 74 09/27/23 13:56 BP 106/58 L 09/27/23 13:56 Pulse Ox 96 09/27/23 13:56 Oxygen Delivery Method Room Air 09/27/23 13:56 BMI result Body Mass Index 27.9 Tobacco/Smoking Status: Tobacco use Status Tobacco use date assessed 06/29/23 09/27/23 14:01 Patient Tobacco Use Status Current everyday Tobacco 09/27/23 14:01 Tobacco use type Cigarette 09/27/23 14:01 e-Cigarette/Vaping Use Never Used 09/27/23 14:01 Are you ready to quit: No Tobacco cessation counseling provided: Yes Items discussed: Nicotine replacement Relapse Prevention: discussed the importance of a supportive environment, discussed negative mood or depression after quitting, weight gain after smoking is common and discussed dietary, exercise and/or lifestyle changes Number of minutes spent counselin CPT code: 85474 - 4-10 Minutes Thrive Assessment: Date of Thrive Assessment Date Thrive assessed 06/29/23 09/27/23 14:01 Const General: healthy appearing, no acute distress, alert and awake Nutritional Appearance: well nourished Orientation/consciousness: oriented to person, oriented to place and oriented to time HENMT Ears: TM's normal bilaterally General nose exam: Normal nasal mucous membranes and turbinates present Eyes Conjunctivae: conjunctivae normal Sclerae: sclerae normal Pupils: Equal, round and reactive pupils present Neck Neck: Yes no lymphadenopathy and Yes no JVD Thyroid: Thyroid normal Carotids: no bruits Resp Effort & Inspection: normal respiratory effort and not tachypneic Auscultation: no crackles, no rales, no rhonchi and no wheezes Cardio Rate: regular rate Rhythm: regular rhythm Heart sounds: no murmurs and normal S1 and S2 GI Palpation (GI): Soft to palpation, nontender, no hepatomegaly and no splenomegaly Auscultation: normal bowel sounds Skin General skin exam: no rashes or lesions noted and dry skin Neuro General: oriented to person, oriented to place and oriented to time Cranial nerves: Yes Equal, round and reactive pupils present Speech: No Abnormal speech present Gait exam (Neuro): Normal gait present Motor exam (neuro): no tremor noted Extrem Right upper extremity: full ROM Left upper extremity: full ROM Right lower extremity: full ROM; no edema Left lower extremity: full ROM; no edema Psych Mental Status: mental status grossly normal Speech and movement: Normal speech and movement present Affect: normal affect Attitude: cooperative Thought process: Normal thought process present Assessment and Plan Assessment & Plan (1) Hypertension, essential: Code(s): I10 - Essential (primary) hypertension Plan: Patient's blood pressure acceptable today in office. Will continue current antihypertensive medication. Advised to monitor blood pressure at home. Goal blood pressures to be below 140/90 Given a paper Rx for blood pressure monitor (2) CVA (cerebral vascular accident): Code(s): I63.9 - Cerebral infarction, unspecified Qualifiers: CVA mechanism: stenosis Precerebral and cerebral artery: posterior cerebral artery Laterality of affected vessel: unspecified Qualified Code(s): I63.539 - Cerebral infarction due to unspecified occlusion or stenosis of unspecified posterior cerebral artery Plan: As per HPI patient seems to have a CVA with left-sided temporary hemiparesis. She seems to have regained full strength. She has not interested in a neurology follow-up or physical therapy. Will try to reduce risk factors for recurrent stroke. She does understand she needs to quit smoking and control blood pressure. Again will add on lisinopril for better blood pressure control. (3) Tobacco dependence: Code(s): F17.200 - Nicotine dependence, unspecified, uncomplicated Plan: Patient does understand she needs to quit smoking. She does have nicotine patches available to her at home though has a difficult time quitting. Offered medication though she declines at this time Orders: Orders Lipid Panel 6 Months I63.539 - Cerebral infarction due to unspecified occlusion or stenosis of unspecified posterior cerebral artery Complete Blood Count no Diff 6 Months I63.539 - Cerebral infarction due to unspecified occlusion or stenosis of unspecified posterior cerebral artery Comprehensive [place]. Panel Fast 6 Months I10 - Essential (primary) hypertension Medications: Refilled clopidogrel 75 mg PO QPM 90 days 90 tabs 1RF I63.539 - Cerebral infarction due to unspecified occlusion or stenosis of unspecified posterior cerebral artery lisinopril 10 mg PO DAILY 90 days 90 tabs 1RF I10 - Essential (primary) hypertension atorvastatin 40 mg PO QPM 90 tabs 1RF I63.539 - Cerebral infarction due to unspecified occlusion or stenosis of unspecified posterior cerebral artery Coding Level of Care Code Est Pt Level 4 (89457) Diagnoses Hypertension, essential I10 Cerebrovascular accident (CVA) due to stenosis of posterior cerebral artery, unspecified blood vessel laterality I63.539 CVA mechanism: stenosis Precerebral and cerebral artery: posterior cerebral artery Laterality of affected vessel: unspecified Tobacco dependence F17.200 Additional Codes Vital Signs *Quality* - CPT code: 24437 - 4-10 Minutes ([id number])
== END 2023-09-27 14:35 | disposition home or self-care (01) ==
PROVIDERS: Visit Provider Physician Assistant
DX: I10 Essential (primary) hypertension (principal); I63.539 Cerebral infarction due to unspecified occlusion or stenosis of unspecified posterior cerebral artery; F17.200 Nicotine dependence, unspecified, uncomplicated
CPT/HCPCS: 99214; 99406

== ENCOUNTER 2024-03-30 09:06 | Outpatient (AMB) | payer MEDICARE, MEDICAID, SELFPAY ==
--- NOTE | 2024-03-30 09:06 | MHC.PC.OV ---
Intake Visit Reasons: Dental Clearance/Tooth Extraction Intake Note: Patient is here for a Pre-op for Dental Surgery scheduled with [facility] on unknown . Oil Burner Repairer Required: No Worsted Winder: Not Required per policy Accompanied by: Self / Same As Patient Allergies aspirin [ASA] Allergy (Intermediate, Verified 03/30/24 09:25) GI UPSET, nausea and vomiting calcium carbonate [Bufferin] Allergy (Unknown, Verified 03/30/24 09:25) Rash magnesium [Bufferin] Allergy (Unknown, Verified 03/30/24 09:25) Rash butter Allergy (Unknown, Uncoded 03/30/24 09:25) vomiting milk Allergy (Unknown, Uncoded 03/30/24 09:25) vomiting Medication List - Last Reconciled 03/30/24 by Kalpesh Browne PA-C atorvastatin 40 mg PO QPM buspirone 30 mg PO BID 90 days clopidogrel 75 mg PO QPM 90 days escitalopram oxalate 20 mg PO QAM gabapentin 100 mg PO TID 90 days hydroxyzine HCl 50 mg PO TID PRN lisinopril 10 mg PO DAILY 90 days mirtazapine 45 mg PO BEDTIME miscellaneous medical supply (Blood Pressure Cuff) As directed propranolol 10 mg PO BID quetiapine 50 mg PO BID Tobacco use date assessed: 06/29/23 Dental Screening Dental Screen Date: 06/29/23 HPI Dental Clearance/Tooth Extraction HPI Details Patient is a 63-year-old female being evaluated via telephone a dental preop. Patient has a past medical history significant for CVA , major depressive disorder, anxiety, tobacco dependency, hypertension. .. Hypertension: Blood pressure has been acceptable per patient home readings. She continues on lisinopril and propranolol. She otherwise denies any chest discomfort, dizziness or headaches. . CVA: He has no further neurological deficits on left side. Most recent lipid panel showing excellent control over total cholesterol and LDL. PFSH Family History Other Mental health disorder Social History Housing: Apartment Alcohol intake: never Patient Tobacco Use Status: Current everyday Tobacco user Tobacco use type: Cigarette Cigarette Packs Per Day: 0.5 Cigarettes Per Day: 6 Years Smoked: 45 e-Cigarette/Vaping Use: Never Used Second Hand Smoke Exposure: Yes Substance Use Type: Marijuana service: No Current occupational status: disabled Cognitive needs: No Hearing needs: No Vision needs: No Questionnaire Thrive Questionnaire Date Thrive assessed: 06/29/23 KURT-7 AMB Questionnaire KURT-7 Date KURT - 7 assessed: 06/29/23 Source: Developed by Drs. Bret Childers, Renu Cazares, Alexandru White and colleagues, with an educational elizabeth from [employer]. Review of Systems Const Denies headache(s) Eyes Denies loss of vision ENT Denies vertigo, Denies dizziness, Denies headache(s) and Denies sore throat Card Denies chest pain, Denies leg edema and Denies lightheadedness Resp Denies cough, Denies hemoptysis and Denies wheezing GI Denies abdominal pain, Denies melena, Denies constipation, Denies diarrhea and Denies vomiting Denies urinary frequency, Denies dysuria and Denies urinary urgency Musc Denies arthralgias, Denies joint swelling, Denies numbness and Denies tingling Neuro Denies behavioral changes, Denies vertigo, Denies dizziness, Denies headache(s), Denies loss of vision, Denies memory loss, Denies numbness and Denies tingling Psych Denies anxiety, Denies behavioral changes, Denies depression, Denies memory loss and Denies panic attacks Kaushik/Lymph Denies easy bleeding and Denies easy bruising Aller/Immun Denies wheezing Physical exam (Primary Care) Tobacco/Smoking Status: Tobacco use Status Tobacco use date assessed 06/29/23 03/30/24 09:10 Patient Tobacco Use Status Current everyday Tobacco 03/30/24 09:10 Tobacco use type Cigarette 03/30/24 09:10 e-Cigarette/Vaping Use Never Used 03/30/24 09:10 Thrive Assessment: Date of Thrive Assessment Date Thrive assessed 06/29/23 03/30/24 09:10 Telehealth Telehealth Telehealth Platform: Telephone Location of provider rendering services: practice address Location of patient: address on file Patient Identification confirmed using: Name, : Yes Telehealth method: voice only Patient verbally consented to treatment: Yes Patient verbally consented to billing insurance company: Yes Patient informed of any privacy concerns related to visit: Yes Minutes spent on Phone/Video with Pt.: 11 Coding Level of Care Code Tele Est Pt Level 3 (98458) Diagnoses Pre-op evaluation Z01.818 Cerebrovascular accident (CVA) due to stenosis of posterior cerebral artery, unspecified blood vessel laterality I63.539 CVA mechanism: stenosis Precerebral and cerebral artery: posterior cerebral artery Laterality of affected vessel: unspecified Assessment & Plan Assessment & Plan (1) Pre-op evaluation: Code(s): Z01.818 - Encounter for other preprocedural examination Category: Medical Plan: Patients chronic medical conditions have been stable for quite some time. She will hold her Plavix 5 days prior to her tooth extractions. Advised to restart Plavix 24 hours after extraction or as per dental surgeons request. Patient is medically clear for needed dental extractions (2) CVA (cerebral vascular accident): Code(s): I63.9 - Cerebral infarction, unspecified Category: Medical Qualifiers: CVA mechanism: stenosis Precerebral and cerebral artery: posterior cerebral artery Laterality of affected vessel: unspecified Qualified Code(s): I63.539 - Cerebral infarction due to unspecified occlusion or stenosis of unspecified posterior cerebral artery Plan: As per HPI patient has not had any further CVAs. She continues with blood pressure control with lisinopril and propranolol. Continues on Plavix though will hold for upcoming dental extraction.
== END 2024-03-30 10:05 | disposition home or self-care (01) ==
LOC: HO.HMCH 09:06
PROVIDERS: PCP Physician Assistant; Visit Provider Physician Assistant
DX: Z01.818 Encounter for other preprocedural examination (principal); I63.539 Cerebral infarction due to unspecified occlusion or stenosis of unspecified posterior cerebral artery

== ENCOUNTER → 2024-03-30 09:06 | Outpatient (BNVA) | payer MEDICARE, MEDICAID, SELFPAY | PROVIDERS: PCP Physician Assistant; Visit Provider Physician Assistant ==

== ENCOUNTER 2024-04-13 09:45 | Outpatient (AMB) | payer MEDICARE, MEDICAID, SELFPAY ==
--- NOTE | 2024-04-13 09:47 | MHC.PC.OV ---
Vital Signs 04/13/24 09:51 Height 5 ft 0.63 in Weight 146 lb BMI 27.9 BP 98/68 Blood Pressure Location Lt brachial Position Sitting Pulse 88 Pulse Source Pulse Oximeter Pulse Oximetry (%) 98 Oxygen Delivery Method Room Air Intake Visit Reasons: f/u CVA/ HTN Solar Panel Installation Supervisor Required: No Accompanied by: Self / Same As Patient Allergies aspirin [ASA] Allergy (Intermediate, Verified 04/13/24 10:04) GI UPSET, nausea and vomiting calcium carbonate [Bufferin] Allergy (Unknown, Verified 04/13/24 10:04) Rash magnesium [Bufferin] Allergy (Unknown, Verified 04/13/24 10:04) Rash butter Allergy (Unknown, Uncoded 04/13/24 10:04) vomiting milk Allergy (Unknown, Uncoded 04/13/24 10:04) vomiting Medication List - Last Reconciled 04/13/24 by Kalpesh Browne PA-C atorvastatin 40 mg PO QPM buspirone 30 mg PO BID 90 days clopidogrel 75 mg PO QPM 90 days escitalopram oxalate 20 mg PO QAM gabapentin 100 mg PO TID 90 days hydroxyzine HCl 50 mg PO TID PRN lisinopril 10 mg PO DAILY 90 days mirtazapine 45 mg PO BEDTIME miscellaneous medical supply (Blood Pressure Cuff) As directed propranolol 10 mg PO BID quetiapine 50 mg PO BID Tobacco use date assessed: 04/13/24 Dental Screening Dental Screen Date: 04/13/24 Did you have a dental visit in the last 12 months?: Yes Did you have a dental problem in the last 6 months where you did not have access to dental care?: No Was dental information given to patient?: Patient has dentist HPI f/u CVA/ HTN HPI Details Patient is a 63-year-old female here today for follow-up visit. Patient has a past medical history significant for CVA , major depressive disorder, anxiety, tobacco dependency, hypertension. .. Hypertension: Blood pressure acceptable today in office. She continues on lisinopril and propranolol. She otherwise denies any chest discomfort, dizziness or headaches. . CVA: Continues with goal blood sugar. He has no further neurological deficits on left side. Most recent lipid panel showing excellent control over total cholesterol and LDL. .. Tobacco dependency: Patient does understand she needs to quit smoking though was not willing to do so at this time. We did discuss nicotine replacement though she declines. Laboratory Tests 07/14/23 07/16/23 04/13/24 08:12 08:12 10:01 Hgb A1c (Clinic) 5.9 Hemoglobin A1c % 5.9 Cholesterol 138 LDL Cholesterol, C alc 62 [facility] Surgical History S/P tooth extraction Family History Other Mental health disorder Social History Housing: Apartment Alcohol intake: never Patient Tobacco Use Status: Current everyday Tobacco user Tobacco use type: Cigarette Cigarette Packs Per Day: 0.5 Cigarettes Per Day: 6 Years Smoked: 45 e-Cigarette/Vaping Use: Never Used Second Hand Smoke Exposure: Yes Substance Use Type: Marijuana service: No Current occupational status: disabled Cognitive needs: No Hearing needs: No Vision needs: No Questionnaire PHQ-9 Over the last 2 weeks, how often have you been bothered by any of the following problems? 1. Little interest or pleasure in doing things: not at all 2. Feeling down, depressed, or hopeless: not at all 3. Trouble falling or staying asleep, or sleeping too much: not at all 4. Feeling tired or having little energy: not at all 5. Poor appetite or overeating: not at all 6. Feeling bad about yourself - or that you are a failure or have let yourself or your family down: not at all 7. Trouble concentrating on things, such as reading the newspaper or watching television: not at all 8. Moving or speaking so slowly that other people could have noticed. Or the opposite - being so fidgety or restless that you have been moving around a lot more than usual: not at all 9. Thoughts that you would be better off or of hurting yourself in some way: not at all Total score: 0 Depression Screening Interpretation: Negative Depression Screening Done: Yes 41594 - PHQ-9 Billing: Yes Source: Developed by Drs. Bret Childers, Renu Cazares, Alexandru White and colleagues, with an educational elizabeth from [employer]. Thrive Questionnaire Date Thrive assessed: 04/13/24 I am a: Patient What is your living situation today?: I have a steady place to live Within the past 12 months, did the food you bought not last and you didn't have the money to get more?: Never true Within the past 12 months, did you worry whether your food would run out before you got money to buy more?: Never true Do you have trouble paying for medicines?: No Do you have trouble getting transportation to medical appointments?: No Do you have trouble paying your heating and electricity bill?: No Do you have trouble taking care of your child, family member or friend?: No Do you have trouble with day-to-day activities such as bathing, preparing meals, shopping, managing finances, etc.?: No Are you currently unemployed and looking for a job?: No Are you interested in more education?: No Please select the resources that you would like help with: None Currently or been in a relationship where the following occur: No concerns reported THRIVE Score: 0 AUDIT C Alcohol Use Questionnaire (AUDIT-C) 1. How often do you have a drink containing alcohol?: Never 3. How often do you have six or more drinks on one occasion?: Never Total Score: 0 Score Reviewed/Action Taken: Yes (Pt does not drink. ) KURT-7 AMB Questionnaire KURT-7 Date KURT - 7 assessed: 04/13/24 Feeling nervous, anxious, or on edge: 0 = Not at all Not being able to stop or control worryin = Not at all Worrying too much about different things: 0 = Not at all Trouble relaxin = Not at all Being so restless that it is hard to sit still: 0 = Not at all Becoming easily annoyed or irritable: 0 = Not at all Feeling afraid as if something awful might happen: 0 = Not at all Total KURT-7 score (0-4 normal; 5-9 mild; 10-14 moderate; 15-21 severe): 0 Source: Developed by Drs. Bret Childers, Renu Cazares, Alexandru White and colleagues, with an educational elizabeth from [employer]. KURT-7 Assessment Billing KURT-7 Assessment Tool: KURT-7 Assessment 47568 Review of Systems Const Denies headache(s) Eyes Denies loss of vision ENT Denies vertigo, Denies dizziness, Denies headache(s) and Denies sore throat Card Denies chest pain, Denies leg edema and Denies lightheadedness Resp Denies cough, Denies hemoptysis and Denies wheezing GI Denies abdominal pain, Denies melena, Denies constipation, Denies diarrhea and Denies vomiting Denies urinary frequency, Denies dysuria and Denies urinary urgency Musc Denies arthralgias, Denies joint swelling, Denies numbness and Denies tingling Neuro Denies Abnormal speech present, Denies behavioral changes, Denies vertigo, Denies dizziness, Denies headache(s), Denies loss of vision, Denies memory loss, Denies numbness and Denies tingling Psych Denies anxiety, Denies behavioral changes, Denies depression, Denies memory loss and Denies panic attacks Kaushik/Lymph Denies easy bleeding and Denies easy bruising Aller/Immun Denies wheezing Physical exam (Primary Care) Vital Signs: Last Vital Signs Pulse 88 04/13/24 09:51 BP 98/68 04/13/24 09:51 Pulse Ox 98 04/13/24 09:51 Oxygen Delivery Method Room Air 04/13/24 09:51 BMI result Body Mass Index 27.9 Tobacco/Smoking Status: Tobacco use Status Tobacco use date assessed 04/13/24 04/13/24 10:01 Patient Tobacco Use Status Current everyday Tobacco 04/13/24 09:47 Tobacco use type Cigarette 04/13/24 09:47 e-Cigarette/Vaping Use Never Used 04/13/24 09:47 Are you ready to quit: No Tobacco cessation counseling provided: Yes Items discussed: Nicotine replacement Relapse Prevention: discussed the importance of a supportive environment, discussed negative mood or depression after quitting, weight gain after smoking is common and discussed dietary, exercise and/or lifestyle changes Number of minutes spent counselin CPT code: 10813 - 4-10 Minutes PHQ-9: PHQ-9 Score PHQ-9: Total score 0 04/13/24 10:01 Depression Screening Interpretation: Negative Thrive Assessment: Date of Thrive Assessment Date Thrive assessed 04/13/24 04/13/24 10:01 Currently or been in a relationship where the following occur: No concerns reported Const General: healthy appearing, no acute distress, alert and awake Nutritional Appearance: well nourished Orientation/consciousness: oriented to person, oriented to place and oriented to time HENMT Ears: TM's normal bilaterally General nose exam: Normal nasal mucous membranes and turbinates present Eyes Conjunctivae: conjunctivae normal Sclerae: sclerae normal Pupils: Equal, round and reactive pupils present Neck Neck: Yes no lymphadenopathy and Yes no JVD Thyroid: Thyroid normal Carotids: no bruits Resp Effort & Inspection: normal respiratory effort and not tachypneic Auscultation: no crackles, no rales, no rhonchi and no wheezes Cardio Rate: regular rate Rhythm: regular rhythm Heart sounds: no murmurs and normal S1 and S2 GI Palpation (GI): Soft to palpation, nontender, no hepatomegaly and no splenomegaly Auscultation: normal bowel sounds Skin General skin exam: no rashes or lesions noted and dry skin Neuro General: oriented to person, oriented to place and oriented to time Cranial nerves: Yes Equal, round and reactive pupils present Speech: No Abnormal speech present Gait exam (Neuro): Normal gait present Motor exam (neuro): no tremor noted Extrem Right upper extremity: full ROM Left upper extremity: full ROM Right lower extremity: full ROM; no edema Left lower extremity: full ROM; no edema Psych Mental Status: mental status grossly normal Speech and movement: Normal speech and movement present Affect: normal affect Attitude: cooperative Thought process: Normal thought process present Office Procedures Flu Questionnaire Does the patient have a severe egg allergy?: No Does the patient have severe life threatening allergies?: No Does the patient have a fever or illness today?: No Has the patient ever had Guillain-[place] Syndrome?: No Has the patient ever had any past reaction to a flu shot?: No Results AMB Hemoglobin A1c AMB Hemoglobin A1c 5.9 % Last Edit by MARIA E Colorado on 04/13/24 10:01 Immunizations Fluarix Triv [id number] (PF) 45 mcg (15 mcg x 3)/0.5 mL IM syringe Performing Provider: Kalpesh Browne PA-C [facility] [facility] Administered by: MARIA E Colorado on 04/13/24 10:01 Dose Route Admin Location Dispensed Lot Number Expiration Date [facility] Inspection Supervisor 0.5 mL IM Left Deltoid 0.5 mL [id number] 11/27/24 [id number] [employer] VIS Given Date VIS Provided VIS Publication Date 04/13/24 Single Vaccine 21 Eligibility Eligibility Date Funding Source Not VFC Eligible 04/13/24 Private Results Reviewed Results Reviewed: Laboratory Last Values Hgb A1c (Clinic) 5.9 % (4.0-6.0) 04/13/24 10:01 Coding Level of Care Code Est Pt Level 4 (22964) Diagnoses Cerebrovascular accident (CVA) due to stenosis of posterior cerebral artery, unspecified blood vessel laterality I63.539 CVA mechanism: stenosis Precerebral and cerebral artery: posterior cerebral artery Laterality of affected vessel: unspecified Tobacco dependence F17.200 Hypertension, essential I10 Additional Codes KURT-7 Assessment Billing - KURT-7 Assessment Tool: KURT-7 Assessment 73465 ([id number]) PHQ-9 - 65492 - PHQ-9 Billing: Yes ([id number]) Vital Signs *Quality* - CPT code: 15881 - 4-10 Minutes ([id number]) Assessment & Plan Assessment & Plan (1) CVA (cerebral vascular accident): Code(s): I63.9 - Cerebral infarction, unspecified Category: Medical Qualifiers: CVA mechanism: stenosis Precerebral and cerebral artery: posterior cerebral artery Laterality of affected vessel: unspecified Qualified Code(s): I63.539 - Cerebral infarction due to unspecified occlusion or stenosis of unspecified posterior cerebral artery Plan: Patient continues on wrist modifications with blood pressure control, clopidogrel and moderate dose statin therapy. LDL to remain optimally below 70 (2) Tobacco dependence: Code(s): F17.200 - Nicotine dependence, unspecified, uncomplicated Category: Medical Plan: Patient does understand she needs to quit smoking though has not willing to do so at this time. (3) Hypertension, essential: Code(s): I10 - Essential (primary) hypertension Category: Medical Plan: Patient's blood pressure acceptable today in office. Will continue her current dose of antihypertensive medication with goal blood pressure to remain below 140/90 Orders: Orders AMB Hemoglobin A1c Today R73.01 - Impaired fasting glucose Comprehensive [place]. Panel Fast Today I63.539 - Cerebral infarction due to unspecified occlusion or stenosis of unspecified posterior cerebral artery Influenza 5512-1363 Immunization Today Z23 - Encounter for immunization Lipid Panel Today I63.539 - Cerebral infarction due to unspecified occlusion or stenosis of unspecified posterior cerebral artery Microalbumin, Random (w Creat) Today I10 - Essential (primary) hypertension Complete Blood Count no Diff Today I63.539 - Cerebral infarction due to unspecified occlusion or stenosis of unspecified posterior cerebral artery Medications: Changed From propranolol 10 mg PO BID F41.1 - Generalized anxiety disorder To propranolol 10 mg PO BID 90 days 180 tabs 2RF F41.1 - Generalized anxiety disorder Refilled atorvastatin 40 mg PO QPM 90 tabs 1RF I63.539 - Cerebral infarction due to unspecified occlusion or stenosis of unspecified posterior cerebral artery gabapentin 100 mg PO TID 90 days 270 caps 1RF I63.539 - Cerebral infarction due to unspecified occlusion or stenosis of unspecified posterior cerebral artery miscellaneous medical supply (Blood Pressure Cuff) As directed 1 ea 0RF I10 - Essential (primary) hypertension
[2024-04-13 09:51] VITALS: BP 98/68; PULSE 88; O2SAT 98; BMI 27.9
== END 2024-04-13 10:15 | disposition home or self-care (01) ==
PROVIDERS: PCP Physician Assistant; Visit Provider Physician Assistant
DX: I63.539 Cerebral infarction due to unspecified occlusion or stenosis of unspecified posterior cerebral artery (principal); F17.200 Nicotine dependence, unspecified, uncomplicated; I10 Essential (primary) hypertension; R73.01 Impaired fasting glucose; Z23 Encounter for immunization

== ENCOUNTER → 2024-04-13 09:45 | Outpatient (BNVA) | payer MEDICARE, MEDICAID, SELFPAY | PROVIDERS: PCP Physician Assistant; Visit Provider Physician Assistant | DX: Z23 Encounter for immunization (principal); Z13.1 Encounter for screening for diabetes mellitus; I63.539 Cerebral infarction due to unspecified occlusion or stenosis of unspecified posterior cerebral artery; I10 Essential (primary) hypertension; F17.200 Nicotine dependence, unspecified, uncomplicated; Z71.6 Tobacco abuse counseling | CPT/HCPCS: 83036; 90471; 90656; 96127; 99212 ==

== ENCOUNTER 2024-10-16 08:24 | Outpatient (REF) | payer MEDICARE, MEDICAID, SELFPAY ==
--- OUTSIDE RECORDS SUMMARY | 2024-10-16 08:31 | XMS_ITS | Clinical Summary ---
Author Organization [employer] [facility] Address [address] [place] [address] Care Team Providers Care Wireless Team Member Name Role Phone Unavailable Primary Care Provider Unavailabl e Allergies Active Allergy Reactions Criticality Noted Date Comments Aspirin 05/18/2022 Medications chlorhexidine (Peridex) 0.12 % solution Please use 15 ml solution orally as mouthwash. Swish for 60 seconds and spit. Do not rinse.Use twice daily. 473 mL 01/11/2024 Active Active Problems No known active problems Social History Tobacco Use Types Packs/Day Years Used Date Smoking Tobacco: Every Day Cigarettes Tobacco Cessation:Ready to Q uit: Not Asked; Counseling Given: Not Answered Comments Unknown Sex and Gender Information Value Date Recorded Sex Assigned at Female 03/30/2022 10:25 AM EDT Legal Sex Female 10:25 AM EDT Gender Identity Female 05/20/2022 3:48 PM EST Sexual Orientation Choose not to disclose 2023 8:38 AM EDT Plan of Treatment Health Maintenance Due Date Last Done Comments CT Colonography 1962 Colonoscopy 1962 Colorectal Cancer Screening 1962 Dental Oral Exam 1962 Dental Prophylaxis 1962 Dental X-Ray: Full Mouth 1962 Depression Screening 1962 FIT DNA/Cologuard 1962 FIT 1962 FOBT 1962 HIV Screening 1962 Lipid Panel 1962 SDOH Screening 1962 Sigmoidoscopy 1962 Alcohol/Substance Use Screening 1974 Hepatitis C Screening 1980 Pap Smear 1983 Cervical Cancer Screening 1992 HPV/Cotest 1992 Mammogram 2002 Zoster Vaccines (1 of 2) 2012 COVID-19 Vaccine ( season) 2024 05/01/2021, 09/19/2020, 08/22/2020 Influenza Vaccine (#1) 2024 3, 05/08/2020, 05/08/2020, Additional history exists Tobacco Screening 01/27/2025 01/28/2024 Dental X-Ray: Bitewings 01/28/2025 01/28/2024 DTaP/Tdap/Td Vaccines (3 - Td or Tdap) 06/29/2033 06/29/2023, 03/15/2012 RSV Patients and Patients Aged 60 years or older (1 - 1-dose 75+ series) 2037 Pneumococcal Vaccine: 50+ Years Completed 06/29/2023, 12/15/2012, 01/06/2012 HIB Vaccines Aged Out No longer eligi ble based on patient's age to complete this topic HPV Vaccines Aged Out No longer eligi ble based on patient's age to complete this topic Hepatitis A Vaccines Aged Out No long er eligible based on patient's age to complete this topic Hepatitis B Vaccines Aged Out No long er eligible based on patient's age to complete this topic IPV Vaccines Aged Out No longer eligi ble based on patient's age to complete this topic Meningococcal B Vaccine Aged Out No l onger eligible based on patient's age to complete this topic Meningococcal Vaccine Aged Out No sammi enoc eligible based on patient's age to complete this topic RSV under 20 months Aged Out No longe r eligible based on patient's age to complete this topic Rotavirus Vaccines Aged Out No longer eligible based on patient's age to complete this topic Procedures Procedure Name Priority Date/Time Associated Diagnosis Comments BITEWINGS - 2 RADIOGRAPHIC IMAGES Routine 01/28/2024 11:00 AM EDT from Last 3 Months or Most Recently Relevant to Health Maintenance Insurance [address] [place] [address], [place] [address] [facility] STAND ADULT
--- OUTSIDE RECORDS SUMMARY | 2024-10-16 08:31 | XMS_ITS | Encounter Summary ---
Author Organization [employer] [facility] Address [address] [place] [address] Care Team Providers Care Reimbursement Liaison Name Role Phone Unavailable Primary Care Provider Unavailabl e Encounter Details Date Type Department Care Team (Latest Contact Info) Description 11/21/2018 Abstract C CONVERSIONS Dental, Provider, DDS Social History Tobacco Use Types Packs/Day Years Used Date Smoking Tobacco: Never Assessed Comments Unknown Sex and Gender Information Value Date Recorded Sex Assigned at Female 03/30/2022 10:25 AM EDT Legal Sex Female 10:25 AM EDT Gender Identity Female 05/20/2022 3:48 PM EST Sexual Orientation Choose not to disclose 2023 8:38 AM EDT documented as of this encounter Plan of Treatment Not on file documented as of this encounter Visit Diagnoses Not on filedocumented in this encounter
--- OUTSIDE RECORDS SUMMARY | 2024-10-16 08:31 | XMS_ITS | Encounter Summary ---
Author Organization [employer] Address [address] [facility] [address] [place] [address] Care Team Providers Care Immigration Services Officer Name Role Phone Unavailable Primary Care Provider Unavailabl e Reason for Visit * Reason Onset Date Comments emergency visit 01/11/2024 Encounter Details Date Type Department Care Team (Late st Contact Info) Description 01/11/2024 Telephone [facility] [address] [place], [place] [phone] Allie Crawford BDS emergency visit Social History Tobacco Use Types Packs/Day Years Used Date Smoking Tobacco: Every Day Cigarettes Comments Unknown Sex and Gender Information Value Date Recorded Sex Assigned at Female 03/30/2022 10:25 AM EDT Legal Sex Female 10:25 AM EDT Gender Identity Female 05/20/2022 3:48 PM EST Sexual Orientation Choose not to disclose 2023 8:38 AM EDT documented as of this encounter Miscellaneous Notes * Telephone Encounter - Eva Martinez - 01/11/2024 8:40 AM EDT Patient is coming in today for an emergency visit at 10 am She has a very loose tooth that is causing pain. She is wanting to have tooth extracted today. It was explained to patient that emergency visits deal with the immediate emergency with pain and/or swelling and it would be to the discretion of provider if they believe the can treat same day. documented in this encounter Plan of Treatment Not on file documented as of this encounter Visit Diagnoses Not on filedocumented in this encounter
[2024-10-16 10:32] LABS: Hematocrit 39.3 % (37.0-47.0); Hemoglobin 12.8 g/dl (12.0-16.0); Mean Corpuscular HGB Conc 32.6 g/dl (31.0-35.0); Mean Corpuscular Hemoglobin 27.5 pg (27.0-33.0); Mean Corpuscular Volume 84.3 fL (80.0-98.0); Mean Platelet Volume 8.8 fL (9.4-12.3); Platelet Count 415 X10*3/uL (160-400); Red Blood Count 4.66 X10*6/uL (4.20-5.50); Red Cell Distribution Width 15.8 % (11.0-16.0); White Blood Count 7.5 X10*3/uL (4.8-10.8)
[2024-10-16 11:07] LABS: Alanine Aminotransferase 15 U/L (0-31); Albumin Level 4.2 g/dL (3.5-5.0); Alkaline Phosphatase 83 U/L (39-117); Anion Gap 12 (12-20); Aspartate Amino Transferase 20 U/L (5-31); Bilirubin Total 0.5 mg/dL (0.0-1.0); Blood Urea Nitrogen 29 mg/dL (9-16); Calcium 9.3 mg/dL (8.4-10.2); Carbon Dioxide 23 mmol/L (22-29); Chloride 110 mmol/L (96-108); Cholesterol 140 mg/dL (<200); Estimated Glomerular Filt Rate 51; Glucose Fasting 196 mg/dL (60-99); HDL Cholesterol 59 mg/dL (>40); LDL Cholesterol Calculated 66 mg/dL (<100); Sodium 141 mmol/L (135-145); Total Protein 6.7 g/dL (6.5-8.0); Triglycerides 76 mg/dL (<150)
[2024-10-16 11:14] LABS: Creatinine Urine 81.47 mg/dL; Microalbum/Creatinine Ratio Ur 6.1 ug/mg cr (<30)
== END 2024-10-16 08:25 | disposition home or self-care (01) ==
LOC: HO.HMGCLDS 08:24
PROVIDERS: PCP Physician Assistant; Visit Provider Physician Assistant
DX: Z00.00 Encounter for general adult medical examination without abnormal findings (principal); I10 Essential (primary) hypertension; F33.1 Major depressive disorder, recurrent, moderate; F41.1 Generalized anxiety disorder; F17.210 Nicotine dependence, cigarettes, uncomplicated; Z86.73 Personal history of transient ischemic attack (TIA), and cerebral infarction without residual deficits; Z79.899 Other long term (current) drug therapy
CPT/HCPCS: 36415; 80053; 80061; 82043; 82570; 85027; 96127; 99396

== ENCOUNTER 2024-10-16 08:59 | Outpatient (AMB) | payer MEDICARE, MEDICAID, SELFPAY ==
--- NOTE | 2024-10-16 09:10 | A.OFFPC_ITS ---
Vital Signs 10/16/24 09:11 Height 5 ft 0.63 in Weight 146 lb 2 oz BMI 27.9 BP 134/82 Blood Pressure Location Lt brachial Position Sitting Pulse 77 Pulse Source Pulse Oximeter Temp 97.1 F Temp Source Temporal Artery Scan Pulse Oximetry (%) 96 Oxygen Delivery Method Room Air Intake Visit Reasons: pe Information Technology Account Manager Required: No Accompanied by: Self / Same As Patient Allergies aspirin [ASA] Allergy (Intermediate, Verified 10/16/24 09:25) GI UPSET, nausea and vomiting calcium carbonate [Bufferin] Allergy (Unknown, Verified 10/16/24 09:25) Rash magnesium [Bufferin] Allergy (Unknown, Verified 10/16/24 09:25) Rash butter Allergy (Unknown, Uncoded 10/16/24 09:25) vomiting milk Allergy (Unknown, Uncoded 10/16/24 09:25) vomiting Medication List - Last Reconciled 10/16/24 by Kalpesh Browne PA-C atorvastatin 40 mg PO QPM buspirone 30 mg PO BID 90 days clopidogrel 75 mg PO QPM 90 days escitalopram oxalate 20 mg PO QAM gabapentin 100 mg PO TID 90 days hydroxyzine HCl 50 mg PO TID PRN lisinopril 10 mg PO DAILY 90 days mirtazapine 45 mg PO BEDTIME miscellaneous medical supply (Blood Pressure Cuff) As directed propranolol 10 mg PO BID 90 days quetiapine 50 mg PO BID Tobacco use date assessed: 10/16/24 Dental Screening Dental Screen Date: 10/16/24 Did you have a dental visit in the last 12 months?: Yes Did you have a dental problem in the last 6 months where you did not have access to dental care?: No Was dental information given to patient?: Patient has dentist HPI pe HPI Details Patient is a 64-year-old female here today a routine annual physical. Patient has a past medical history significant for CVA , major depressive disorder, anxiety, tobacco dependency, hypertension. .. Hypertension: Blood pressure acceptable today in office. She continues on lisinopril and propranolol. She otherwise denies any chest discomfort, dizziness or headaches. . CVA: Continues with goal blood sugar. He has no further neurological deficits on left side. Most recent lipid panel showing excellent control over total cholesterol and LDL. .. Tobacco dependency: Patient does understand she needs to quit smoking though was not willing to do so at this time. We did discuss nicotine replacement though she declines. Vaccines: Up-to-date with tetanus, pneumonia, flu and COVID vaccines. Considering shingles vaccine Mammograms: declines breast cancer screening. Colorectal cancer screening: willing to do cologaurd [facility] Surgical History S/P tooth extraction Family History (Updated 10/16/24 @ 09:30 by Kalpesh Browne PA-C) Brother Pancreatic cancer Other Mental health disorder Social History Housing: Apartment Alcohol intake: never Patient Tobacco Use Status: Current everyday Tobacco user Tobacco use type: Cigarette Cigarette Packs Per Day: 0.5 Cigarettes Per Day: 6 Years Smoked: 45 e-Cigarette/Vaping Use: Never Used Second Hand Smoke Exposure: Yes Substance Use Type: Marijuana service: No Current occupational status: disabled Cognitive needs: No Hearing needs: No Vision needs: No Questionnaire PHQ-9 Over the last 2 weeks, how often have you been bothered by any of the following problems? 1. Little interest or pleasure in doing things: not at all 2. Feeling down, depressed, or hopeless: not at all 3. Trouble falling or staying asleep, or sleeping too much: not at all 4. Feeling tired or having little energy: not at all 5. Poor appetite or overeating: not at all 6. Feeling bad about yourself - or that you are a failure or have let yourself or your family down: not at all 7. Trouble concentrating on things, such as reading the newspaper or watching television: not at all 8. Moving or speaking so slowly that other people could have noticed. Or the opposite - being so fidgety or restless that you have been moving around a lot m ore than usual: not at all 9. Thoughts that you would be better off or of hurting yourself in some way: not at all Total score: 0 Depression Screening Interpretation: Negative Depression Screening Done: Yes 82191 - PHQ-9 Billing: Yes Source: Developed by Drs. Bret Childers, Renu Cazares, Alexandru White and colleagues, with an educational elizabeth from [employer]. Thrive Questionnaire Date Thrive assessed: 10/16/24 I am a: Patient What is your living situation today?: I have a steady place to live Within the past 12 months, did the food you bought not last and you didn't have the money to get more?: I choose not to answer this question Within the past 12 months, did you worry whether your food would run out before you got money to buy more?: I choose not to answer this question Do you have trouble paying for medicines?: No Do you have trouble getting transportation to medical appointments?: No Do you have trouble paying your heating and electricity bill?: No Do you have trouble taking care of your child, family member or friend?: No Do you have trouble with day-to-day activities such as bathing, preparing meals, shopping, managing finances, etc.?: No Are you currently unemployed and looking for a job?: No Are you interested in more education?: No Please select the resources that you would like help with: Housing/Long Term Currently or been in a relationship where the following occur: No concerns reported THRIVE Score: 0 AUDIT C Alcohol Use Questionnaire (AUDIT-C) 1. How often do you have a drink containing alcohol?: Never 3. How often do you have six or more drinks on one occasion?: Never Total Score: 0 KURT-7 AMB Questionnaire KURT-7 Date KURT - 7 assessed: 10/16/24 Feeling nervous, anxious, or on edge: 0 = Not at all Not being able to stop or control worryin = Not at all Worrying too much about different things: 0 = Not at all Trouble relaxin = Not at all Being so restless that it is hard to sit still: 0 = Not at all Becoming easily annoyed or irritable: 0 = Not at all Feeling afraid as if something awful might happen: 0 = Not at all Total KURT-7 score (0-4 normal; 5-9 mild; 10-14 moderate; 15-21 severe): 0 Source: Developed by Drs. Bret Childers, Renu Cazares, Alexandru White and colleagues, with an educational elizabeth from [employer]. KURT-7 Assessment Billing KURT-7 Assessment Tool: KURT-7 Assessment 30434 Review of Systems Const Denies body aches, Denies chills, Denies excessive sweating, Denies fatigue, Denies fever(s) and Denies headache(s) Eyes Denies blurry vision ENT Denies dysphagia, Denies vertigo, Denies dizziness, Denies headache(s), Denies hearing loss and Denies tinnitus Card Denies chest pain, Denies chest pain with activity, Denies syncope, Denies irregular heart rhythm and Denies dyspnea Resp Denies chest congestion, Denies cough, Denies hemoptysis, Denies dyspnea and Denies wheezing GI Denies abdominal pain, Denies melena, Denies hematochezia, Denies coffee ground emesis, Denies dysphagia, Denies diarrhea, Denies nausea and Denies vomiting Denies urinary frequency, Denies dysuria, Denies urinary hesitancy and Denies urinary urgency Musc Denies arthralgias, Denies limited range of motion, Denies muscle cramps and Denies muscle weakness Skin/Breast Denies rash and Denies skin ulcer Neuro Denies Abnormal speech present, Denies confusion, Denies vertigo, Denies dizziness, Denies syncope, Denies headache(s), Denies memory loss and Denies seizure-like activity Psych Denies anxiety, Denies confusion, Denies depression, Denies memory loss, Denies panic attacks and Denies paranoia Endo Denies excessive sweating, Denies fatigue, Denies flushing, Denies polydipsia and Denies polyuria Aller/Immun Denies wheezing Physical exam (Primary Care) Vital Signs: Last Vital Signs Temp 97.1 F 10/16/24 09:11 Pulse 77 10/16/24 09:11 BP 134/82 10/16/24 09:11 Pulse Ox 96 10/16/24 09:11 Oxygen Delivery Method Room Air 10/16/24 09:11 BMI result Body Mass Index 27.9 Tobacco/Smoking Status: Tobacco use Status Tobacco use date assessed 10/16/24 10/16/24 09:11 Patient Tobacco Use Status Current everyday Tobacco 10/16/24 09:11 Tobacco use type Cigarette 10/16/24 09:11 e-Cigarette/Vaping Use Never Used 10/16/24 09:11 Are you ready to quit: No Tobacco cessation counseling provided: Yes Items discussed: Nicotine replacement Relapse Prevention: discussed the importance of a supportive environment, discussed negative mood or depression after quitting, weight gain after smoking is common and discussed dietary, exercise and/or lifestyle changes Number of minutes spent counselin CPT code: 36693 - 4-10 Minutes PHQ-9: PHQ-9 Score PHQ-9: Total score 0 10/16/24 09:20 Depression Screening Interpretation: Negative Thrive Assessment: Date of Thrive Assessment Date Thrive assessed 10/16/24 10/16/24 09:11 Currently or been in a relationship where the following occur: No concerns reported Const General: cooperative, comfortable, no acute distress, alert and awake; No confusion Orientation/consciousness: oriented to person, oriented to place, patient oriented x3 and No confusion HENMT Head: Yes normocephalic Ears: external ears normal and TM's normal bilaterally Face and sinus: No sinus tenderness Mouth: Normal oral and palatal mucosa present and tongue normal Teeth and gingiva: dentition normal and gingiva normal Throat: Yes posterior oropharynx normal, Yes tonsils normal and Yes uvula midline Eyes Conjunctivae: conjunctivae normal Sclerae: sclerae normal Pupils: Equal, round and reactive pupils present EOM: EOMs intact bilaterally Direct Ophthalmoscopy: No no photophobia Neck Neck: Yes no lymphadenopathy, No tender and Yes no JVD Thyroid: Thyroid normal Carotids: no bruits Chest Chest palpation & inspection: no tenderness Resp Effort & Inspection: normal respiratory effort, no audible wheezes, not labored and no stridor Auscultation: no crackles, no rales, no rhonchi and no wheezes Cardio Jugular venous distension: no JVD Rate: regular rate, not bradycardic and not tachycardic Rhythm: regular rhythm Bruits: no carotid bruits Peripheral pulses: Peripheral pulses 2+ throughout GI Inspection: Yes normal to inspection, No abdominal wall ecchymosis and No visible herniation Palpation (GI): Soft to palpation, nontender, no guarding, not rigid and No hepatosplenomegaly present Auscultation: normoactive bowel sounds General: Yes no CVA tenderness Back/Spine/Pelvis Back: no CVA tenderness and No back tenderness Cervical Spine: cervical ROM normal Thoracic/Lumbar Spine: thoracic and lumbar spine normal to inspection, straight leg raise negative bilaterally, No thoraco-lumbar ROM limited and No lumbar spinal tenderness Skin Lesions: no lesions Rashes: no rashes Wounds: no wounds Neuro General: oriented to person, oriented to place, patient oriented x3, CN's II-XI intact bilaterally and No confusion Cranial nerves: Yes Equal, round and reactive pupils present and Yes Normal accommodation reflex present Cognition (Neuro): normal cognition Speech: No Abnormal speech present Gait exam (Neuro): Normal gait present Motor exam (neuro): 5/5 motor strength present throughout Extrem Right upper extremity: full ROM; no cyanosis Left upper extremity: full ROM; no cyanosis Right lower extremity: no edema Left lower extremity: no edema Psych Appearance: grossly normal Mental Status: mental status grossly normal Affect: normal affect Attitude: cooperative Thought process: Normal thought process present Coding Level of Care Code Est Pt Prev Care 40-64y(25261) Diagnoses Annual physical exam Z00.00 Cerebrovascular accident (CVA) due to stenosis of posterior cerebral artery, unspecified blood vessel laterality I63.539 CVA mechanism: stenosis Precerebral and cerebral artery: posterior cerebral artery Laterality of affected vessel: unspecified Tobacco dependence F17.200 Hypertension, essential I10 Colon cancer screening Z12.11 Mammogram declined Z53.20 MDD (major depressive disorder), recurrent episode, moderate F33.1 Additional Codes KURT-7 Assessment Billing - KURT-7 Assessment Tool: KURT-7 Assessment 36046 ([id number]) PHQ-9 - 95187 - PHQ-9 Billing: Yes ([id number]) Vital Signs *Quality* - CPT code: 71052 - 4-10 Minutes ([id number]) Assessment & Plan Assessment & Plan (1) Annual physical exam: Code(s): Z00.00 - Encounter for general adult medical examination without abnormal findings Category: Medical Plan: as per HPI (2) CVA (cerebral vascular accident): Code(s): I63.9 - Cerebral infarction, unspecified Category: Medical Qualifiers: CVA mechanism: stenosis Precerebral and cerebral artery: posterior cerebral artery Laterality of affected vessel: unspecified Qualified Code(s): I63.539 - Cerebral infarction due to unspecified occlusion or stenosis of unspecified posterior cerebral artery Plan: Patient continues on risk modifications with blood pressure control, clopidogrel and moderate dose statin therapy. LDL to remain optimally below 70 (3) Tobacco dependence: Code(s): F17.200 - Nicotine dependence, unspecified, uncomplicated Category: Medical Plan: Patient does understand she needs to quit smoking though has not willing to do so at this time. (4) Hypertension, essential: Code(s): I10 - Essential (primary) hypertension Category: Medical Plan: Patient's blood pressure acceptable today in office. Will continue her current dose of antihypertensive medication with goal blood pressure to remain below 140/90 (5) Colon cancer screening: Code(s): Z12.11 - Encounter for screening for malignant neoplasm of colon Category: Medical Plan: Willing to do Cologuard (6) Mammogram declined: Code(s): Z53.20 - Procedure and treatment not carried out because of patient's decision for unspecified reasons Category: Medical Plan: She declines mammograms (7) MDD (major depressive disorder), recurrent episode, moderate: Code(s): F33.1 - Major depressive disorder, recurrent, moderate Category: Medical Plan: Patient reports her depression has been stable on current doses of mental health medications. She does have a psychiatry she sees regularly. Orders: Referrals Cologuard Test Z12.11 - Encounter for screening for malignant neoplasm of colon Medications: Refilled atorvastatin 40 mg PO QPM 90 tabs 1RF I63.539 - Cerebral infarction due to unspecified occlusion or stenosis of unspecified posterior cerebral artery gabapentin 100 mg PO TID 90 days 270 caps 1RF I63.539 - Cerebral infarction due to unspecified occlusion or stenosis of unspecified posterior cerebral artery buspirone 30 mg PO BID 90 days 180 tabs 1RF F41.1 - Generalized anxiety disorder clopidogrel 75 mg PO QPM 90 days 90 tabs 1RF I63.539 - Cerebral infarction due to unspecified occlusion or stenosis of unspecified posterior cerebral artery lisinopril 10 mg PO DAILY 90 days 90 tabs 1RF I10 - Essential (primary) hypertension
[2024-10-16 09:11] VITALS: BP 134/82; PULSE 77; TEMP 36.2; O2SAT 96; BMI 27.9
--- OUTSIDE RECORDS SUMMARY | 2024-10-16 09:12 | XMS_ITS | Clinical Summary ---
Author Organization [employer] [facility] Address [address] [facility] [address] [place] [address] Care Team Providers Care Bicycle Taxi Driver Name Role Phone Unavailable Primary Care Provider [...] Recently Relevant to Health Maintenance Insurance [address] [place] [address], [place] [address] [facility] STAND ADULT
--- OUTSIDE RECORDS SUMMARY | 2024-10-16 09:12 | XMS_ITS | Encounter Summary ---
Author Organization [employer] Address [address] [facility] [address] [place] [address] Care Team Providers Care Drill Rig Operator Helper Name Role Phone Unavailable Primary Care Provider Unavailabl e Reason for Visit * Reason Onset Date Comments emergency visit 01/11/2024 Encounter Details Date Type Department Care Team (Late st Contact Info) Description 01/11/2024 Telephone [facility] [address] [place], [place] [phone] Allie Crawford BDS emergency visit Social History [...]
--- OUTSIDE RECORDS SUMMARY | 2024-10-16 09:12 | XMS_ITS | Encounter Summary ---
Author Organization [employer] [facility] Address [address] [facility] [address] [place] [address] Care Team Providers Care Kraft Mill Operator Name Role Phone Unavailable Primary Care Provider [...]
== END 2024-10-16 11:28 | disposition home or self-care (01) ==
LOC: HO.HMCH 09:00
PROVIDERS: PCP Physician Assistant; Visit Provider Physician Assistant
DX: Z00.00 Encounter for general adult medical examination without abnormal findings (principal); I63.539 Cerebral infarction due to unspecified occlusion or stenosis of unspecified posterior cerebral artery; F33.1 Major depressive disorder, recurrent, moderate; F17.200 Nicotine dependence, unspecified, uncomplicated; I10 Essential (primary) hypertension; Z12.11 Encounter for screening for malignant neoplasm of colon; Z53.20 Procedure and treatment not carried out because of patient's decision for unspecified reasons